=== PATIENT | male | born 1950 | race Caucasian/White ===

== ENCOUNTER 2016-12-19 15:10 | Inpatient (IN) ==
[~2016-12-19 15:10] MED LIST: *HR* Bivalirudin 250 MG VIAL IVC ONE; *HR* Heparin 10,000 UNIT/10 ML VIAL IV ONE; *HR* Heparin 10,000 UNIT/10 ML VIAL ONE; *HR* Magnesium Sulfate 2 GM/50 ML PIGGYBACK IVPB ONE; *HR* Phenylephrine 10 MG/ML VIAL IVC ONE; 0.9 % Sodium Chloride 1,000 ML ONE; Albumin Human 25% 25 GM/100 ML IV.SOLN IV ONE; Heparin 1,000 UNITS/500 mL NS 500 ML ONE; Lidocaine 2% Syringe 100 MG/5 ML IV ONE; Mannitol 25% vial 12.5 GM/50 ML VIAL IVP ONE; Nitroglycerin 1,000 MCG/10 ML VIAL IV ONE; Sodium Bicarbonate 50 MEQ/50 ML VIAL IVC ONE
[2016-12-19] MEDS ORDERED: Verapamil 5 MG/2 ML VIAL ONE (15:21)
--- NOTE | 2016-12-19 15:21 | Emergency Department Note ---
START Narrative - START START: [facility] and informed us that they had a STEMI that they were transferring. They faxed the EKG over. I read it and confirmed the presence of ST elevations in leads 1 and aVL with reciprocal changes in the inferior leads 3 and aVF. Before the patient arrived to the emergency department we had contacted catheter lab to notify them. They prepped the catheter lab in order to have the patient taken straight they are without having to stop in the emergency department. Patient arrived to the emergency department and while they were registering him I put the orders in for catheter lab. He was taken straight from the doorway to the catheter lab. I did not even have an opportunity to lay eyes on him.
[2016-12-19] MEDS ORDERED: *HR* FentaNYL (PF) 250 MCG/5 ML VIAL ONE (15:27)
[2016-12-19] MEDS ORDERED: *HR* Midazolam HCl 5 MG/5 ML VIAL IVP ONE ×2 (15:27→17:19)
[2016-12-19] MEDS ORDERED: Nitroglycerin 25 MG/250 ML INFUS..BTL IVC ONE ×3 (15:46→18:41)
[2016-12-19 16:15] LABS: Hematocrit 36.3 % (37.5-50.1); Hemoglobin 11.9 g/dL (12.9-16.9); Mean Corpuscular HGB Conc 32.8 g/dL (31.6-35.5); Mean Corpuscular Hemoglobin 30.8 pg (28.0-33.3); Mean Platelet Volume 9.7 fL (9.4-12.4); Platelet Count 245 K/mcL (140-400); Red Blood Count 3.86 M/mcL (4.19-5.50); Red Cell Distribution Width 13.8 % (11.5-14.5)
[2016-12-19 16:22] LABS: INR 1.1; Prothrombin Time 11.9 Seconds (9.4-12.1)
[2016-12-19 16:30] LABS: Albumin 3.1 g/dL (3.5-5.0); Albumin/Globulin Ratio 0.8 (1.1-2.2); Bilirubin,Total 0.5 mg/dL (0.2-1.2); Calcium 8.6 mg/dL (8.6-10.8); Globulin 3.7 g/dL (2.4-3.5); Potassium 4.1 mEq/L (3.5-4.5); Total Protein 6.8 g/dL (6.0-8.3)
--- NOTE | 2016-12-19 16:36 | Cardiothoracic Consult Note ---
Date of Encounter: 12/19/16 Time of Encounter: 16:32 Assessment and Plan (1) CAD (coronary artery disease) Current Visit: Yes Status: Acute The assessment and plan as outlined above was discussed with the patient and/or family members who expressed understanding and agreement. All questions were answered. Qualifiers: Coronary Disease-Associated Artery/Lesion type: [place] artery [place] vs. transplanted heart: [place] heart Associated angina: with unstable angina Qualified Code(s): I25.110 - Atherosclerotic heart disease of [place] coronary artery with unstable angina pectoris (2) STEMI (ST elevation myocardial infarction) Current Visit: Yes Status: Acute The patient is a 66-year-old hypertensive man with hypercholesterolemia and peripheral arterial disease who was transferred to [facility] from the [facility] with the diagnosis of an acute STEMI. The patient underwent emergent cardiac catheterization was found to have severe 3 vessel CAD. In particular the patient had a high-grade ostial left main lesion , a 70% proximal LCx lesion 70-80% proximal OM2 lesion, and a completely occluded distal RCA which filled via [id number] collaterals. The patient was recommended for emergent CABG due to the severity of his disease and ongoing symptoms. I concur with this recommendation. The patient will be taken for CABG this evening. The assessment and plan as outlined above was discussed with the patient and/or family members who expressed understanding and agreement. All questions were answered. Qualifiers: Involved coronary artery: left main coronary artery Qualified Code(s): I21.01 - ST elevation (STEMI) myocardial infarction involving left main coronary artery - History of Present Illness Consult date: 12/19/16 Requesting physician: Marcelino Vaca Consult reason: CABG evaluation. Chief complaint: Substernal chest pain. History of present illness: Mr. Hargrove is a 66 year old hypertensive man with known peripheral arterial disease was transferred to [facility] from the [facility] the diagnosis of an acute STEMI. The patient states that he is had intermittent substernal chest pain radiating from his left shoulder to his right shoulder and down his left arm for approximately 1 week. The pain occurs with both activity and at rest and resolves spontaneously after 20-30 minutes. The symptoms are not associated with shortness of breath, dyspnea on exertion, diaphoresis, nausea, vomiting, heart palpitations, or syncope. The patient was at the [facility] today smoking a cigarette when he had onset of severe substernal chest pain. During the evaluation he was found to have elevated troponin I levels consistent with an acute STEMI. he was transferred to [facility] for further cardiac care. The patient underwent cardiac catheterization was found to have severe 3 vessel CAD and LVEF 45%. In particular the patient has a 70-80% ostial left main lesion , a 70-80% proximal LCx lesion, a 70-80% mid LCx/OM 2 lesion, and a completely occluded distal RCA which fills distally via [id number] collaterals. The patient has been recommended for emergent CABG. Past Med Surg Social Fam HX - Past Medical History Medical history: COPD, coronary artery disease, hyperlipidemia, hypertension, peripheral artery disease, renal disease (Stage IV) - Past Surgical History Surgical History: appendectomy, cataract (Bilateral implants implantation.), vascular surgery (Aortobifemoral bypass.), other (Right upper extremity AV fistula formation. ) - Social History Smoking Status: Current every day smoker Packs per day: 1ppd X 56 years Smokeless Tobacco Status: No Alcohol use: rarely Drug use: none Occupational status: retired Current living situation: Home - Independent Activity Level: Independent ambulation Recent Out of Country Travel Within the Last 8 Weeks: No Exposure or Possible Exposure to Illness During Travel: No Medications and Allergies Allergies No Known Allergies Allergy (Unverified 12/19/16 15:55) All Systems Review: A 10-system review of systems was performed and is negative for pertinent findings except as documented above in the HPI. Physical Examination General: Conversant, No Apparent Distress HEENT: Atraumatic, Normocephaly, Trachea midline Neck: No JVD, Normal carotid pulses Cardiac: Reg Rate and Rhythm, Normal S1 and S2, No Murmur Lungs: Normal Breath Sounds, No Wheeze, Rales, Rhonchi Neuro: Alert and responsive, No focal deficits noted, Motor nerves intact, Sensory nerves intact Vascular: Normal capillary refill Musculoskeletal: No Chest Wall Tenderness Extremities: No Clubbing, No Cyanosis, No Edema, Other (Pulses present in the upper extremities and absent below the femoral arteries in both lower extremities. ) Results 12/19/16 21:20 12/19/16 21:20 Lab Results, Last 24 hours 02/13/17 02/13/17 02/13/17 16:02 16:02 16:02 WBC 12.4 H Hgb 11.9 L Hct 36.3 L Plt Count 245 INR 1.1 Sodium 135 L Potassium 4.1 Chloride 110 H Carbon Dioxide 14 L BUN 48 H Creatinine 3.45 H Glucose 109 H Calcium 8.6 Total Bilirubin 0.5 AST 17 ALT 15 Alkaline Phosphatase 77 Consult Discharge Plan - Plan [facility] Care Provider[facility] -
--- NOTE | 2016-12-19 16:39 | Cardiology Consult Note ---
Date of Encounter: 12/19/16 Time of Encounter: 15:30 Assessment and Plan Discussion w patient/family: The assessment and plan as outlined above was discussed with the patient and/or family members who expressed understanding and agreement. All questions were answered. Thank you for involving us in the care of your patient. Please call with any questions. patient has left main disease and needs urgent surgery. Spoke With Dr. Lopez. and seen in the ammunition assembly ii laborer with him. History of Present Illness Consult date: 12/19/16 Consult reason: STEMI Chief complaint: chest pain History of present illness: Mr. Hargrove is a 66 year old male was at home and smoking and started chest pain with radiation to the left arm. Seen at the [facility] and diagnosed with anterior wall STEMI. Transferred directly to this ammunition assembly ii laborer. I met patient on the table and discussed procedure. He had previous caths times two. Has renal failure and does have a shunt in the right arm but probably not dialyzed yet. Has prior bilateral aorto-femoral bypass. We did approach from the left radial Past Med Surg Social Fam HX - Past Surgical History Surgical History: other (s/p aorto-bifemoral bypass) Medications and Allergies Allergies No Known Allergies Allergy (Unverified 12/19/16 15:55) All Systems Review: A 10-system review of systems was performed and is negative for pertinent findings except as documented above in the HPI. - Constitutional Constitutional: anorexia, fever(s), night sweats - EENT Nose, mouth and throat: dysphagia - Cardiovascular Cardiovascular: as per HPI, chest pain with exertion, claudication, dyspnea on exertion, radiating jaw, neck or arm pain Physical Examination General: Conversant, No Apparent Distress HEENT: Normocephaly, Mucus Membranes Moist Cardiac: Reg Rate and Rhythm, Normal S1 and S2 Lungs: Normal Breath Sounds, No Wheeze, Rales, Rhonchi Neuro: Alert and responsive, No focal deficits noted Musculoskeletal: No Chest Wall Tenderness Extremities: No Clubbing, No Cyanosis Results 12/19/16 16:02 12/19/16 16:02 Lab Results 12/19/16 12/19/16 12/19/16 16:02 16:02 16:02 WBC 12.4 H Hgb 11.9 L Hct 36.3 L Plt Count 245 INR 1.1 Sodium 135 L Potassium 4.1 Chloride 110 H Carbon Dioxide 14 L BUN 48 H Creatinine 3.45 H Glucose 109 H Calcium 8.6 Total Bilirubin 0.5 AST 17 ALT 15 Alkaline Phosphatase 77 Consult Discharge Plan - Plan [facility]: [facility] [Primary Care Provider[facility] -
[2016-12-19] MEDS ORDERED: ceFAZolin 2,000 MG in D5% in Water 100 ML IVPB ONE (16:42)
[2016-12-19 16:47] LABS: Activated Partial Thrombo Time 176.1 Seconds (26.0-36.0)
--- NOTE | 2016-12-19 16:47 | Invasive Diagnostic Lab Proc ---
Name: Bill Hargrove Date of Study: 12/19/2016 Date: 1950 Ht: 67.0in Medical Record#: [id number] Age: 66 Wt: 160.28lb Gender: Male BSA: 1.84 Order #: [id number] BMI: 25.1 Physicians Procedure Physician: Stewart Vaca MD Referring MD: Referring MD: Staff Name Position Time In Chantelle Frank RT Scrub 03:20 PM Sheyla Jacques RN Dredge Master 03:20 PM [facility], Mónica RT (R) Monitor 03:20 PM Indications Indication STEMI Procedures Performed Procedure L HRT ARTERY/VENTRICLE ANGIO Pre-Procedure Checklist Informed consent is complete signed and on chart. H\\T\\P is on chart. ID band is on and ID verified with patient. Patient NPO for procedure The procedure was described for the patient and questions were answered. Blood Pressure: 114/64 ECG is on chart. Rhythm: NSR Plan of Care Patient will tolerate the procedure without complications. Adequate level of comfort will be maintained. Hemodynamics will remain stable Patient will recover from procedure without complications. Respiratory function will be maintained. Cardiac rhythm will remain stable. Patient temperature will be maintained. Patient and/or family have verbalized understanding of the procedure. Patient Education Intravenous Access Time IV Size Location DC'd Fluid/Drip Rate Units RN 03:33 PM 20g 1 11/09" Patent On Arrival Lt Hand 0.9NaCl 25 ml/hr Sheyla Jacques RN Allergies Nkda No Known Allergies Vital Signs Time BP (mmHg) HR (bpm) O2 Sat. RR (bpm) LOC 03:21 PM 109 / 60 64 95 % 16 5 = Fully awake and oriented or at pre-proc level 03:21 PM / % 5 = Fully awake and oriented or at pre-proc level 03:17 PM 114 / 64 68 96 % 11 03:22 PM 85 / 59 181 96 % 18 03:22 PM 97 / 62 65 96 % 14 03:27 PM 110 / 54 62 96 % 16 03:32 PM 109 / 60 62 95 % 15 03:37 PM 108 / 91 66 92 % 23 03:42 PM 110 / 93 61 93 % 15 03:47 PM 100 / 50 65 94 % 23 03:52 PM 108 / 54 68 93 % 20 03:57 PM 100 / 83 70 93 % 15 04:02 PM 96 / 56 83 92 % 22 04:07 PM 103 / 53 69 92 % 17 Procedural Medications Time Medication Dose Units Method Given By 03:21 PM Oxygen 2 L/min nasal cannula Sheyla Jacques RN 03:34 PM Versed 1 mg Intravenous Sheyla Jacques RN 03:34 PM Fentanyl 50 mcg Intravenous Sheyla Jacques RN 03:35 PM Lidocaine 2% 2 ml Subcutaneous Stewart Vaca MD 03:36 PM Heparin 4000 units Nitroglycerin 200 mcg Verapamil 2.5 mg Intraarterial Stewart Vaca MD 03:38 PM Oxygen 4 L/min nasal cannula Sheyla Jacques RN 03:40 PM Oxygen 6 L/min nasal cannula Sheyla Jacques RN 03:45 PM Nitroglycerin 200 mcg Intracoronary stewart Vaca md 04:02 PM Nitroglycerin 5 mcg/min Intracoronary Sheyla Jacques RN Paty Score Preprocedure Postprocedure Activity 2- Moves 4 extremities sustained head lift Activity 2- Moves 4 extremities sustained head lift Circulation 2- SBP +/= 20 points of pre-anesthetic level Circulation 2- SBP +/= 20 points of pre-anesthetic level Consciousness 2- Awake and alert oriented x 3 Consciousness 2- Awake and alert oriented x 3 O2 Saturation 2- Able to maintain O2 satruation of 92% on room air O2 Saturation 2- Able to maintain O2 satruation of 92% on room air Respiratory 2- Able to deep breathe and cough well Respiratory 2- Able to deep breathe and cough well Total Score 10 Total Score 10 Contrast Agent: Isovue Diagnostic Contrast: 113 ml Total Contrast: 113 ml Fluoro Dose: 353 mGy Procedure Log Time Note Enter By 03:13 PM Pt arrived to flower shop laborer/designer 2 at 15:13 tsites 03:16 PM Vitals capture started with the following parameters, Patient=Adult, Interval=5 min, Initial Zbronfpr=541 mmHg, Deflation Rate=5 mmHg, Cuff placed on Left Leg 03:16 PM CathStat 03:17 PM HR=68 bpm, QDMW=203/64 mmhg, SpO2=96.0 %, Resp=11 B/min 03:20 PM Meet and greet completed tsites 03:20 PM Patient charges- Angio tray pack, Navilyst 3mm J, Pulse Oximetry and ACIST tubing and transducer tsites 03:20 PM Chantelle Frank RT Position: Scrub Time in: 15:20 tsites 03:20 PM Sheyla Jacques RN Position: Dredge Master Time in: 15:20 tsites 03:21 PM Elder Mónica RT (R) Position: Monitor Time in: 15:20 tsites 03: PM Case Delayed No tsites 03: PM Hair removed from procedure site in holding area using clippers. Bilateral groin and lt wrist prepped with Chloraprep by Valentina Johnston RN then patient draped. Skin intact. tsites 03: PM Time: 15:21 Oxygen on at 2 L/min per nasal cannula by Sheyla Jacques RN tsites 03: PM Time: 15:21 Patient comfortable and pain free: Yes tsites : PM Time: 15:21LOC: 5 = Fully awake and oriented or at pre-proc level tsites 03:21 PM Clinical Presentation: STEMI or equivalent tsites 03:22 PM QS=798 bpm, NIBP=85/59 mmhg, SpO2=96.0 %, Resp=18 B/min 03:22 PM NIBP STAT measurement started. 03:22 PM HR=65 bpm, NIBP=97/62 mmhg, SpO2=96 %, Resp=14 B/min 03:25 PM Pressure channel 1 zeroed. 03:27 PM no labs drawn prior to procedure tsites 03:27 PM HR=62 bpm, UWAD=651/54 mmhg, SpO2=96.0 %, Resp=16 B/min 03:28 PM Recorded ECG: HR=66 Condition=Condition 1 03:30 PM Physician arrived 15:30 tsites 03:30 PM Procedure start 15:30 tsites 03:32 PM HR=62 bpm, XAQN=538/60 mmhg, SpO2=95.0 %, Resp=15 B/min 03:32 PM Time out performed according to hospital policy tsites 03:34 PM Time: 15:34 Versed 1 mg Intravenous Given by Sheyla Jacques RN 03:34 PM Time: 15:34 Fentanyl 50 mcg Intravenous Given by Sheyla Jacques RN tsites 03:35 PM Time: 15:35 2 ml Lidocaine 2% to left radial Subcutaneous Given by Stewart Vaca MD tsites 03:35 PM Access obtained by percutaneous puncture. 5Fr 10cm Terumo Glidesheath sheath placed in left Radial artery. [id number] tsites 03:36 PM Time: 15:36 Patient given 4,000 units Heparin, 200 mcg Nitroglycerin, and 2.5 mg Verapamil Intraarterial by Stewart Vaca MD tsites 03:36 PM Time: 15:21 Patient comfortable and pain free: Yes tsites 03:36 PM Time: 15:21LOC: 5 = Fully awake and oriented or at pre-proc level tsites 03:37 PM 5Fr FR 4 catheter inserted over the wire DN tsites 03:37 PM HR=66 bpm, KRTP=705/91 mmhg, SpO2=92 %, Resp=23 B/min 03:38 PM 0.035 260cm Navilyst 3mmJ wire [id number] tsites 03:38 PM Wire removed tsites 03:38 PM Time: 15:38 Oxygen on at 4 L/min per nasal cannula by Sheyla Jacques RN tsites 03:39 PM RCA angiography performed in multiple views. tsites 03:39 PM wire reinserted catheter removed tsites 03:40 PM 6Fr XB LAD 3.5 [place] Bright-Tip guide catheter was used to cannulate the PCI vessel successfully. reused? No tsites 03:40 PM Time: 15:40 Oxygen on at 6 L/min per nasal cannula by Sheyla Jacques RN tsites 03:41 PM Guide wire removed intact. tsites 03:41 PM LCA angiography performed in multiple views. tsites 03:41 PM Recorded Pressure: Ao, HR=64, Condition=Condition 1 (Aorta) Ao 119/53/76 03:42 PM HR=61 bpm, JTEC=808/93 mmhg, SpO2=93 %, Resp=15 B/min 03:45 PM Time: 15:45 Nitroglycerin 200 mcg Intracoronary Given by stewart Vaca md tsites 03:46 PM 5Fr Pigtail catheter inserted over the wire DN tsites 03:46 PM Catheter selectively placed in left ventricle tsites 03:47 PM HR=65 bpm, PCYB=940/50 mmhg, SpO2=94.0 %, Resp=23 B/min 03:47 PM Recorded Pressure: LV, HR=68, Condition=Condition 1 (Left Ventricle) LV 131/20/29 03:48 PM Bolus angiogram of left Ventricle complete: 10 ml/sec for a total of 30 mls tsites 03:48 PM Recorded Pressure: LV, Ao, HR=68, Condition=Condition 1 (Left Ventricle) LV 134/24/36, (Aorta) Ao 137/65/92 03:48 PM wire reinserted catheter removed tsites 03:50 PM Procedure completed at 15:50 tsites 03:50 PM Cardiothoracic surgeon consulted by physician tsites 03:52 PM HR=68 bpm, NICX=567/54 mmhg, SpO2=93.0 %, Resp=20 B/min 03:52 PM Sign out completed: Radiation Dose 353 mGy Fluoro Time: 3.2 Isovue 370 - 500ml contrast 113 ml given by Stewart Vaca MD. Complications: NoneCardiac Rehab Consult needed: YesConfirmed administered medications: Yes tsites 03:57 PM HR=70 bpm, OOQX=542/83 mmhg, SpO2=93 %, Resp=15 B/min 04:02 PM HR=83 bpm, NIBP=96/56 mmhg, SpO2=92 %, Resp=22 B/min 04:02 PM Time: 16:02 Nitroglycerin 5 mcg/min Intracoronary Given by Sheyla Jacques RN tsites 04:03 PM labs drawn and sent to lab pt getting ready for open heart tsites 04:07 PM HR=69 bpm, BCIX=013/53 mmhg, SpO2=92 %, Resp=17 B/min 04:[address] lopez arrived to review films tsites 04:21 PM Sheath left in place for Henna tsites 04:21 PM Post ECG NSR tsites 04:21 PM Post Blood Pressure 103/53 tsites 04:22 PM 16:21 Post Pulses Bilateral DP \\T\\ PT 2+ tsites 04:22 PM 16:22 Post Pulses Rt Radial 2+ tsites 04:22 PM Information taught Cardiac Cath tsites 04:22 PM Education needs Procedure, Plan of Care, and Responsibilities of Patient in Care tsites 04:22 PM Learning barriers :None tsites 04:22 PM Education Methods Verbal tsites 04:22 PM Education evaluation Able to repeat information tsites 04:22 PM Site status No bleeding/hematoma - Rt Wrist as reported by Chantelle Frank RT at 16:22 tsites 04:24 PM Report given to lorena RAMÍREZ Pt taken to ICU Room #11. 16:24 tsites 04:24 PM Plavix, Effient or Brilinta given No tsites 04:26 PM Delay to floor No tsites 04:26 PM Patient out of room: 16:26 tsites 04:26 PM Family placed in icu waiting area for DR Lopez. tsites 04:31 PM Coronary Dominance: right tsites 04:32 PM Lesion found in LMCA. Pre Stenosis: 90 Pre DIONE Flow: tsites 04:32 PM Lesion found in Right PDA. Pre Stenosis: 100 Pre DIONE Flow: tsites 04:32 PM Lesion found in Mid Circumflex. Pre Stenosis: 75 Pre DIONE Flow: tsites 04:32 PM Left Main Coronary Artery with 90% stenosis tsites 04:33 PM Circumflex, Obtuse Marginal, Left Posterior Descending, and Left Posterolateral Coronary Arteries with 75 % stenosis. If graft is supplying this area, % stenosis tsites 04:33 PM Right Coronary, Right Posterior Descending Arteries with Right Posterolateral and Acute Marginal branches with 100 % stenosis. If graft is supplying this area, % stenosis tsites Complications Complication None Hemodynamics Pressures Site Systolic/A Wave Diastolic/V Wave Mean AO 119 53 76 LV 131 20 29 LV 134 24 36 AO 137 65 92 Post Procedure Information Blood Pressure: 103/53 mmHg Rhythm: NSR Post procedural instructions were given Surgery consult for CABG Closure Device Time Device Success/Fail 12/19/2016 4:26:00 PM Site Checks Time Location Status Staff Sheath In? Note 04:22 PM Rt Wrist No bleeding/hematoma Chantelle Frank RT Pulses Time Site Pre-Procedure Post-Procedure Note Bilateral DP \\T\\ PT 2+ Bilateral radial 2+ Rt Radial Normal plethysmography's Test 4:21:00 PM Bilateral DP \\T\\ PT 2+ 4:22:00 PM Rt Radial 2+ Updated by Mónica Friedman RT (R) on 12/19/2016 4:40:21 PM Mónica Friedman RT electronically signed on 12/19/2016 4:42:15 PM with status of Final
[2016-12-19 16:54] LABS: Heparin anti-factor XA UFH 0.72 IU/mL (0.30-0.70)
[2016-12-19] MEDS ORDERED: *HR* Phenylephrine 10 MG/ML VIAL ONE (16:55)
[2016-12-19] MEDS ORDERED: *HR* Norepinephrine 4 MG/4 ML VIAL IVC ONE (16:55)
[2016-12-19] MEDS ORDERED: *HR* Rocuronium Bromide 50 MG/5 ML VIAL ONE ×2 (16:55→17:12)
[2016-12-19] MEDS ORDERED: *HR* EPINEPHrine 1 MG/ML AMPUL ONE ×2 (16:56→21:27)
[2016-12-19] MEDS ORDERED: Protamine Sulfate 250 MG/25 ML VIAL IVP ONE (16:56)
[2016-12-19] MEDS ORDERED: Famotidine 20 MG/2 ML VIAL ONE (16:56)
[2016-12-19] MEDS ORDERED: Tranexamic Acid 1,000 MG/10 ML VIAL ONE ×2 (16:56→18:46)
[2016-12-19] MEDS ORDERED: *HR* Etomidate 20 MG/10 ML AMPUL IVP ONE (16:56)
[2016-12-19 17:04] LABS: Hemoglobin A1C 5.2 %
[2016-12-19] MEDS ORDERED: NiCARdipine 2.5 MG/10 ML Syringe IVPB ONE (17:11)
[2016-12-19] MEDS ORDERED: *HR* FentaNYL (PF) 1,000 MCG/20 ML VIAL ONE (17:20)
--- NOTE | 2016-12-19 17:33 | Invasive Diagnostic Lab ---
Name: Bill Hargrove Date of Study: 12/19/2016 Date: 1950 Ht: 170.2 cm /67.0 in Medical Record#: [id number] Age: 66 Wt: 72.7 kg / 160.28 lb Account/Order#: [id number] Gender: Male BSA: 1.84 Order #: [id number] Fluoro Dose: 353 mGy BMI: 25.1 Procedure Physician: Marcelino Vaca MD Referring MD: Referring MD: Procedures Performed: LEFT HEART CATH Indications: STEMI Impressions: There is severe two vessel coronary artery disease. And left main ostial stenosis 90% The left ventricle is abnormal and has EF 45% anterior hypo to akinesia Recommendations: . Aggressive risk factor modification. Suggest patient have Emergent coronary artery bypass surgery evaluation. Viewed images in the wetlands conservation laborer with Dr. Lopez Procedure Access obtained in the left Radial artery by percutaneous puncture Complications: None Contrast: Isovue 113ml Hemodynamics: Pressures Site Systolic/ A Wave Diastolic/ V Wave End Diastolic/ Mean HR AO 119 53 76 64 LV 131 20 29 68 LV 134 24 36 69 AO 137 65 92 67 LV Ventriculography Ejection Method: LV Gram Ejection Fraction: 45% Wall Motion: WELLER Anterobasal Normal Anterolateral Normal Apical: Normal Inferoapical Akinesis Inferobasal Normal Coronary Dominance: right Lesion Findings/Interventions * Left Main Coronary Artery There is a 90% stenosis in the LMCA. * Left Anterior Descending The LAD is angiographically free of disease. The 1st Diagonal is angiographically free of disease. * Circumflex There is a 75% stenosis in the Mid Circumflex. * Right Coronary Artery There is a 100% stenosis in the Right PDA. Additional Findings: Aorta * Normal appearing aortic root. Updated by Mónica Friedman RT (R) on 12/19/2016 4:42:21 PM Marcelino Vaca MD electronically signed on 12/19/2016 5:28:00 PM with status of Final
[2016-12-19] MEDS ORDERED: *HR* Amiodarone 150 MG/3 ML VIAL IVPB ONE (18:29)
[2016-12-19] MEDS ORDERED: Amiodarone Premix 360 MG/200 ML BAG IVC ONE ×3 (18:29→21:52)
[2016-12-19] MEDS ORDERED: niCARdipine 40 MG/200 ML MLS IVC ONE (18:42)
[2016-12-19] MEDS ORDERED: Albumin Human 5% 50.0 GM/1,000 ML VIAL ONE (18:42)
[2016-12-19] MEDS ORDERED: 0.9 % Sodium Chloride w KCl 20 MEQ/1,000 ML MLS IVC ONE (18:44)
--- NOTE | 2016-12-19 19:22 | Anesthesia Evaluation PreOp ---
Date of Encounter: 12/19/16 Time of Encounter: 17:30 - Past History Planned Operation: emergent CABG Cardiac History: Angina, HTN, Hyperlipidemia, Other (PAD) Pulmonary History: Smoker, Pack/yr (1ppd x 56 yrs) COLLEGE DEAN History: Denies Any Significant HX Other Medical History: Renal (Stage 4 CKD, not on dialysis but has fistula in right arm) Anesthesia History: No Prior Anesthetic Complications, Past Anesthesia ( Appendectomy, Aorta-Bifem BPG, fistula placement) Alcohol Use: rarely Drug use: none Medications and Allergies Allergies No Known Allergies Allergy (Unverified 12/19/16 15:55) - Meds/Allergy Pre-op Review Medications Reviewed: Yes Allergies Reviewed: Yes Beta Blockers on Current Med List: No Anesthesia Results - Labs 12/20/16 03:00 12/20/16 04:14 - Imaging Additional studies: cath shows 3 vessel disease, EF 45% Anesthesia Exam Selected Entries 12/19/16 17:18 Pulse Rate 62 Respiratory Rate 22 Blood Pressure 108/66 O2 Sat by Pulse Oximetry 93 L Oxygen Flow Rate (LPM) 4 Height: 170cm Weight: 72kg NPO (# of Hours): 8 Pain Scale: 0 Pain Scale Used: Numeric (1 - 10) - HEENT Pupil (Motor): EOMI Mallampati: II Teeth: Edentulous Oral Opening: Greater than 3 - COLLEGE DEAN LOC: Oriented [place] Motor: Normal RUE, Normal LUE, Normal RLE, Normal LLE, Normal Face COL[place]AN Sensory: Normal: RUE, LUE, RLE, LLE, Face - Cardiac Rhythm: Regular Murmur: None - Pulmonary Breath Sounds: bilateral Clear Respiratory Effort: Symmetrical Anesthesia Assess/Plan ASA Score: 4, E Modified [place] Scale for Level of Consciousness: Cooperative, oriented, and tranquil Anesthetic Plan: General Monitoring Plan: Standard Monitors, A-Line (patient has sheath margarette place from paving and surfacing labourer and will use it for toby), PAC Recovery Plan: PACU (discussed risks of GA, lines, blood and possible LADAN. Questions answered and agrees to proceed.)
[2016-12-19] MEDS ORDERED: 0.9 % Sodium Chloride 250 ML ONE (21:27)
--- NOTE | 2016-12-19 21:31 | Operative Note ---
Date of procedure: 12/19/16 Pre-op diagnosis: CAD with STEMI Post-op diagnosis: same Procedure: 1. CABG 5 (HAN to LAD, triple sequential saphenous vein graft to D1 then OM1 then OM 2, SVG to PDA). 2. Endoscopic vein harvesting, greater saphenous vein from right lower extremity. Implants: None. Complications: None. Anesthesia: BLADIMIR Surgeon: Corina Lopez Clerk Analyst: Srinivas Gonzalez Specimen: None. Condition: stable Disposition: ICU Procedure in Detail: INDICATIONS FOR OPERATION: The patient is a a 66 year old hypertensive man with known peripheral arterial disease was transferred to [facility] from the [facility] the diagnosis of an acute STEMI. The patient states that he is had intermittent substernal chest pain radiating from his left shoulder to his right shoulder and down his left arm for approximately 1 week. The pain occurs with both activity and at rest and resolves spontaneously after 20-30 minutes. The symptoms are not associated with shortness of breath, dyspnea on exertion, diaphoresis, nausea, vomiting, heart palpitations, or syncope. The patient was at the [facility] today smoking a cigarette when he had onset of severe substernal chest pain. During the evaluation he was found to have elevated troponin I levels consistent with an acute STEMI. he was transferred to [facility] for further cardiac care. The patient underwent cardiac catheterization was found to have severe 3 vessel CAD and LVEF 45%. In particular the patient has a 70-80% ostial left main lesion , a 70-80% proximal LCx lesion, a 70-80% mid LCx/OM 2 lesion, and a completely occluded distal RCA which fills distally via [id number] collaterals. The patient has been recommended for emergent CABG. FINDINGS AT OPERATION: The aorta was of normal caliber without calcification. The patient had moderate pulmonary hypertension with systolic pulmonary artery pressures 45-50mm Hg. The coronary arteries measure approximately 2-3 mm in diameter and had mild distal disease. The greater saphenous vein was harvested endoscopically from the right lower extremity from the knee to the groin and was of good quality. The total bypass time was 86 minutes, cross-clamp time 50 minutes, intentional hypothermia of 34.2C. DESCRIPTION OF OPERATION: After obtaining informed consent from the patient, he was taken to the operative room where satisfactory general endotracheal anesthetic was induced. Appropriate monitor lines placed, and the patient's chest, abdomen, and lower extremities were prepped and draped in a sterile fashion. The greater saphenous vein was harvested endoscopically from the right lower extremity from the knee to the groin and was of good quality. The subcutaneous tissue and skin edges were reapproximated running Vicryl sutures. Simultaneously, a standard medium sternotomy incision was made and the sternum divided. At this point the patient was noted to be in ventricular tachycardia and the pericardium was rapidly opened and the patient cardioverted with a 10 J direct current shock. The patient's heart regained normal sinus rhythm. The HAN was taken down from its bed and side branches divided between hemoclips. The sternum was and the pericardium was reflected laterally. The patient was prepared for cannulation by placing pursestring sutures in the distal ascending aorta, mid-ascending aorta, and right atrial appendage. The patient was heparinized and when the ACT was greater than 200 seconds, the distal ascending aorta was cannulated followed by placement of a dual stage venous cannula through the right atrial appendage and into the IVC. A stab-in antegrade metabolic cannula was placed in the mid-ascending aorta. The patient was placed on bypass and the temperature allowed to drift to 34.2 C. The distal targets were identified and the aorta was then crossclamped. The patient received 500 cc of cold antegrade crystalloid cardioplegia through the aortic root and the patient's heart obtain rapid diastolic arrest. The PDA was opened with the blade and the vein was anastomosed in an end-to-side fashion using a running 7-0 Prolene suture. The anastomosis was found to be hemostatic. This process was repeated for the OM2 branch. After completion of this anastomosis the OM1 branch was opened with a [place] blade and the vein was opened in a longitudinal fashion so that a wouy-in-zwhl anastomosis could be completed using a running 7-0 Prolene suture. The anastomosis was found to be hemostatic and the patient received a note the dose of cold antegrade crystalloid cardioplegia through the aortic root. The D1 branch was opened with a [place] blade and the vein was opened in a longitudinal fashion so that a side- to-side anastomosis could be completed using a running 7-0 Prolene suture. The anastomosis found to be hemostatic. It should be noted that a single vein segment was used for all 3 sequential grafts. The patient received a final dose of cold antegrade crystalloid cardioplegia through the aortic root. The LAD was then opened with a [place] blade and the HAN was anastomosed in end-to-side fashion using a running 7-0 Prolene suture. The anastomosis hemostatic and the mammary pedicle was tacked to the epicardium using interrupted 5-0 silk suture. Rewarming was begun during this anastomosis. The aortic cross-clamp was released and the heart distended. The veins were then measured to appropriate length. A partial occluding clamp was then placed across the mid-ascending aorta and the antegrade cardioplegia cannula was removed. An additional aortotomy site was then made with 11 blade and both sides were enlarged with a 4 mm punch. The veins were then anastomosed in an end -to-side fashion to the aorta using a running 5-0 Prolene suture. The vein grafts were occluded with bulldog clamps and D of the 25-gauge needle prior to removing the partial occluding clamp. The proximal and distal anastomoses were found to be hemostatic and the proximal anastomoses were marked with radiopaque loops. Two right ventricular temporary epicardial patient was placed, and 3 Chest were placed, 2 in the mediastinum and one in the left pleural space. During rewarming the patient's heart regained sinus rhythm spontaneously. The patient's systemic temperature reached 36C he was ventilated and received volume. He was then weaned from bypass and initially required no inotropic support. Protamine was administered and the aortic and venous caries removed. The pursestring sutures were secured and the cannulation sites were reinforced with 4-0 Prolene suture. At this point the patient became bradycardic and hypotensive and the pulmonary artery pressures increased slightly. The patient was given calcium and epinephrine and prepared for cardiopulmonary bypass. After the heparin had been administered the patient's systolic pressure began to gradually improve and it was decided not to reinitiate cardiopulmonary bypass. No further protamine was administered, thinking that this episode may have been related to a protamine reaction. The pericardium was loosely placed over the aorta and the pulmonary artery, but not reapproximated using 0 silk suture. The sternum was reapproximated using double wires, and the pectoralis major fascia, rectus abdominis fascia, subcutaneous tissue, and skin edges were approximately lesion running Vicryl sutures. A negative pressure sterile dressing was placed on the sternotomy incision. The patient was transferred to the ICU in satisfactory postoperative condition. There were no intraoperative complications, and the instrument, needle, and sponge count were correct at the end of operation. - Open Heart Detail WINSTON (Internal Mammary Artery) Usage: Yes Cardiopulmonary Bypass Time (mins): 86 Aortic Cross Clamp Time (mins): 50 Intentional Hypothermia Temperature (C.): 34.2
[2016-12-19 21:33] LABS: Basophils % 0.2 %; Eosinophils # 0.5 K/mcL (0.0-0.6); Eosinophils % 2.5 %; Hematocrit 28.8 % (37.5-50.1); Hemoglobin 9.7 g/dL (12.9-16.9); Immature Granulocytes % 1.4 % (0-4); Lymphocytes # 3.5 K/mcL (0.6-4.6); Mean Corpuscular HGB Conc 33.7 g/dL (31.6-35.5); Mean Corpuscular Hemoglobin 31.9 pg (28.0-33.3); Mean Corpuscular Volume 94.7 fL (83.0-100.0); Mean Platelet Volume 9.5 fL (9.4-12.4); Monocytes # 0.7 K/mcL (0.0-1.3); Monocytes % 3.6 %; Neutrophils # 13.3 K/mcL (1.6-8.9); Platelet Count 92 K/mcL (140-400); Red Blood Count 3.04 M/mcL (4.19-5.50); Red Cell Distribution Width 13.6 % (11.5-14.5); Segmented Neutrophils % 73.3 %
[2016-12-19 21:40] LABS: ABG Base Excess -4.7 mEq/L (-2.0 to 3.0); ABG HCO3 22.4 mEQ/L (21-27); ABG Oxygen Saturation 98 % (95-98); ABG PCO2 50 mmHg (35-45); ABG PH 7.26 pH Units (7.32-7.45); ABG PO2 123 mmHg (85-104); ABG TCO2 23.9 mEq/L (20-26)
[2016-12-19 21:43] LABS: Potassium 3.1 mEq/L (3.5-4.5)
[2016-12-19 21:46] LABS: Calcium 6.9 mg/dL (8.6-10.8)
[2016-12-19] MEDS ORDERED: Insulin Regular, Human 100 UNIT/ML IV PRN (21:52)
[2016-12-19] MEDS ORDERED: *HR* Dextrose 50 % in Water (Syg) 50 ML SYRINGE IVP PRN (21:52)
[2016-12-19] MEDS ORDERED: Ondansetron 4 MG/2 ML VIAL IVP PRN (21:52)
[2016-12-19] MEDS ORDERED: Acetaminophen 325 MG TABLET PO PRN (21:52)
[2016-12-19] MEDS ORDERED: Magnesium Sulfate 2 GM in D5% in Water 100 ML IVPB PRN (21:52)
[2016-12-19] MEDS ORDERED: Potassium Chloride 40 MEQ/200 ML BAG IVPB PRN (21:52)
[2016-12-19] MEDS ORDERED: Calcium Chloride 1,000 MG in 0.9 % Sodium Chloride 100 ML IVPB PRN (21:52)
[2016-12-19] MEDS ORDERED: Acetaminophen 650 MG RECTAL SUPP RC PRN (21:52)
[2016-12-19] MEDS: Nitroglycerin 25 MG/250 ML INFUS..BTL IVC SCH (22:15)
[2016-12-19 22:32] LABS: Basophils # 0.1 K/mcL (0.0-0.2); Basophils % 0.3 %; Eosinophils # 0.5 K/mcL (0.0-0.6); Eosinophils % 2.2 %; Immature Granulocytes % 1.6 % (0-4); Lymphocytes # 2.7 K/mcL (0.6-4.6); Lymphocytes % 12.3 %; Mean Corpuscular HGB Conc 33.1 g/dL (31.6-35.5); Mean Corpuscular Hemoglobin 31.1 pg (28.0-33.3); Mean Platelet Volume 9.5 fL (9.4-12.4); Monocytes # 1.7 K/mcL (0.0-1.3); Monocytes % 7.7 %; Neutrophils # 16.6 K/mcL (1.6-8.9); Platelet Count 134 K/mcL (140-400); Red Blood Count 4.15 M/mcL (4.19-5.50); Red Cell Distribution Width 13.6 % (11.5-14.5); Segmented Neutrophils % 75.9 %
[2016-12-19 22:34] LABS: ABG Base Excess -5.2 mEq/L (-2.0 to 3.0); ABG Oxygen Saturation 85 % (95-98); ABG PCO2 49 mmHg (35-45); ABG PH 7.26 pH Units (7.32-7.45); ABG PO2 58 mmHg (85-104); ABG TCO2 23.5 mEq/L (20-26); Blood Gas FiO2 50 %
[2016-12-19 22:37] LABS: Hemoglobin 12.9 g/dL (12.9-16.9)
[2016-12-19 22:38] LABS: INR 1.3
[2016-12-19 22:45] LABS: Magnesium 2.4 mg/dL (1.6-2.6)
[2016-12-19 22:46] LABS: Calcium 8.4 mg/dL (8.6-10.8); Potassium 5.5 mEq/L (3.5-4.5)
[2016-12-19 22:47] LABS: Activated Partial Thrombo Time 35.5 Seconds (26.0-36.0)
[2016-12-19] MEDS: niCARdipine 40 MG/200 ML MLS IVC SCH (23:21)
[2016-12-19] MEDS: Insulin Human Regular 100 UNIT in 0.9 % Sodium Chloride 100 ML IV SCH (23:23)
[2016-12-19] MEDS: 0.9 % Sodium Chloride 1,000 ML IVC SCH (23:28)
[2016-12-20] MEDS: Pantoprazole 40 MG VIAL IVP SCH ×2 (00:08→05:11)
[2016-12-20] MEDS: Metoclopramide 10 MG/2 ML VIAL IVP SCH ×5 (00:08→23:07)
[2016-12-20] MEDS: Chlorhexidine Rinse 15 ML MOUTHWASH MM SCH ×2 (00:08→09:48)
[2016-12-20] MEDS: Amiodarone Premix 360 MG/200 ML BAG IVC SCH ×3 (00:13→20:05)
[2016-12-20] MEDS: EPINEPHrine 1 MG in D5% in Water 250 ML IVC SCH ×2 (00:38→19:52)
[2016-12-20] MEDS: *HR* Morphine 2 MG/ML SYRINGE IVP PRN ×6 (01:11→23:59)
[2016-12-20] MEDS: ceFAZolin 2,000 MG in D5% in Water 100 ML IVPB SCH ×2 (01:18→09:33)
[2016-12-20 02:51] LABS: ABG HCO3 19.8 mEQ/L (21-27); ABG Oxygen Saturation 91 % (95-98); ABG PCO2 53 mmHg (35-45); ABG PH 7.18 pH Units (7.32-7.45); ABG PO2 77 mmHg (85-104); ABG TCO2 21.4 mEq/L (20-26); Blood Gas FiO2 50 %
[2016-12-20 03:11] LABS: Hematocrit 41.1 % (37.5-50.1); Hemoglobin 13.7 g/dL (12.9-16.9); Mean Corpuscular HGB Conc 33.3 g/dL (31.6-35.5); Mean Corpuscular Hemoglobin 31.7 pg (28.0-33.3); Mean Corpuscular Volume 95.1 fL (83.0-100.0); Mean Platelet Volume 9.9 fL (9.4-12.4); Platelet Count 179 K/mcL (140-400); Red Blood Count 4.32 M/mcL (4.19-5.50)
[2016-12-20 03:15] LABS: INR 1.2
[2016-12-20 03:18] LABS: Activated Partial Thrombo Time 54.5 Seconds (26.0-36.0)
[2016-12-20 03:21] LABS: Prothrombin Time 12.9 Seconds (9.4-12.1)
[2016-12-20 03:35] LABS: Basophils # 0.6 K/mcL (0.0-0.2); Lymphocytes # 2.2 K/mcL (0.6-4.6); Monocytes # 3.3 K/mcL (0.0-1.3); Platelet Estimate Normal (Normal); Reactive Lymphocytes Present (Not Present); Toxic Granulation Present (Not Present); Toxic Vacuolation Present (Not Present)
[2016-12-20 04:41] LABS: Calcium 7.9 mg/dL (8.6-10.8); Magnesium 2.4 mg/dL (1.6-2.6)
[2016-12-20 04:44] LABS: Potassium 3.5 mEq/L (3.5-4.5)
[2016-12-20 06:23] LABS: ABG Base Excess -6.6 mEq/L (-2.0 to 3.0); ABG HCO3 19.1 mEQ/L (21-27); ABG Oxygen Saturation 98 % (95-98); ABG PCO2 38 mmHg (35-45); ABG PH 7.31 pH Units (7.32-7.45); ABG PO2 112 mmHg (85-104); ABG TCO2 20.3 mEq/L (20-26)
[2016-12-20 06:25] LABS: Blood Gas FiO2 50 %; Blood Gas PEEP 5 cm H2O; Blood Gas Respiration Rate 14; Blood Gas VT 600 cc
--- NOTE | 2016-12-20 07:55 | Invasive Diagnostic Lab Proc ---
Name: Bill Hargrove Date of Study: 12/19/2016 Date: 1950 Ht: 67.0in Medical Record#: [id number] Age: 66 Wt: 160.28lb Gender: Male BSA: 1.84 Order #: [id number] BMI: 25.1 Physicians Procedure Physician: Stewart Vaca MD Referring MD: Referring MD: Staff Name Position Time In Chantelle Frank RT Scrub 03:20 PM Sheyla Jacques RN Talent Acquisition Relationship Manager 03:20 PM [facility], Mónica RT (R) Monitor 03:20 PM Indications Indication STEMI Procedures Performed Procedure L HRT ARTERY/VENTRICLE ANGIO Pre-Procedure Checklist Informed consent is complete signed and on chart. H\\T\\P is on chart. ID band is on and ID verified with patient. Patient NPO for procedure The procedure was described for the patient and questions were answered. Blood Pressure: 114/64 ECG is on chart. Rhythm: NSR Plan of Care Patient will tolerate the procedure without complications. Adequate level of comfort will be maintained. Hemodynamics will remain stable Patient will recover from procedure without complications. Respiratory function will be maintained. Cardiac rhythm will remain stable. Patient temperature will be maintained. Patient and/or family have verbalized understanding of the procedure. Patient Education Intravenous Access Time IV Size Location DC'd Fluid/Drip Rate Units RN 03:33 PM 20g 1 11/09" Patent On Arrival Lt Hand 0.9NaCl 25 ml/hr Sheyla Jacques RN Allergies Nkda No Known Allergies Vital Signs Time BP (mmHg) HR (bpm) O2 Sat. RR (bpm) LOC 03:21 PM 109 / 60 64 95 % 16 5 = Fully awake and oriented or at pre-proc level 03:21 PM / % 5 = Fully awake and oriented or at pre-proc level 03:17 PM 114 / 64 68 96 % 11 03:22 PM 85 / 59 181 96 % 18 03:22 PM 97 / 62 65 96 % 14 03:27 PM 110 / 54 62 96 % 16 03:32 PM 109 / 60 62 95 % 15 03:37 PM 108 / 91 66 92 % 23 03:42 PM 110 / 93 61 93 % 15 03:47 PM 100 / 50 65 94 % 23 03:52 PM 108 / 54 68 93 % 20 03:57 PM 100 / 83 70 93 % 15 04:02 PM 96 / 56 83 92 % 22 04:07 PM 103 / 53 69 92 % 17 Procedural Medications Time Medication Dose Units Method Given By 03:21 PM Oxygen 2 L/min nasal cannula Sheyla Jacques RN 03:34 PM Versed 1 mg Intravenous Sheyla Jacques RN 03:34 PM Fentanyl 50 mcg Intravenous Sheyla Jacques RN 03:35 PM Lidocaine 2% 2 ml Subcutaneous Stewart Vaca MD 03:36 PM Heparin 4000 units Nitroglycerin 200 mcg Verapamil 2.5 mg Intraarterial Stewart Vaca MD 03:38 PM Oxygen 4 L/min nasal cannula Sheyla Jacques RN 03:40 PM Oxygen 6 L/min nasal cannula Sheyla Jacques RN 03:45 PM Nitroglycerin 200 mcg Intracoronary stewart Vaca md 04:02 PM Nitroglycerin 5 mcg/min Intracoronary Sheyla Jacques RN ASA Classification: Emergent Procedure: ASA score is assumed Paty Score Preprocedure Postprocedure Activity 2- Moves 4 extremities sustained head lift Activity 2- Moves 4 extremities sustained head lift Circulation 2- SBP +/= 20 points of pre-anesthetic level Circulation 2- SBP +/= 20 points of pre-anesthetic level Consciousness 2- Awake and alert oriented x 3 Consciousness 2- Awake and alert oriented x 3 O2 Saturation 2- Able to maintain O2 satruation of 92% on room air O2 Saturation 2- Able to maintain O2 satruation of 92% on room air Respiratory 2- Able to deep breathe and cough well Respiratory 2- Able to deep breathe and cough well Total Score 10 Total Score 10 Contrast Agent: Isovue Diagnostic Contrast: 113 ml Total Contrast: 113 ml Fluoro Dose: 353 mGy Procedure Log Time Note Enter By 03:13 PM Pt arrived to woven label designer 2 at 15:13 tsites 03:16 PM Vitals capture started with the following parameters, Patient=Adult, Interval=5 min, Initial Gqsdadlt=429 mmHg, Deflation Rate=5 mmHg, Cuff placed on Left Leg 03:16 PM CathStat 03:17 PM HR=68 bpm, VUWI=367/64 mmhg, SpO2=96.0 %, Resp=11 B/min 03:20 PM Meet and greet completed tsites 03:20 PM Patient charges- Angio tray pack, Navilyst 3mm J, Pulse Oximetry and ACIST tubing and transducer tsites 03:20 PM Chantelle Frank RT Position: Scrub Time in: 15:20 tsites 03:20 PM Sheyla Jacques RN Position: Talent Acquisition Relationship Manager Time in: 15:20 tsites 03: PM Mónica Friedman RT (R) Position: Monitor Time in: 15:20 tsites 03:21 PM Case Delayed No tsites 03: PM Hair removed from procedure site in holding area using clippers. Bilateral groin and lt wrist prepped with Chloraprep by Valentina Johnston RN then patient draped. Skin intact. tsites 03: PM Time: 15:21 Oxygen on at 2 L/min per nasal cannula by Sheyla Jacques RN tsites 03: PM Time: 15:21 Patient comfortable and pain free: No ts: PM Time: 15:21LOC: 5 = Fully awake and oriented or at pre-proc level tsites 03:21 PM Clinical Presentation: STEMI or equivalent tsites 03:22 PM SQ=306 bpm, NIBP=85/59 mmhg, SpO2=96.0 %, Resp=18 B/min 03:22 PM NIBP STAT measurement started. 03:22 PM HR=65 bpm, NIBP=97/62 mmhg, SpO2=96 %, Resp=14 B/min 03:25 PM Pressure channel 1 zeroed. 03:27 PM no labs drawn prior to procedure tsites 03:27 PM HR=62 bpm, XRMJ=519/54 mmhg, SpO2=96.0 %, Resp=16 B/min 03:28 PM Recorded ECG: HR=66 Condition=Condition 1 03:30 PM Physician arrived 15:30 tsites 03:30 PM Procedure start 15:30 tsites 03:32 PM HR=62 bpm, TDYE=505/60 mmhg, SpO2=95.0 %, Resp=15 B/min 03:32 PM Time out performed according to hospital policy tsites 03:34 PM Time: 15:34 Versed 1 mg Intravenous Given by Sheyla Jacques RN 03:34 PM Time: 15:34 Fentanyl 50 mcg Intravenous Given by Sheyla Jacques RN tsites 03:35 PM Time: 15:35 2 ml Lidocaine 2% to left radial Subcutaneous Given by Stewart Vaca MD tsites 03:35 PM Access obtained by percutaneous puncture. 5Fr 10cm Terumo Glidesheath sheath placed in left Radial artery. [id number] tsites 03:36 PM Time: 15:36 Patient given 4,000 units Heparin, 200 mcg Nitroglycerin, and 2.5 mg Verapamil Intraarterial by Stewart Vaca MD tsites 03:36 PM Time: 15:21 Patient comfortable and pain free: Yes tsites 03:36 PM Time: 15:21LOC: 5 = Fully awake and oriented or at pre-proc level tsites 03:37 PM 5Fr FR 4 catheter inserted over the wire DN tsites 03:37 PM HR=66 bpm, TILQ=613/91 mmhg, SpO2=92 %, Resp=23 B/min 03:38 PM 0.035 260cm Navilyst 3mmJ wire [id number] tsites 03:38 PM Wire removed tsites 03:38 PM Time: 15:38 Oxygen on at 4 L/min per nasal cannula by Sheyla Jacques RN tsites 03:39 PM RCA angiography performed in multiple views. tsites 03:39 PM wire reinserted catheter removed tsites 03:40 PM 6Fr XB LAD 3.5 [place] Bright-Tip guide catheter was used to cannulate the PCI vessel successfully. reused? No tsites 03:40 PM Time: 15:40 Oxygen on at 6 L/min per nasal cannula by Sheyla Jacques RN tsites 03:41 PM wire removed intact. tsites 03:41 PM LCA angiography performed in multiple views. tsites 03:41 PM Recorded Pressure: Ao, HR=64, Condition=Condition 1 (Aorta) Ao 119/53/76 03:42 PM HR=61 bpm, LLYT=023/93 mmhg, SpO2=93 %, Resp=15 B/min 03:45 PM Time: 15:45 Nitroglycerin 200 mcg Intracoronary Given by stewart Vaca md tsites 03:46 PM 5Fr Pigtail catheter inserted over the wire DN tsites 03:46 PM Catheter selectively placed in left ventricle tsites 03:47 PM HR=65 bpm, XFIW=997/50 mmhg, SpO2=94.0 %, Resp=23 B/min 03:47 PM Recorded Pressure: LV, HR=68, Condition=Condition 1 (Left Ventricle) LV 131/20/29 03:48 PM Bolus angiogram of left Ventricle complete: 10 ml/sec for a total of 30 mls tsites 03:48 PM Recorded Pressure: LV, Ao, HR=68, Condition=Condition 1 (Left Ventricle) LV 134/24/36, (Aorta) Ao 137/65/92 03:48 PM wire reinserted catheter removed tsites 03:50 PM Procedure completed at 15:50 tsites 03:50 PM Cardiothoracic surgeon consulted by physician tsites 03:52 PM HR=68 bpm, XUSM=751/54 mmhg, SpO2=93.0 %, Resp=20 B/min 03:52 PM Sign out completed: Radiation Dose 353 mGy Fluoro Time: 3.2 Isovue 370 - 500ml contrast 113 ml given by Stewart Vaca MD. Complications: NoneCardiac Rehab Consult needed: YesConfirmed administered medications: Yes tsites 03:57 PM HR=70 bpm, VGDU=712/83 mmhg, SpO2=93 %, Resp=15 B/min 04:02 PM HR=83 bpm, NIBP=96/56 mmhg, SpO2=92 %, Resp=22 B/min 04:02 PM Time: 16:02 Nitroglycerin 5 mcg/min Intracoronary Given by Sheyla Jacques RN tsites 04:03 PM labs drawn and sent to lab pt getting ready for open heart tsites 04:07 PM HR=69 bpm, QXKB=313/53 mmhg, SpO2=92 %, Resp=17 B/min 04:[address] lopez arrived to review films tsites 04:21 PM Sheath left in place for [place] tsites 04:21 PM Post ECG NSR tsites 04:21 PM Post Blood Pressure 103/53 tsites 04:22 PM 16:21 Post Pulses Bilateral DP \\T\\ PT 2+ tsites 04:22 PM 16:22 Post Pulses Rt Radial 2+ tsites 04:22 PM Information taught Cardiac Cath tsites 04:22 PM Education needs Procedure, Plan of Care, and Responsibilities of Patient in Care tsites 04:22 PM Learning barriers :None tsites 04:22 PM Education Methods Verbal tsites 04:22 PM Education evaluation Able to repeat information tsites 04:22 PM Site status No bleeding/hematoma - lt Wrist as reported by Chantelle Frank RT at 16:22 tsites 04:24 PM Report given to lorena RAMÍREZ Pt taken to ICU Room #11. 16:24 tsites 04:24 PM Plavix, Effient or Brilinta given No tsites 04:26 PM Delay to floor No tsites 04:26 PM Patient out of room: 16:26 tsites 04:26 PM Family placed in icu waiting area for DR Lopez. tsites 04:31 PM Coronary Dominance: right tsites 04:32 PM Lesion found in LMCA. Pre Stenosis: 90 Pre DIONE Flow: tsites 04:32 PM Lesion found in Right PDA. Pre Stenosis: 100 Pre DIONE Flow: tsites 04:32 PM Lesion found in Mid Circumflex. Pre Stenosis: 75 Pre DIONE Flow: tsites 04:32 PM Left Main Coronary Artery with 90% stenosis tsites 04:33 PM Circumflex, Obtuse Marginal, Left Posterior Descending, and Left Posterolateral Coronary Arteries with 75 % stenosis. If graft is supplying this area, % stenosis tsites 04:33 PM Right Coronary, Right Posterior Descending Arteries with Right Posterolateral and Acute Marginal branches with 100 % stenosis. If graft is supplying this area, % stenosis tsites Complications Complication None Hemodynamics Pressures Site Systolic/A Wave Diastolic/V Wave Mean AO 119 53 76 LV 131 20 29 LV 134 24 36 AO 137 65 92 Post Procedure Information Blood Pressure: 103/53 mmHg Rhythm: NSR Post procedural instructions were given Surgery consult for CABG Closure Device Time Device Success/Fail 12/19/2016 4:26:00 PM Site Checks Time Location Status Staff Sheath In? Note 04:22 PM Rt Wrist No bleeding/hematoma Chantelle Frank RT Pulses Time Site Pre-Procedure Post-Procedure Note Bilateral DP \\T\\ PT 2+ Bilateral radial 2+ Rt Radial Normal plethysmography's Test 4:21:00 PM Bilateral DP \\T\\ PT 2+ 4:22:00 PM Rt Radial 2+ Updated by Mónica Friedman RT (R) on 12/20/2016 7:48:50 AM Mónica Friedman RT electronically signed on 12/20/2016 7:49:44 AM with status of Final
--- NOTE | 2016-12-20 08:16 | Cardiothoracic Progress Note ---
Date of Encounter: 12/20/16 Time of Encounter: 08:10 - Assessment and plan (1) CAD (coronary artery disease) Current Visit: Yes Status: Acute The patient is recovering well from his emergent CABG5, though he remains critically ill. He remains intubated and is slowly awakening from the anesthetic. He is not requiring inotropic support and has a systolic blood pressure between 130-140 mmHg. Nephrology has been consulted for possible dialysis. The assessment and plan as outlined above was discussed with the patient and/or family members who expressed understanding and agreement. All questions were answered. Qualifiers: Coronary Disease-Associated Artery/Lesion type: [place]na artery [place] vs. transplanted heart: iliamna heart Associated angina: with unstable angina Qualified Code(s): I25.110 - Atherosclerotic heart disease of [place] coronary artery with unstable angina pectoris (2) STEMI (ST elevation myocardial infarction) Current Visit: Yes Status: Acute The patient is a 66-year-old hypertensive man with hypercholesterolemia and peripheral arterial disease who was transferred to [facility] from the [facility] with the diagnosis of an acute STEMI. The patient underwent emergent cardiac catheterization was found to have severe 3 vessel CAD. In particular the patient had a high-grade ostial left main lesion , a 70% proximal LCx lesion 70-80% proximal OM2 lesion, and a completely occluded distal RCA which filled via [id number] collaterals. The patient was recommended for emergent CABG due to the severity of his disease and ongoing symptoms. I concur with this recommendation. The patient will be taken for CABG this evening. The assessment and plan as outlined above was discussed with the patient and/or family members who expressed understanding and agreement. All questions were answered. Qualifiers: Involved coronary artery: left main coronary artery Qualified Code(s): I21.01 - ST elevation (STEMI) myocardial infarction involving left main coronary artery - Subjective Procedure(s) Performed: POD#1 S/P CABG5 Interval history: The patient has remained hemodynamically stable overnight. He remains intubated and is slow to arouse from the anesthetic. He is not requiring any inotropic support currently. Vital Signs, Last 4 Hours Temp Pulse Resp BP Pulse Ox 12/20/16 06:16 14 120/49 97 12/20/16 06:08 72 14 121/48 97 12/20/16 05:10 97.7 F 74 14 122/52 95 Oxgyen Flow Rate Oxygen Flow Rate (LPM) 4 Clinical Data, last 8 Hours Output, Chest Tube Drainage 10 Amount [Mediastinal #2] Output, Chest Tube Drainage 20 Amount [Mediastinal #2] Output, Chest Tube Drainage 20 Amount [Mediastinal #2] Output, Chest Tube Drainage 5 Amount [Mediastinal #2] Output, Chest Tube Drainage 20 Amount [Mediastinal #2] Output, Chest Tube Drainage 10 Amount [Mediastinal #2] Output, Chest Tube Drainage 90 Amount [Mediastinal #2] Output, Chest Tube Drainage 30 Amount [Mediastinal #1] Output, Chest Tube Drainage 30 Amount [Mediastinal #1] Output, Chest Tube Drainage 20 Amount [Mediastinal #1] Output, Chest Tube Drainage 22 Amount [Mediastinal #1] Output, Chest Tube Drainage 10 Amount [Mediastinal #1] Output, Chest Tube Drainage 120 Amount [Mediastinal #1] - Physical Examination General: No Apparent Distress Neck: No JVD, Normal carotid pulses Cardiac: Reg Rate and Rhythm, Normal S1 and S2, No Murmur Incision: No signs of infection, Dry/intact dressing Sternum: Stable Chest tubes: Minimal drainage, Other (No air leak.) Pacing Wires: In place Lungs: Normal Breath Sounds, No Wheeze, Rales, Rhonchi Vascular: Normal capillary refill Extremities: No Clubbing, No Cyanosis, No Edema - Labs 12/20/16 03:00 12/20/16 04:14 Lab Results, Last 24 hours 12/19/16 12/19/16 12/19/16 21:20 21:20 22:18 WBC 18.2 H 21.8 H Hgb 9.7 L D 12.9 D Hct 28.8 L 39.0 Plt Count 92 L D 134 L INR APTT Sodium 145 D Potassium 3.1 L D Chloride 110 H Carbon Dioxide 21 BUN 38 H D Creatinine 2.54 H Glucose 142 H Calcium 6.9 L D Magnesium 12/19/16 12/19/16 12/20/16 22:18 22:18 03:00 WBC 27.6 H Hgb 13.7 Hct 41.1 Plt Count 179 INR 1.3 APTT 35.5 D Sodium 140 Potassium 5.5 H D Chloride 108 Carbon Dioxide 19 BUN 38 H Creatinine 2.81 H Glucose 123 H Calcium 8.4 L D Magnesium 2.4 12/20/16 12/20/16 03:00 04:14 WBC Hgb Hct Plt Count INR 1.2 APTT 54.5 H D Sodium 141 Potassium 3.5 D Chloride 110 H Carbon Dioxide 18 L BUN 46 H Creatinine 3.52 H Glucose 123 H Calcium 7.9 L Magnesium 2.4 - Imaging Chest Xray: image reviewed (Increased pulmonary vascularity consistent with pulmonary edema, unchanged. Small left pleural effusion.) - VTE Documentation of Mechanical Device: Graduated compression elastic hosiery Consult Discharge Plan - Plan [facility]errals: [facility]Primary Care Provider[facility] -
[2016-12-20 08:59] LABS: Bilirubin,Direct 0.1 mg/dL (0.0-0.5); Bilirubin,Indirect 0.1 mg/dL (0.0-1.2); Globulin 2.1 g/dL (2.4-3.5)
[2016-12-20 09:01] LABS: Total Protein 4.1 g/dL (6.0-8.3)
[2016-12-20 09:02] LABS: Bilirubin,Total 0.2 mg/dL (0.2-1.2)
--- NOTE | 2016-12-20 09:45 | ECHO - Doppler Report ---
Limited Echocardiogram Name: Bill Hargrove Date of Study: 12/20/2016 Date: 1950 Ht: 67.0 in Medical Record#: [id number] Age: 66 Wt: 160.0 lb Gender: Male BSA: 1.84 Order #: [id number] Location: [facility] Room #: ICU02 Reading Physician: Kin Mcdonald MD, [facility] Shipping Support: Laurent Herrera RN Ordering Physician: Jessica Lopez MD Primary Physician: [facility] Indications: Assess LV Function After Emergent CABG Impressions: Normal left ventricular size and systolic function, LVEF 60-65%. Right ventricle was not well visualized. Appears grossly normal in size and function. Valvular function was not assessed on this limited study. Left Ventricular Wall Motion: Rest Echo Findings All wall segments showed normal motion. Findings: Study Quality * Suboptimal echo windows. * Limited study to assess LV systolic function. ECG Findings * Normal sinus rhythm. Left Ventricle * Normal left ventricular size and systolic function, LVEF 60-65%. * Normal LV wall thickness. Right Ventricle * Right ventricle was not well visualized. Appears grossly normal in size and function. Pericardium * There is no pericardial effusion present. History 11/07/2016 a Previous Echo was performed. Measurements: BP: 142/ 67 2D Normal Values IVSd: 1.00 cm 0.6 - 1.0 cm LVIDd: 4.80 cm 3.7 - 5.6 cm LVPWd: 1.00 cm 0.6 - 1.1 cm LVIDs: 3.40 cm 1.5 - 3.6 cm Updated by Kin Mcdonald MD, [facility] on 12/20/2016 9:39:54 AM electronically signed on 12/20/2016 9:40:35 AM with status of Final Wall Motion Ludwig: 1=Normal, 2=Hypokinesis, 3=Akinesis, 4=Dyskinesis, 5=Aneurysmal, 6=Hyperkinetic, X=Not Visualized (Blank)=Missing
[2016-12-20 10:30] LABS: ABG PCO2 27 mmHg (35-45); ABG PH 7.35 pH Units (7.32-7.45)
[2016-12-20 10:32] LABS: ABG Base Excess -9.2 mEq/L (-2.0 to 3.0); ABG Glucose 106 mg/dL (60-95); ABG HCO3 14.9 mEQ/L (21-27); ABG Hematocrit 42 % (35-51); ABG Ionized Calcium 1.11 mmol/L (1.15-1.35); ABG Oxygen Saturation 82 % (95-98); ABG PO2 49 mmHg (85-104); ABG TCO2 15.7 mEq/L (20-26)
[2016-12-20 10:35] LABS: ABG Base Excess -5.7 mEq/L (-2.0 to 3.0); ABG Glucose 188 mg/dL (60-95); ABG HCO3 19.2 mEQ/L (21-27); ABG Hematocrit 24 % (35-51); ABG Ionized Calcium 0.88 mmol/L (1.15-1.35); ABG Oxygen Saturation 100 % (95-98); ABG PCO2 34 mmHg (35-45); ABG PH 7.36 pH Units (7.32-7.45); ABG PO2 444 mmHg (85-104); ABG TCO2 20.2 mEq/L (20-26)
[2016-12-20 10:37] LABS: VBG HCO3 22.1 mEq/L (21-27); VBG Ionized Calcium 0.92 mmol/L (1.15-1.35); VBG PH 7.3 pH Units (7.32-7.42)
[2016-12-20 10:39] LABS: ABG Base Excess -3.3 mEq/L (-2.0 to 3.0); ABG HCO3 21.1 mEQ/L (21-27); ABG Hematocrit 22 % (35-51); ABG Oxygen Saturation 100 % (95-98); ABG PCO2 34 mmHg (35-45); ABG PO2 373 mmHg (85-104); ABG TCO2 22.1 mEq/L (20-26)
[2016-12-20 10:40] LABS: ABG Glucose 187 mg/dL (60-95); ABG Ionized Calcium 0.89 mmol/L (1.15-1.35)
[2016-12-20 10:42] LABS: ABG HCO3 19.3 mEQ/L (21-27); ABG PCO2 41 mmHg (35-45); ABG PO2 63 mmHg (85-104); ABG TCO2 20.6 mEq/L (20-26)
[2016-12-20 10:43] LABS: ABG Base Excess -6.8 mEq/L (-2.0 to 3.0); ABG Glucose 124 mg/dL (60-95); ABG Hematocrit 18 % (35-51); ABG Oxygen Saturation 88 % (95-98)
[2016-12-20 10:44] LABS: ABG PH 7.28 pH Units (7.32-7.45)
[2016-12-20 10:47] LABS: ABG Base Excess -1.2 mEq/L (-2.0 to 3.0); ABG HCO3 25.2 mEQ/L (21-27); ABG Oxygen Saturation 99 % (95-98); ABG PCO2 50 mmHg (35-45); ABG PH 7.31 pH Units (7.32-7.45); ABG PO2 154 mmHg (85-104); ABG TCO2 26.7 mEq/L (20-26)
[2016-12-20 10:48] LABS: ABG Glucose 150 mg/dL (60-95); ABG Hematocrit 25 % (35-51); ABG Ionized Calcium 1.06 mmol/L (1.15-1.35)
[2016-12-20 10:50] LABS: ABG Base Excess -2.3 mEq/L (-2.0 to 3.0); ABG Glucose 151 mg/dL (60-95); ABG HCO3 24.8 mEQ/L (21-27); ABG Hematocrit 27 % (35-51); ABG Ionized Calcium 1.05 mmol/L (1.15-1.35); ABG Oxygen Saturation 99 % (95-98); ABG PCO2 54 mmHg (35-45); ABG PH 7.27 pH Units (7.32-7.45); ABG PO2 152 mmHg (85-104); ABG TCO2 26.5 mEq/L (20-26)
[2016-12-20 11:42] LABS: ABG Base Excess -5.7 mEq/L (-2.0 to 3.0); ABG HCO3 19.4 mEQ/L (21-27); ABG Oxygen Saturation 96 % (95-98); ABG PCO2 36 mmHg (35-45); ABG PH 7.34 pH Units (7.32-7.45); ABG PO2 88 mmHg (85-104); ABG TCO2 20.5 mEq/L (20-26)
[2016-12-20 11:44] LABS: Blood Gas FiO2 50 %
[2016-12-20] MEDS: Nitroglycerin 25 MG/250 ML INFUS..BTL IVC SCH ×3 (12:58→23:48)
[2016-12-20] MEDS: *HR* OxyCODONE/APAP 5/325 TABLET PO PRN ×2 (13:08→18:00)
--- NOTE | 2016-12-20 13:43 | Nephrology Consult Note ---
Date of Encounter: 12/20/16 Time of Encounter: 13:41 Assessment and Plan (1) Chronic kidney disease, stage IV (severe) Current Visit: Yes Status: Acute Patient has stage IV chronic kidney disease. He is relatively stable. He is making some urine. Chest x-ray suggests pulmonary edema. There is no acute indication for dialysis. Patient will be placed on IV Lasix to increase his urine output. We will monitor his renal function closely. If his renal function should worsen we may need to initiate dialysis at that time. (2) Benign hypertension with chronic kidney disease, stage IV Current Visit: Yes Status: Acute (3) CAD (coronary artery disease) Current Visit: Yes Status: Acute Qualifiers: Coronary Disease-Associated Artery/Lesion type: [place] artery [place] vs. transplanted heart: [place] heart Associated angina: with unstable angina Qualified Code(s): I25.110 - Atherosclerotic heart disease of [place] coronary artery with unstable angina pectoris (4) STEMI (ST elevation myocardial infarction) Current Visit: Yes Status: Acute Qualifiers: Involved coronary artery: left main coronary artery Qualified Code(s): I21.01 - ST elevation (STEMI) myocardial infarction involving left main coronary artery History of Present Illness - History of Present Illness This is a 66-year-old male who is followed as an outpatient for stage IV chronic kidney disease with a baseline GFR of 19-20. He has an AV fistula in place was never required dialysis as of yet. [facility] and not feeling well. He was noted to have an acute SC. He was subsequently transferred duodenum. Underwent cardiac catheter that showed severe three-vessel coronary artery disease including a lesion of the left main coronary artery. Patient had emergency coronary bypass surgery last evening. Postoperatively he remains intubated. He is on Cardene to help control his blood pressure. He is making some urine. Chest x-ray does suggest some pulmonary edema. Overall the patient has been hemodynamically stable. Creatinine on admission yesterday was 2.81 today 3.5 to which is essentially the same as it was back on December 15. Past Med Surg Social Fam HX - Past Medical History Medical history: COPD, coronary artery disease, hyperlipidemia, hypertension, peripheral artery disease, renal disease (Stage IV) - Past Surgical History Surgical History: appendectomy, cataract (Bilateral implants implantation.), vascular surgery (Aortobifemoral bypass.), other (Right upper extremity AV fistula formation. ) - Social History Smoking Status: Current every day smoker Packs per day: 1ppd X 56 years Smokeless Tobacco Status: No Alcohol use: rarely Drug use: none Medications and Allergies Amlodipine Besylate 10 mg PO DAILY 12/20/16 [History] Aspirin 81 mg PO DAILY 12/20/16 [History] Atorvastatin Calcium [Lipitor] 40 mg PO DAILY 12/20/16 [History] Hydralazine HCl 100 mg PO TID 12/20/16 [History] Metoprolol [Lopressor] 50 mg PO BID 12/20/16 [History] Allergies No Known Allergies Allergy (Unverified 12/19/16 15:55) Review of Systems ROS unobtainable: due to endotracheal tube Exam - Vital Signs Vital signs: Initial Vital Signs Temp Pulse Resp BP Pulse Ox 97.4 F L 68 21 105/59 94 L 12/19/16 16:36 12/19/16 16:36 12/19/16 16:36 12/19/16 16:36 12/19/16 16:36 Vital Signs - Last 8 Hours Temp Pulse Resp BP Pulse Ox 12/20/16 13:00 98.8 F 74 14 121/50 95 12/20/16 12:00 98.9 F 72 14 142/57 96 12/20/16 11:25 14 133/56 97 12/20/16 11:00 98.7 F 72 14 134/58 96 12/20/16 10:00 98.6 F 74 14 128/56 96 12/20/16 09:40 14 142/56 97 12/20/16 09:00 98.8 F 70 14 123/55 96 12/20/16 08:07 128 97 12/20/16 08:00 98.7 F 70 14 142/67 97 12/20/16 07:00 68 12/20/16 06:16 14 120/49 97 12/20/16 06:08 72 14 121/48 97 Intake and Output 12/19/16 12/20/16 12/20/16 23:59 07:59 15:59 Intake Total 471 / 471 566 / 566 Output Total 650 / 650 1357 / 1357 345 / 345 Balance -650 / -650 -886 / -886 221 / 221 Intake: IV Fluids 271 / 271 566 / 566 HumuLIN R 100 UNIT In 0. 42 / 42 16 / 16 9 % Sodium Chloride 100 ML @ 1 UNIT/HR 1.01 mls/ hr IV CONT DAGO Rx#: [id number] Amiodarone 360mg/200mL 200 / 200 Drip Premix 360 mg In 200 ml @ 0.5 MG/MIN 16.667 mls/hr IVC CONT DAGO Rx#: [id number] Cardene Premix 40mg/200ml 129 / 129 0 / 0 40 mg In 200 ml @ 1 MG/ HR 5 mls/hr IVC .Q24H DAGO Rx#:[id number] Nitroglycerin 25 mg In 250 / 250 250 ml @ 0.5 MCG/KG/MIN 21.773 mls/hr IVC . [id number] DAGO Rx#: [id number] Ancef 2,000 MG In 100 / 100 100 / 100 Dextrose 5% 100 ML @ 200 mls/hr IVPB Q8H DAGO Rx#: [id number] Intake, Autotransfusion 200 / 200 Amount Output: Estimated Blood Loss 500 / 500 Urine Amount (Catheter) 150 / 150 Catheter 950 / 950 225 / 225 Chest Tube Drainage 407 / 407 120 / 120 Mediastinal #1 232 / 232 110 / 110 Mediastinal #2 175 / 175 10 / 10 Other: Blood Glucose* 135 122 - General Appearance Exam: Patient is intubated. He will on his head in response to questions. He is on a Cardene drip for blood pressure management. [place]-Sid catheter is in place. [place] catheter is in place. Lungs managed breath sounds. Heart regular rate and rhythm with a systolic murmur and also pericardial friction rub. Abdomen is soft and nontender. There is no lower extremity swelling. There is a functioning AV fistula in the right upper extremity. Results - Lab Results 12/20/16 03:00 12/20/16 04:14 Most recent lab results ABG pH 7.34 pH Units (7.32-7.45) 12/20/16 11:35 ABG pCO2 36 mmHg (35-45) 12/20/16 11:35 ABG pO2 88 mmHg (85-104) 12/20/16 11:35 ABG HCO3 19.4 mEQ/L (21-27) L 12/20/16 11:35 ABG O2 Saturation 96 % (95-98) 12/20/16 11:35 Calcium 7.9 mg/dL (8.6-10.8) L 12/20/16 04:14 Magnesium 2.4 mg/dL (1.6-2.6) 12/20/16 04:14 Consult Discharge Plan - Plan [facility]errals: [facility] [Primary Care Provider] -
[2016-12-20] MEDS ORDERED: Furosemide 80 MG in 0.9 % Sodium Chloride 50 ML IVPB ONE (13:46)
--- NOTE | 2016-12-20 15:04 | Cardiology Progress Note ---
Date of Encounter: 12/20/16 Time of Encounter: 09:00 Assessment and Plan (1) CAD (coronary artery disease) Current Visit: Yes Status: Acute Post op-day 1 s/p CABG x 5V. He remains intubated and is slowly awakening from the anesthetic. Continue asa and statin therapy. Add bb once able. Pt transferred to surgery service. 2 week f/u with cardiology will be made once discharged. Cardiac rehab in the out-pt setting. Cardiology will sign off. Pt transferred to CT surgery service. Qualifiers: Coronary Disease-Associated Artery/Lesion type: [place] artery [place] vs. transplanted heart: [place] heart Associated angina: with unstable angina Qualified Code(s): I25.110 - Atherosclerotic heart disease of [place] coronary artery with unstable angina pectoris (2) STEMI (ST elevation myocardial infarction) Current Visit: Yes Status: Acute Pt presented from the [facility] with chest pain and found to have acute [place]. Cardiac catheterization revealed severe 3 vessel CAD. He was recommended to undergo emergent CABG d/t severe disease including ostial left main 90% stenosis. S/p [address] Lopez. TTE shows EF 60-65%. Asa, statin, and beta-gonzález recommended. Pt on amiodarone gtt d/t VT seen during surgery. One 8 beat run of VT seen in 24 hour telemetry review. F/u will be made with [facility]. Qualifiers: Involved coronary artery: left main coronary artery Qualified Code(s): I21.01 - ST elevation (STEMI) myocardial infarction involving left main coronary artery (3) Benign hypertension with chronic kidney disease, stage IV Current Visit: Yes Status: Acute B/p currently stable. Initially required NTG IV GTT. Discussion w patient/family: The assessment and plan as outlined above was discussed with the patient and/or family members who expressed understanding and agreement. All questions were answered. Thank you for involving us in the care of your patient. Please call with any questions. Subjective Principal diagnosis: STEMI Interval history: Mr. Hargrove remains intubated in the ICU. Planning for dialysis today and possible extubation afterwards. Opening eyes but not making any other purposeful movement at this time. Objective Vital Signs, Last 4 Hours Temp Pulse Resp BP Pulse Ox 12/20/16 14:00 99.2 F 71 14 121/51 95 12/20/16 13:10 15 134/54 95 12/20/16 13:00 98.8 F 74 14 121/50 95 12/20/16 12:00 98.9 F 72 14 142/57 96 12/20/16 11:25 14 133/56 97 12/20/16 11:00 98.7 F 72 14 134/58 96 General: Other (intubated and drowsy after anesthesia) HEENT: Atraumatic, Normocephaly, Mucus Membranes Moist Neck: No JVD, Normal carotid pulses Cardiac: Reg Rate and Rhythm, Normal S1 and S2, No Murmur, Other (Chest tubes intact, midstarnal dressing intact. ) Lungs: Other (On ventilator support. Lung sounds diminished) Neuro: Alert and responsive, No focal deficits noted Abdomen: Soft Skin: No rashes noted on visualized skin Musculoskeletal: No Chest Wall Tenderness Extremities: No Clubbing, No Cyanosis, No Edema, Normal Pulses Results 12/20/16 03:00 12/20/16 04:14 Lab Results 12/19/16 12/19/16 12/19/16 21:20 21:20 22:18 WBC 18.2 H 21.8 H Hgb 9.7 L D 12.9 D Hct 28.8 L 39.0 Plt Count 92 L D 134 L INR APTT Sodium 145 D Potassium 3.1 L D Chloride 110 H Carbon Dioxide 21 BUN 38 H D Creatinine 2.54 H Glucose 142 H Calcium 6.9 L D Magnesium Total Bilirubin AST ALT Alkaline Phosphatase 12/19/16 12/19/16 12/20/16 22:18 22:18 03:00 WBC 27.6 H Hgb 13.7 Hct 41.1 Plt Count 179 INR 1.3 APTT 35.5 D Sodium 140 Potassium 5.5 H D Chloride 108 Carbon Dioxide 19 BUN 38 H Creatinine 2.81 H Glucose 123 H Calcium 8.4 L D Magnesium 2.4 Total Bilirubin AST ALT Alkaline Phosphatase 12/20/16 12/20/16 12/20/16 03:00 04:14 08:35 WBC Hgb Hct Plt Count INR 1.2 APTT 54.5 H D Sodium 141 Potassium 3.5 D Chloride 110 H Carbon Dioxide 18 L BUN 46 H Creatinine 3.52 H Glucose 123 H Calcium 7.9 L Magnesium 2.4 Total Bilirubin 0.2 AST 164 H ALT 18 Alkaline Phosphatase 49 - Imaging and Cardiology Echo: report reviewed (EF 60-65%, linited study) - EKG Interpretation EKG results cardiology: personally reviewed (EKG after surgery shows sinus tachycardia with short RI interval . ST elevation is resolved.) - VTE Documentation of Mechanical Device: Graduated compression elastic hosiery Consult Discharge Plan - Plan [facility]errals: [facility] [Primary Care Provider] -
[2016-12-20] MEDS: niCARdipine 40 MG/200 ML MLS IVC SCH ×2 (17:25→19:51)
--- NOTE | 2016-12-20 18:26 | Electrocardiograph Report ---
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
--- NOTE | 2016-12-20 18:27 | Electrocardiograph Report ---
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
--- NOTE | 2016-12-20 18:33 | Electrocardiograph Report ---
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
[2016-12-20 18:34] LABS: ABG Base Excess -5.6 mEq/L (-2.0 to 3.0); ABG HCO3 20.1 mEQ/L (21-27); ABG Oxygen Saturation 94 % (95-98); ABG PCO2 39 mmHg (35-45); ABG PH 7.32 pH Units (7.32-7.45); ABG PO2 78 mmHg (85-104); ABG TCO2 21.3 mEq/L (20-26)
[2016-12-20 18:35] LABS: Blood Gas FiO2 50 %
[2016-12-20] MEDS ORDERED: 0.9 % Sodium Chloride 500 ML ONE (19:02)
[2016-12-20] MEDS: Aspirin Enteric Coated 81 MG Tablet PO SCH (19:43)
[2016-12-20] MEDS: 0.9 % Sodium Chloride 1,000 ML IVC SCH ×2 (19:43→20:05)
[2016-12-20] MEDS: Insulin Human Regular 100 UNIT in 0.9 % Sodium Chloride 100 ML IV SCH (19:52)
[2016-12-20 20:17] LABS: ABG Base Excess -3.9 mEq/L (-2.0 to 3.0); ABG HCO3 21.6 mEQ/L (21-27); ABG Oxygen Saturation 91 % (95-98); ABG PCO2 40 mmHg (35-45); ABG PO2 65 mmHg (85-104); ABG TCO2 22.8 mEq/L (20-26); Blood Gas FiO2 28 %
[2016-12-20 20:18] LABS: ABG PH 7.34 pH Units (7.32-7.45)
[2016-12-21] MEDS: *HR* Morphine 2 MG/ML SYRINGE IVP PRN ×7 (01:52→23:42)
[2016-12-21 03:15] LABS: Basophils % 0.2 %; Eosinophils % 0.1 %; Hematocrit 33.2 % (37.5-50.1); Immature Granulocytes % 0.6 % (0-4); Lymphocytes # 1.2 K/mcL (0.6-4.6); Lymphocytes % 6.9 %; Mean Corpuscular HGB Conc 33.4 g/dL (31.6-35.5); Mean Corpuscular Hemoglobin 31.6 pg (28.0-33.3); Mean Corpuscular Volume 94.6 fL (83.0-100.0); Mean Platelet Volume 10.3 fL (9.4-12.4); Monocytes # 1.7 K/mcL (0.0-1.3); Monocytes % 9.9 %; Neutrophils # 14.1 K/mcL (1.6-8.9); Platelet Count 138 K/mcL (140-400); Red Blood Count 3.51 M/mcL (4.19-5.50); Red Cell Distribution Width 14.6 % (11.5-14.5); Segmented Neutrophils % 82.3 %
[2016-12-21 03:18] LABS: Calcium 8.1 mg/dL (8.6-10.8); Potassium 4.5 mEq/L (3.5-4.5)
[2016-12-21 03:21] LABS: Hemoglobin 11.1 g/dL (12.9-16.9)
[2016-12-21] MEDS: Pantoprazole 40 MG VIAL IVP SCH (05:00)
[2016-12-21] MEDS: Metoclopramide 10 MG/2 ML VIAL IVP SCH ×4 (05:00→23:42)
--- NOTE | 2016-12-21 06:45 | Cardiothoracic Progress Note ---
Date of Encounter: 12/21/16 Time of Encounter: 06:43 - Assessment and plan (1) CAD (coronary artery disease) Current Visit: Yes Status: Acute The patient is recovering well from his emergent CABG5. He appears to have a perioperative left hemispheric CVA affecting motor function of his right upper extremity. A head CT will be performed this morning. The patient's renal function continues to deteriorate and he may require dialysis. The patient will be monitored in the ICU today. The assessment and plan as outlined above was discussed with the patient and/or family members who expressed understanding and agreement. All questions were answered. Qualifiers: Coronary Disease-Associated Artery/Lesion type: [place] artery [place] vs. transplanted heart: [place] heart Associated angina: with unstable angina Qualified Code(s): I25.110 - Atherosclerotic heart disease of [place] coronary artery with unstable angina pectoris (2) STEMI (ST elevation myocardial infarction) Current Visit: Yes Status: Acute The patient is a 66-year-old hypertensive man with hypercholesterolemia and peripheral arterial disease who was transferred to [facility] from the [facility] with the diagnosis of an acute STEMI. The patient underwent emergent cardiac catheterization was found to have severe 3 vessel CAD. In particular the patient had a high-grade ostial left main lesion , a 70% proximal LCx lesion 70-80% proximal OM2 lesion, and a completely occluded distal RCA which filled via esfe-jy-nachs collaterals. The patient was recommended for emergent CABG due to the severity of his disease and ongoing symptoms. I concur with this recommendation. The patient will be taken for CABG this evening. The assessment and plan as outlined above was discussed with the patient and/or family members who expressed understanding and agreement. All questions were answered. Qualifiers: Involved coronary artery: left main coronary artery Qualified Code(s): I21.01 - ST elevation (STEMI) myocardial infarction involving left main coronary artery - Subjective Procedure(s) Performed: POD#2 S/P CABG5 Interval history: The patient remained stable overnight. He was extubated late yesterday afternoon and is breathing comfortably. He has persistent right upper extremity paralysis, probably from a perioperative CVA. Otherwise he has no complaints. Vital Signs, Last 4 Hours Temp Pulse Resp BP Pulse Ox 12/21/16 06:00 80 12 127/47 90 L 12/21/16 05:00 80 19 138/47 92 L 12/21/16 04:35 14 92 L 12/21/16 04:00 80 14 138/52 93 L 12/21/16 03:00 98.3 F 84 16 130/56 93 L Oxgyen Flow Rate Oxygen Flow Rate (LPM) 3.5 Clinical Data, last 8 Hours Output, Chest Tube Drainage 0 Amount [Mediastinal #2] Output, Chest Tube Drainage 10 Amount [Mediastinal #2] Output, Chest Tube Drainage 10 Amount [Mediastinal #1] Output, Chest Tube Drainage 150 Amount [Mediastinal #1] - Physical Examination General: Conversant, No Apparent Distress Neck: No JVD, Normal carotid pulses Cardiac: Reg Rate and Rhythm, Normal S1 and S2, No Murmur Incision: No signs of infection, Dry/intact dressing Sternum: Stable Chest tubes: Minimal drainage, Other (No air leak.) Pacing Wires: In place Lungs: Normal Breath Sounds, No Wheeze, Rales, Rhonchi Neuro: Alert and responsive, Other (Right upper extremity is flaccid.) Vascular: Normal capillary refill Extremities: No Clubbing, No Cyanosis, No Edema - Labs 12/21/16 03:00 12/21/16 03:00 Lab Results, Last 24 hours 12/20/16 12/21/16 12/21/16 08:35 03:00 03:00 WBC 17.1 H Hgb 11.1 L D Hct 33.2 L Plt Count 138 L Sodium 139 Potassium 4.5 D Chloride 108 Carbon Dioxide 18 L BUN 49 H Creatinine 4.52 H Glucose 130 H Calcium 8.1 L Total Bilirubin 0.2 AST 164 H ALT 18 Alkaline Phosphatase 49 - Imaging Chest Xray: image reviewed (No pneumothorax. Bibasilar atelectasis/effusions.) - VTE Documentation of Mechanical Device: Graduated compression elastic hosiery Consult Discharge Plan - Plan [facility]errals: [facility] [Primary Care Provider] -
[2016-12-21] MEDS ORDERED: D5% in Water 1,000 ML IV PRN (07:12)
[2016-12-21] MEDS ORDERED: Dextrose Gel 15 GM PO PRN ×2 (07:12)
[2016-12-21] MEDS ORDERED: *HR* Dextrose 50 % in Water (Syg) 50 ML SYRINGE IVP PRN (07:12)
[2016-12-21] MEDS: Insulin LISPRO 300 UNITS/3 ML VIAL SQ SCH ×4 (07:46→21:48)
[2016-12-21] MEDS: Amiodarone Premix 360 MG/200 ML BAG IVC SCH ×3 (08:34→21:00)
[2016-12-21] MEDS: Aspirin Enteric Coated 81 MG Tablet PO SCH (08:44)
--- NOTE | 2016-12-21 09:21 | Nephrology Progress Note ---
Date of Encounter: 12/21/16 Time of Encounter: 08:20 - Assessment and Plan (1) Chronic kidney disease, stage IV (severe) Current Visit: Yes Status: Acute CATHRYN/CKD 4 s/p CABG x 5. Renal fct worsening, urine output 1870cc, no edema. HD not indicated at present, will continue to monitor. Established AVF on right. Subjective Principal diagnosis: STEMI Interval history: Remains in ICU, Alert, cooperative, extubated breathing comfortably. Nursing staff states having CT of head for presumed perioperative left CVA with persistent right upper extremity paralysis. Objective - Vital Signs Vital signs: Vital Signs Temp Pulse Resp BP Pulse Ox 12/21/16 08:25 14 92 L 12/21/16 08:00 80 14 147/52 92 L 12/21/16 07:10 98.5 F 12/21/16 07:00 98.5 F 80 14 144/52 92 L 12/21/16 06:00 80 12 127/47 90 L 12/21/16 05:00 80 19 138/47 92 L 12/21/16 04:35 14 92 L 12/21/16 04:00 80 14 138/52 93 L 12/21/16 03:00 98.3 F 84 16 130/56 93 L 12/21/16 02:00 84 16 122/49 89 L 12/21/16 01:00 90 16 133/49 92 L 12/21/16 00:08 12 92 L 12/21/16 00:00 86 12 133/48 90 L 12/20/16 23:00 98.7 F 83 16 136/48 91 L 12/20/16 21:55 83 14 135/52 91 L 12/20/16 20:57 98.7 F 87 19 129/50 91 L 12/20/16 20:56 12 91 L 12/20/16 20:04 79 16 129/53 91 L 12/20/16 19:00 98.3 F 79 14 137/51 92 L 12/20/16 18:27 13 142/62 93 L 12/20/16 18:00 98.9 F 79 12 139/58 95 12/20/16 17:21 20 138/53 93 L 12/20/16 17:09 12 94 L 12/20/16 17:00 99.2 F 76 21 146/54 93 L 12/20/16 16:00 99.2 F 71 14 131/54 96 12/20/16 15:00 99.2 F 70 14 126/53 96 12/20/16 14:00 99.2 F 71 14 121/51 95 12/20/16 13:10 15 134/54 95 12/20/16 13:00 98.8 F 74 14 121/50 95 12/20/16 12:00 98.9 F 72 14 142/57 96 12/20/16 11:25 14 133/56 97 12/20/16 11:00 98.7 F 72 14 134/58 96 12/20/16 10:00 98.6 F 74 14 128/56 96 12/20/16 09:40 14 142/56 97 Intake and Output 12/20/16 12/21/16 12/21/16 23:59 07:59 15:59 Intake Total 1567 / 1567 40 / 40 200 / 200 Output Total 876 / 876 630 / 630 Balance 691 / 691 -590 / -590 200 / 200 Intake: IV Fluids 1567 / 1567 40 / 40 200 / 200 HumuLIN R 100 UNIT In 0. 6 / 6 3 / 3 9 % Sodium Chloride 100 ML @ 1 UNIT/HR 1.01 mls/ hr IV CONT DAGO Rx#: [id number] 0.9 % Sodium Chloride 1, 1000 / 1000 000 ML @ 50 mls/hr IVC . Q20H DAGO Rx#:[id number] Amiodarone 360mg/200mL 200 / 200 200 / 200 Drip Premix 360 mg In 200 ml @ 0.5 MG/MIN 16.667 mls/hr IVC CONT DAGO Rx#: [id number] Cardene Premix 40mg/200ml 111 / 111 40 mg In 200 ml @ 1 MG/ HR 5 mls/hr IVC .Q24H DAGO Rx#:[id number] Nitroglycerin 25 mg In 250 / 250 37 / 37 250 ml @ 0.5 MCG/KG/MIN 21.773 mls/hr IVC . [id number] DAGO Rx#: [id number] Output: Catheter 650 / 650 525 / 525 Chest Tube Drainage 226 / 226 105 / 105 Mediastinal #1 200 / 200 80 / 80 Mediastinal #2 26 / 26 25 / 25 Other: Blood Glucose* 121 103 - General Appearance General appearance: Present: well-developed, well-nourished, appears started age EENT: Present: mucous membranes moist Neck: Present: no JVD Respiratory: Present: clear Cardiology: Present: no edema, regular rate, regular rhythm Dialysis Vascular Access: Arteriovenous Fistula Additional Comments: right brachiocephalic AVF , + bruit/thrill Gastrointestinal: Present: hypoactive bowel sounds, no tenderness Integumentary: Present: warm and dry Neurologic: Present: alert and oriented x3 Psychiatric: Present: mood/affect appropriate, cooperative - Lab 12/21/16 03:00 12/21/16 03:00 Most recent lab results ABG pH 7.34 pH Units (7.32-7.45) 12/20/16 20:00 ABG pCO2 40 mmHg (35-45) 12/20/16 20:00 ABG pO2 65 mmHg (85-104) L 12/20/16 20:00 ABG HCO3 21.6 mEQ/L (21-27) 12/20/16 20:00 ABG O2 Saturation 91 % (95-98) L 12/20/16 20:00 Calcium 8.1 mg/dL (8.6-10.8) L 12/21/16 03:00 Magnesium 2.4 mg/dL (1.6-2.6) 12/20/16 04:14 - VTE Documentation of Mechanical Device: Graduated compression elastic hosiery Consult Discharge Plan - Plan Referrals: [facility] [Primary Care Provider] -
--- NOTE | 2016-12-21 16:23 | Neurology - Consult Note ---
Date of Encounter: 12/21/16 Time of Encounter: 16:14 Assessment and Plan (1) Right arm weakness Current Visit: Yes Status: Acute On neurologic examination I do find right upper extremity weakness and also find a right Babinski. This leads me to believe that we have some left hemispheric dysfunction. On the circumstances I would be concerned about an acute cerebral infarct. He has been on aspirin however since surgery. His mental status is been waxing and waning this could maybe be due to medications or perhaps infarct. The CT scan of brain does not reveal evidence of an acute infarct but does reveal the old right frontal infarct is no evidence of mass effect or edema. We should implement stroke protocol orders, I would like to get a CTA of the neck and head however he has renal failure. I would also like MRI scan of the brain when stable. I will obtain an EEG tomorrow to also look for evidence of left hemispheric dysfunction. Neuro checks per protocol. Other measures to minimize the impact of an acute infarct would be to minimize hypotension, avoid glucose in IVs. Continue aspirin daily History of Present Illness HPI: Mr. Hargrove is a 66 year old male who is status post a 5 vessel coronary artery bypass graft on 12/19/2016. He is being seen for neurologic consultation secondary to somnolence and weakness of the right upper extremity. Patient presented to the [facility] on 12/19/2016 after being transferred from the [facility] for a diagnosis of anterior wall STEMI. He has been up in a chair earlier today, hoever has paucity of movement of the RUE. He Has been intermittently somnolent, but is getting morphine and percocet prn. He will arouse and answers some questions, but not all. CT scan of the head is negative for acute infarct, or hemorrhage. It does show and old right frontal infarct.Weakness was initially noticed last night after extubation. Past Med Surg Social Fam HX - Past Medical History Medical history: COPD, coronary artery disease, hyperlipidemia, hypertension, peripheral artery disease, renal disease (Stage IV) - Past Surgical History Surgical History: appendectomy, cataract (Bilateral implants implantation.), vascular surgery (Aortobifemoral bypass.), other (Right upper extremity AV fistula formation. ) - Social History Smoking Status: Current every day smoker Packs per day: 1ppd X 56 years Smokeless Tobacco Status: No Alcohol use: rarely Drug use: none Medications and Allergies Amlodipine Besylate 10 mg PO DAILY 12/20/16 [History] Aspirin 81 mg PO DAILY 12/20/16 [History] Atorvastatin Calcium [Lipitor] 40 mg PO DAILY 12/20/16 [History] Hydralazine HCl 100 mg PO TID 12/20/16 [History] Metoprolol [Lopressor] 50 mg PO BID 12/20/16 [History] Allergies No Known Allergies Allergy (Unverified 12/19/16 15:55) ROS unobtainable: due to mental status All Systems: A 10-system review of systems was performed and is negative for pertinent findings except as documented above in the HPI. Physical Examination - Vital Signs Vital Signs: Initial Vital Signs Temp Pulse Resp BP Pulse Ox 97.4 F L 68 21 105/59 94 L 12/19/16 16:36 12/19/16 16:36 12/19/16 16:36 12/19/16 16:36 12/19/16 16:36 - Exam Exam: Neurologic examination was performed and finds the following: For cerebral functions he is somnolent. He will open his eyes momentarily and will answer a few questions. He follows some simple commands such as wiggling the toes. He seems to have a right kenisha-neglect however. He notices the examiner better when approaching from his left. He does make eye contact. He is somnolent and will drift back off to unconsciousness if not persistently stimulated. Pupils are equal and reactive to light, he does have a right hemianopsia. I did not identify facial droop however speech is dysarthric. Motor exam-good tone of the left upper extremity he has normal tone of both lower extremities. He does wiggle the toes on command. He has positive movement of the right upper extremity. Deep tendon reflexes 2+ symmetrically at the biceps triceps and brachioradialis. Patellar reflexes are 2+ symmetrically. He does have a right Babinski, he seems to withdraw on the left. Results - Laboratory Findings CBC and BMP: 12/21/16 03:00 12/21/16 03:00 Abnormal lab findings: Abnormal lab results WBC 17.1 K/mcL (4.3-11.1) H 12/21/16 03:00 RBC 3.51 M/mcL (4.19-5.50) L 12/21/16 03:00 Hgb 11.1 g/dL (12.9-16.9) L D 12/21/16 03:00 Hct 33.2 % (37.5-50.1) L 12/21/16 03:00 RDW 14.6 % (11.5-14.5) H 12/21/16 03:00 Plt Count 138 K/mcL (140-400) L 12/21/16 03:00 Band Neutrophils % 50.0 % (0-4) H 12/20/16 03:00 Metamyelocytes % 2.0 % (0) H 12/20/16 03:00 Neutrophils # 14.1 K/mcL (1.6-8.9) H 12/21/16 03:00 Monocytes # 1.7 K/mcL (0.0-1.3) H 12/21/16 03:00 Reactive Lymphocytes Present (Not Present) A 12/20/16 03:00 Toxic Granulation Present (Not Present) A 12/20/16 03:00 Toxic Vacuolation Present (Not Present) A 12/20/16 03:00 PT 12.9 Seconds (9.4-12.1) H 12/20/16 03:00 APTT 54.5 Seconds (26.0-36.0) H D 12/20/16 03:00 Heparin Anti-Xa, Unfract 0.72 IU/mL (0.30-0.70) H 12/19/16 16:02 ABG pO2 65 mmHg (85-104) L 12/20/16 20:00 ABG O2 Saturation 91 % (95-98) L 12/20/16 20:00 ABG Base Excess -3.9 mEq/L (-2.0 to 3.0) L 12/20/16 20:00 ABG Hematocrit 27 % (35-51) L 12/19/16 20:50 VBG pH 7.30 pH Units (7.32-7.42) L 12/19/16 19:12 VBG pO2 43 mmHg (25-40) H 12/19/16 19:12 VBG Hematocrit 24 % (38-54) L 12/19/16 19:12 VBG Ionized Calcium 0.92 mmol/L (1.15-1.35) L 12/19/16 19:12 Potassium 3.2 mEq/L (3.5-5.3) L 12/19/16 20:50 Glucose 151 mg/dL (60-95) H 12/19/16 20:50 Ionized Calcium 1.05 mmol/L (1.15-1.35) L 12/19/16 20:50 Carbon Dioxide 18 mEq/L (19-29) L 12/21/16 03:00 BUN 49 mg/dL (8-26) H 12/21/16 03:00 Creatinine 4.52 mg/dL (0.72-1.25) H 12/21/16 03:00 Est GFR ( Amer) 16 (> 60) L 12/21/16 03:00 Est GFR (Non-Af Amer) 13 (> 60) L 12/21/16 03:00 Glucose 130 mg/dL (70-99) H 12/21/16 03:00 POC Glucose 156 (58-89) H 12/21/16 11:43 Calculated Osmolality 303 (280-300) H 12/21/16 03:00 Calcium 8.1 mg/dL (8.6-10.8) L 12/21/16 03:00 AST 164 Units/L (5-34) H 12/20/16 08:35 Serum Total Protein 4.1 g/dL (6.0-8.3) L D 12/20/16 08:35 Albumin 2.0 g/dL (3.5-5.0) L D 12/20/16 08:35 Globulin 2.1 g/dL (2.4-3.5) L 12/20/16 08:35 Albumin/Globulin Ratio 1.0 (1.1-2.2) L 12/20/16 08:35 Consult Discharge Plan - Plan [facility]errals: [facility] [Primary Care Provider] -
[2016-12-21] MEDS: 0.9 % Sodium Chloride 1,000 ML IVC SCH (18:26)
[2016-12-21] MEDS: Nitroglycerin 25 MG/250 ML INFUS..BTL IVC SCH ×2 (20:59→21:05)
[2016-12-21] MEDS: EPINEPHrine 1 MG in D5% in Water 250 ML IVC SCH (21:00)
[2016-12-21] MEDS: niCARdipine 40 MG/200 ML MLS IVC SCH (21:48)
[2016-12-22] MEDS: *HR* Morphine 2 MG/ML SYRINGE IVP PRN ×3 (02:00→05:42)
[2016-12-22 05:20] LABS: Hematocrit 33.5 % (37.5-50.1); Hemoglobin 10.6 g/dL (12.9-16.9); Mean Corpuscular HGB Conc 31.6 g/dL (31.6-35.5); Mean Corpuscular Hemoglobin 31.6 pg (28.0-33.3); Mean Platelet Volume 10.7 fL (9.4-12.4); Platelet Count 126 K/mcL (140-400); Red Blood Count 3.35 M/mcL (4.19-5.50); Red Cell Distribution Width 14.8 % (11.5-14.5)
[2016-12-22] MEDS: Pantoprazole 40 MG VIAL IVP SCH (05:42)
[2016-12-22] MEDS: Metoclopramide 10 MG/2 ML VIAL IVP SCH ×4 (05:42→23:53)
[2016-12-22 05:44] LABS: Calcium 8.6 mg/dL (8.6-10.8); Potassium 4.9 mEq/L (3.5-4.5)
[2016-12-22] MEDS: Amiodarone Premix 360 MG/200 ML BAG IVC SCH ×3 (05:57→18:53)
--- NOTE | 2016-12-22 06:35 | Cardiothoracic Progress Note ---
Date of Encounter: 12/22/16 Time of Encounter: 06:33 - Assessment and plan (1) CAD (coronary artery disease) Current Visit: Yes Status: Acute The patient is recovering well from his emergent CABG5. He appears to have a perioperative left hemispheric CVA affecting motor function of his right upper extremity. A head CT performed yesterday showed no evidence of left hemispheric CVA; however, the patient's physical symptoms indicate that he may have had a left hemispheric CVA. Speech therapy will be consulted today for a swallow evaluation. The patient's renal function continues to deteriorate and he may require dialysis. The patient will be monitored in the ICU today. The assessment and plan as outlined above was discussed with the patient and/or family members who expressed understanding and agreement. All questions were answered. Qualifiers: Coronary Disease-Associated Artery/Lesion type: [place] artery [place] vs. transplanted heart: [place] heart Associated angina: with unstable angina Qualified Code(s): I25.110 - Atherosclerotic heart disease of [place] coronary artery with unstable angina pectoris (2) STEMI (ST elevation myocardial infarction) Current Visit: Yes Status: Acute The patient is a 66-year-old hypertensive man with hypercholesterolemia and peripheral arterial disease who was transferred to [facility] from the [facility] with the diagnosis of an acute STEMI. The patient underwent emergent cardiac catheterization was found to have severe 3 vessel CAD. In particular the patient had a high-grade ostial left main lesion , a 70% proximal LCx lesion 70-80% proximal OM2 lesion, and a completely occluded distal RCA which filled via [id number]-ha-omgro collaterals. The patient was recommended for emergent CABG due to the severity of his disease and ongoing symptoms. I concur with this recommendation. The patient will be taken for CABG this evening. The assessment and plan as outlined above was discussed with the patient and/or family members who expressed understanding and agreement. All questions were answered. Qualifiers: Involved coronary artery: left main coronary artery Qualified Code(s): I21.01 - ST elevation (STEMI) myocardial infarction involving left main coronary artery - Subjective Procedure(s) Performed: POD#3 S/P CABG5 Interval history: The patient remained stable overnight. He is breathing comfortably. He has persistent right upper extremity paralysis, probably from a perioperative CVA. Otherwise he has no complaints. Vital Signs, Last 4 Hours Temp Pulse Resp BP Pulse Ox 12/22/16 06:00 71 9 135/57 92 L 12/22/16 05:00 73 12 149/62 91 L 12/22/16 04:15 98.5 F 12/22/16 04:00 98.5 F 69 9 132/59 93 L 12/22/16 03:34 17 91 L 12/22/16 03:00 72 9 140/61 94 L Oxgyen Flow Rate Oxygen Flow Rate (LPM) 5 Clinical Data, last 8 Hours Output, Chest Tube Drainage 30 Amount [Mediastinal #1] Output, Chest Tube Drainage 50 Amount [Mediastinal #1] Weight 12/20/16 12/21/16 12/22/16 23:59 23:59 23:59 Weight 77.9 kg - Physical Examination General: Conversant (Speech is spontaneous and appropriate; however, needs to be coaxed.), No Apparent Distress Neck: No JVD, Normal carotid pulses Cardiac: Reg Rate and Rhythm, Normal S1 and S2, No Murmur Incision: No signs of infection, Dry/intact dressing Sternum: Stable Chest tubes: Minimal drainage, Other (No air leak.) Lungs: Normal Breath Sounds, No Wheeze, Rales, Rhonchi Neuro: Alert and responsive, Other (Right upper extremity paralysis.) Vascular: Normal capillary refill Musculoskeletal: No Chest Wall Tenderness Extremities: No Clubbing, No Cyanosis, No Edema - Labs 12/22/16 05:06 12/22/16 05:06 Lab Results, Last 24 hours 12/22/16 12/22/16 05:06 05:06 WBC 13.4 H Hgb 10.6 L Hct 33.5 L Plt Count 126 L Sodium 141 Potassium 4.9 H Chloride 110 H Carbon Dioxide 18 L BUN 60 H Creatinine 5.23 H Glucose 114 H Calcium 8.6 - Imaging Chest Xray: image reviewed (No pneumothorax. Mild edema. Bibasilar atelectasis.) - VTE Documentation of Mechanical Device: Graduated compression elastic hosiery Consult Discharge Plan - Plan [facility]errals: [facility] [Primary Care Provider] -
[2016-12-22] MEDS: Nitroglycerin 25 MG/250 ML INFUS..BTL IVC SCH ×2 (09:19→20:22)
[2016-12-22] MEDS: Insulin LISPRO 300 UNITS/3 ML VIAL SQ SCH ×4 (09:19→20:24)
[2016-12-22] MEDS: Aspirin Enteric Coated 81 MG Tablet PO SCH (09:20)
[2016-12-22] MEDS ORDERED: 0.9 % Sodium Chloride 250 ML IV PRN (09:28)
[2016-12-22] MEDS ORDERED: 0.9 % Sodium Chloride 1,000 ML PRIME SCH (09:30)
--- NOTE | 2016-12-22 09:31 | Nephrology Progress Note ---
Date of Encounter: 12/22/16 Time of Encounter: 09:10 - Assessment and Plan (1) Chronic kidney disease, stage IV (severe) Current Visit: Yes Status: Acute CATHRYN/CKD 4 s/p CABG x 5. Renal fct worsening, urine output 925cc, no edema. Will initiate HD today utilizing established right brachiocephlic AVF. HD orders given. Subjective Principal diagnosis: STEMI Interval history: Remains in ICU, Alert, cooperative,answers questions with short answers, appropriate. Persistent right upper extremity paralysis. Objective - Vital Signs Vital signs: Vital Signs Temp Pulse Resp BP Pulse Ox 12/22/16 09:00 71 14 140/62 92 L 12/22/16 08:34 9 92 L 12/22/16 08:00 71 12/22/16 07:41 98.3 F 12/22/16 06:00 71 9 135/57 92 L 12/22/16 05:00 73 12 149/62 91 L 12/22/16 04:15 98.5 F 12/22/16 04:00 98.5 F 69 9 132/59 93 L 12/22/16 03:34 17 91 L 12/22/16 03:00 72 9 140/61 94 L 12/22/16 02:00 68 12 151/69 93 L 12/22/16 01:00 70 10 139/67 93 L 12/22/16 00:13 98.5 F 12/22/16 00:00 98.5 F 70 10 136/60 91 L 12/21/16 23:22 18 93 L 12/21/16 23:00 71 22 137/71 91 L 12/21/16 22:00 70 9 116/49 89 L 12/21/16 21:31 99.9 F H 12/21/16 21:00 72 12 125/63 92 L 12/21/16 20:00 99.9 F H 75 12 114/76 91 L 12/21/16 19:34 15 91 L 12/21/16 19:00 74 10 103/72 92 L 12/21/16 18:00 75 16 134/56 92 L 12/21/16 17:00 75 14 148/46 94 L 12/21/16 16:44 14 94 L 12/21/16 16:00 98.9 F 75 12 143/48 92 L 12/21/16 15:00 76 14 145/45 92 L 12/21/16 14:00 76 14 125/47 92 L 12/21/16 13:00 74 16 147/48 92 L 12/21/16 12:00 76 16 142/49 92 L 12/21/16 11:35 98.9 F 12/21/16 11:23 16 92 L 12/21/16 11:00 76 12/21/16 10:00 75 16 130/48 92 L Intake and Output 12/21/16 12/22/16 12/22/16 23:59 07:59 15:59 Intake Total 1403 / 1403 200 / 200 Output Total 170 / 170 405 / 405 Balance 1233 / 1233 -205 / -205 Intake: IV Fluids 1403 / 1403 200 / 200 0.9 % Sodium Chloride 1, 1000 / 1000 000 ML @ 50 mls/hr IVC . Q20H DAGO Rx#:[id number] Amiodarone 360mg/200mL 200 / 200 200 / 200 Drip Premix 360 mg In 200 ml @ 0.5 MG/MIN 16.667 mls/hr IVC CONT DAGO Rx#: [id number] Nitroglycerin 25 mg In 203 / 203 0 / 0 250 ml @ 0.5 MCG/KG/MIN 21.773 mls/hr IVC . [id number] DAGO Rx#: [id number] Output: Catheter 150 / 150 325 / 325 Chest Tube Drainage 80 / 80 Mediastinal #1 20 / 80 / 80 Other: Weight 77.9 kg Blood Glucose* 122 Patient Weight 12/22/16 23:59 Weight 77.9 kg - General Appearance General appearance: Present: well-developed, well-nourished, appears started age EENT: Present: mucous membranes moist Neck: Present: no JVD Respiratory: Present: clear Cardiology: Present: no edema, regular rate, regular rhythm Additional Comments: pericardial friction rub Gastrointestinal: Present: normoactive bowel sounds, no tenderness Integumentary: Present: warm and dry Psychiatric: Present: mood/affect appropriate, cooperative - Lab 12/22/16 05:06 12/22/16 05:06 Most recent lab results ABG pH 7.34 pH Units (7.32-7.45) 12/20/16 20:00 ABG pCO2 40 mmHg (35-45) 12/20/16 20:00 ABG pO2 65 mmHg (85-104) L 12/20/16 20:00 ABG HCO3 21.6 mEQ/L (21-27) 12/20/16 20:00 ABG O2 Saturation 91 % (95-98) L 12/20/16 20:00 Calcium 8.6 mg/dL (8.6-10.8) 12/22/16 05:06 Magnesium 2.4 mg/dL (1.6-2.6) 12/20/16 04:14 - VTE Documentation of Mechanical Device: Graduated compression elastic hosiery Consult Discharge Plan - Plan [facility]errals: [facility] [Primary Care Provider] -
[2016-12-22] MEDS: Aspirin 81 MG TAB.CHEW PO SCH (09:54)
[2016-12-22] MEDS: *HR* OxyCODONE/APAP 5/325 TABLET PO PRN ×3 (09:54→23:58)
[2016-12-22] MEDS: Docusate Oral Soln 100 MG/10 ML UDC PO SCH ×2 (09:54→20:31)
[2016-12-22] MEDS: 0.9 % Sodium Chloride 1,000 ML IVC SCH ×2 (10:50→17:40)
[2016-12-22] MEDS: *HR* Heparin 5,000 UNIT/ML VIAL SQ SCH ×2 (11:17→20:31)
--- NOTE | 2016-12-22 17:38 | Neurology Progress Note ---
Date of Encounter: 12/22/16 Time of Encounter: 17:34 Assessment and Plan (1) Right arm weakness Current Visit: Yes Status: Acute Under the circumstances I am highly suspicious of a left hemispheric cerebral infarct. He has right homonymous hemianopsia along with right upper extremity flaccid weakness as well as weakness of the right lower extremity although not as profound. He is receiving aspirin 81 mg daily. I will obtain a CT scan of the brain tomorrow, as he is not a candidate for MRI as of yet. I would also like to obtain a carotid Doppler study. Stroke protocol orders to be implemented. I recommend removing the dextrose from the IV solutions as it may be detrimental to acutely infarcted brain matter. Critical care time spent with this patient today was 40 minutes and consisted of chart review reviewing labs, discussing case with nursing, coordinating care and examining the patient. The documentation in the history of HPI and plan were at least partially created by [employer] recognition technology by Dr. Wolfe. Errors in grammar, wording or other phrases may exist. If errors are found after the documentation signed, they will be addressed individually in the addendum section of this document when appropriate. Subjective Principal diagnosis: Left cerebral hemispheric dysfunction Interval history: The chart was reviewed, case was discussed with nursing, patient was seen and examined. He is much more alert today however still somewhat confused. He is verbal, to some extent however not completely conversant. He has a clearly identifiable right homonymous hemianopsia. His right upper extremity is weak and flaccid. He has decreased tone of the right lower extremity however it is not flaccid and he can move it. He has normal movement of the left upper and left lower extremities. Objective - Constitutional Vitals: Temp Pulse Resp BP Pulse Ox 99.0 F 65 16 140/59 65 L 12/22/16 15:47 12/22/16 15:00 12/22/16 16:37 12/22/16 15:00 12/22/16 16:37 - Neurological Exam Additional comments: Neurologic examination today finds right homonymous hemianopsia flaccid paralysis of the right upper extremity, weakness of the right lower extremity however he maintains some ability to move the right leg. He has full movement of the left upper and left lower extremities. He is able to talk, however he is somewhat confused and not fully conversant. He follows some commands but not all, he answers some questions but not all. Overall however his neuro status is improved today as he is more conscious sitting up in bed and alert. - VTE Documentation of Mechanical Device: Graduated compression elastic hosiery Results - Laboratory Findings CBC and BMP: 12/22/16 05:06 12/22/16 05:06 Abnormal lab findings: Abnormal lab results WBC 13.4 K/mcL (4.3-11.1) H 12/22/16 05:06 RBC 3.35 M/mcL (4.19-5.50) L 12/22/16 05:06 Hgb 10.6 g/dL (12.9-16.9) L 12/22/16 05:06 Hct 33.5 % (37.5-50.1) L 12/22/16 05:06 RDW 14.8 % (11.5-14.5) H 12/22/16 05:06 Plt Count 126 K/mcL (140-400) L 12/22/16 05:06 Band Neutrophils % 50.0 % (0-4) H 12/20/16 03:00 Metamyelocytes % 2.0 % (0) H 12/20/16 03:00 Neutrophils # 14.1 K/mcL (1.6-8.9) H 12/21/16 03:00 Monocytes # 1.7 K/mcL (0.0-1.3) H 12/21/16 03:00 Reactive Lymphocytes Present (Not Present) A 12/20/16 03:00 Toxic Granulation Present (Not Present) A 12/20/16 03:00 Toxic Vacuolation Present (Not Present) A 12/20/16 03:00 PT 12.9 Seconds (9.4-12.1) H 12/20/16 03:00 APTT 54.5 Seconds (26.0-36.0) H D 12/20/16 03:00 Heparin Anti-Xa, Unfract 0.72 IU/mL (0.30-0.70) H 12/19/16 16:02 ABG pO2 65 mmHg (85-104) L 12/20/16 20:00 ABG O2 Saturation 91 % (95-98) L 12/20/16 20:00 ABG Base Excess -3.9 mEq/L (-2.0 to 3.0) L 12/20/16 20:00 ABG Hematocrit 27 % (35-51) L 12/19/16 20:50 VBG pH 7.30 pH Units (7.32-7.42) L 12/19/16 19:12 VBG pO2 43 mmHg (25-40) H 12/19/16 19:12 VBG Hematocrit 24 % (38-54) L 12/19/16 19:12 VBG Ionized Calcium 0.92 mmol/L (1.15-1.35) L 12/19/16 19:12 Potassium 3.2 mEq/L (3.5-5.3) L 12/19/16 20:50 Glucose 151 mg/dL (60-95) H 12/19/16 20:50 Ionized Calcium 1.05 mmol/L (1.15-1.35) L 12/19/16 20:50 Potassium 4.9 mEq/L (3.5-4.5) H 12/22/16 05:06 Chloride 110 mEq/L (98-109) H 12/22/16 05:06 Carbon Dioxide 18 mEq/L (19-29) L 12/22/16 05:06 BUN 60 mg/dL (8-26) H 12/22/16 05:06 Creatinine 5.23 mg/dL (0.72-1.25) H 12/22/16 05:06 Est GFR ( Amer) 13 (> 60) L 12/22/16 05:06 Est GFR (Non-Af Amer) 11 (> 60) L 12/22/16 05:06 Glucose 114 mg/dL (70-99) H 12/22/16 05:06 POC Glucose 125 (58-89) H 12/22/16 15:12 Calculated Osmolality 310 (280-300) H 12/22/16 05:06 AST 164 Units/L (5-34) H 12/20/16 08:35 Serum Total Protein 4.1 g/dL (6.0-8.3) L D 12/20/16 08:35 Albumin 2.0 g/dL (3.5-5.0) L D 12/20/16 08:35 Globulin 2.1 g/dL (2.4-3.5) L 12/20/16 08:35 Albumin/Globulin Ratio 1.0 (1.1-2.2) L 12/20/16 08:35 Consult Discharge Plan - Plan [facility]errals: [facility] [Primary Care Provider] -
[2016-12-22 17:41] LABS: Hepatitis B Surface Antigen Nonreactive (Nonreactive)
[2016-12-22] MEDS: niCARdipine 40 MG/200 ML MLS IVC SCH (20:23)
[2016-12-23 03:43] LABS: Hematocrit 26.5 % (37.5-50.1); Mean Corpuscular HGB Conc 31.7 g/dL (31.6-35.5); Mean Corpuscular Hemoglobin 31.1 pg (28.0-33.3); Mean Corpuscular Volume 98.1 fL (83.0-100.0); Mean Platelet Volume 10.7 fL (9.4-12.4); Platelet Count 125 K/mcL (140-400); Red Cell Distribution Width 14.7 % (11.5-14.5)
[2016-12-23 03:55] LABS: Calcium 8.1 mg/dL (8.6-10.8); Potassium 4.3 mEq/L (3.5-4.5)
[2016-12-23] MEDS: Nitroglycerin 25 MG/250 ML INFUS..BTL IVC SCH (03:57)
[2016-12-23] MEDS: Amiodarone Premix 360 MG/200 ML BAG IVC SCH ×3 (03:58→16:47)
[2016-12-23 04:48] LABS: Hemoglobin 8.4 g/dL (12.9-16.9)
[2016-12-23] MEDS: 0.9 % Sodium Chloride 1,000 ML IVC SCH ×2 (05:29→16:48)
[2016-12-23] MEDS: Pantoprazole 40 MG VIAL IVP SCH (05:32)
--- NOTE | 2016-12-23 06:57 | Cardiothoracic Progress Note ---
Date of Encounter: 12/23/16 Time of Encounter: 06:53 - Assessment and plan (1) CAD (coronary artery disease) Current Visit: Yes Status: Acute The patient is recovering well from his emergent CABG5. The patient was removed so that the patient may have an MRI today. Dialysis was attempted yesterday, however the fistula did not function well. Another attempt at dialysis will be performed today. He will be monitored in the ICU. The assessment and plan as outlined above was discussed with the patient and/or family members who expressed understanding and agreement. All questions were answered. Qualifiers: Coronary Disease-Associated Artery/Lesion type: [place] artery [place] vs. transplanted heart: [place] heart Associated angina: with unstable angina Qualified Code(s): I25.110 - Atherosclerotic heart disease of [place] coronary artery with unstable angina pectoris (2) STEMI (ST elevation myocardial infarction) Current Visit: Yes Status: Acute The patient is a 66-year-old hypertensive man with hypercholesterolemia and peripheral arterial disease who was transferred to [facility] from the [facility] with the diagnosis of an acute STEMI. The patient underwent emergent cardiac catheterization was found to have severe 3 vessel CAD. In particular the patient had a high-grade ostial left main lesion , a 70% proximal LCx lesion 70-80% proximal OM2 lesion, and a completely occluded distal RCA which filled via [id number] collaterals. The patient was recommended for emergent CABG due to the severity of his disease and ongoing symptoms. I concur with this recommendation. The patient will be taken for CABG this evening. The assessment and plan as outlined above was discussed with the patient and/or family members who expressed understanding and agreement. All questions were answered. Qualifiers: Involved coronary artery: left main coronary artery Qualified Code(s): I21.01 - ST elevation (STEMI) myocardial infarction involving left main coronary artery - Subjective Procedure(s) Performed: POD#4 S/P CABG5 Interval history: The patient remained stable overnight. He is breathing comfortably. He has persistent right upper extremity paralysis, probably from a perioperative CVA. Otherwise he has no complaints. Vital Signs, Last 4 Hours Temp Pulse Resp BP Pulse Ox 12/23/16 06:00 62 12 134/60 96 12/23/16 05:00 65 16 136/57 95 12/23/16 04:07 17 94 L 12/23/16 04:00 99.1 F 65 16 129/60 94 L 12/23/16 03:00 68 18 126/54 92 L Oxgyen Flow Rate Oxygen Flow Rate (LPM) 5 Clinical Data, last 8 Hours Output, Chest Tube Drainage 0 Amount [Mediastinal #2] Output, Chest Tube Drainage 0 Amount [Mediastinal #2] Output, Chest Tube Drainage 0 Amount [Mediastinal #2] Output, Chest Tube Drainage 20 Amount [Mediastinal #1] Output, Chest Tube Drainage 0 Amount [Mediastinal #1] Output, Chest Tube Drainage 0 Amount [Mediastinal #1] Weight 12/21/16 12/22/16 12/23/16 23:59 23:59 23:59 Weight 77.9 kg 78.426 kg - Physical Examination General: Conversant, No Apparent Distress Neck: No JVD, Normal carotid pulses Cardiac: Reg Rate and Rhythm, Normal S1 and S2, No Murmur Incision: No signs of infection, Dry/intact dressing Sternum: Stable Chest tubes: Minimal drainage, Other (No air leak.) Pacing Wires: In place Lungs: Normal Breath Sounds, No Wheeze, Rales, Rhonchi Neuro: Alert and responsive, Other (Right upper extremity flaccid.) Vascular: Normal capillary refill Musculoskeletal: No Chest Wall Tenderness Extremities: No Clubbing, No Cyanosis, No Edema - Labs 12/23/16 03:35 12/23/16 03:35 Lab Results, Last 24 hours 12/23/16 12/23/16 03:35 03:35 WBC 10.3 Hgb 8.4 L D Hct 26.5 L Plt Count 125 L Sodium 143 Potassium 4.3 Chloride 112 H Carbon Dioxide 16 L BUN 69 H Creatinine 5.38 H Glucose 121 H Calcium 8.1 L - Imaging Chest Xray: image reviewed (No pneumothorax. Increased right basilar atelectasis.) - VTE Documentation of Mechanical Device: Graduated compression elastic hosiery Consult Discharge Plan - Plan Referrals: [facility] [Primary Care Provider] -
[2016-12-23] MEDS ORDERED: 0.9 % Sodium Chloride 4,000 ML ONE (08:11)
[2016-12-23] MEDS: Aspirin 81 MG TAB.CHEW PO SCH (08:35)
[2016-12-23] MEDS: *HR* Heparin 5,000 UNIT/ML VIAL SQ SCH ×2 (08:41→19:54)
[2016-12-23] MEDS: Insulin LISPRO 300 UNITS/3 ML VIAL SQ SCH ×4 (08:41→19:55)
[2016-12-23] MEDS: Docusate Oral Soln 100 MG/10 ML UDC PO SCH ×2 (09:34→19:54)
--- NOTE | 2016-12-23 10:30 | Nephrology Progress Note ---
Date of Encounter: 12/23/16 Time of Encounter: 10:28 - Assessment and Plan (1) Chronic kidney disease, stage IV (severe) Current Visit: Yes Status: Acute Patient has acute kidney injury superimposed on chronic kidney disease following emergent CABG. Patient will undergo dialysis today. We will try to use his fistula today. Volume removal as tolerated. (2) Benign hypertension with chronic kidney disease, stage IV Current Visit: Yes Status: Acute (3) CAD (coronary artery disease) Current Visit: Yes Status: Acute Qualifiers: Coronary Disease-Associated Artery/Lesion type: [place] artery [place] vs. transplanted heart: [place] heart Associated angina: with unstable angina Qualified Code(s): I25.110 - Atherosclerotic heart disease of [place] coronary artery with unstable angina pectoris (4) STEMI (ST elevation myocardial infarction) Current Visit: Yes Status: Acute Qualifiers: Involved coronary artery: left main coronary artery Qualified Code(s): I21.01 - ST elevation (STEMI) myocardial infarction involving left main coronary artery Subjective Principal diagnosis: Left cerebral hemispheric dysfunction Interval history: Patient is complaining of some pain otherwise he says he is doing well. He is having a little bit of shortness of breath. He did not have successful dialysis yesterday because they had issues with his AV fistula. Renal function is worse. He will undergo dialysis today. Objective - Vital Signs Vital signs: Vital Signs Temp Pulse Resp BP Pulse Ox 12/23/16 09:00 68 12 144/69 96 12/23/16 08:32 12 96 12/23/16 08:04 62 12 138/58 96 12/23/16 07:41 98.5 F 12/23/16 06:00 62 12 134/60 96 12/23/16 05:00 65 16 136/57 95 12/23/16 04:07 17 94 L 12/23/16 04:00 99.1 F 65 16 129/60 94 L 12/23/16 03:00 68 18 126/54 92 L 12/23/16 02:00 63 12 120/51 95 12/23/16 01:00 66 14 119/54 96 12/23/16 00:17 98.8 F 12/23/16 00:00 65 12 126/56 93 L 12/22/16 23:31 15 94 L 12/22/16 23:00 67 16 131/53 94 L 12/22/16 22:00 66 12 124/59 94 L 12/22/16 21:00 66 12 131/57 97 12/22/16 20:39 98.7 F 12/22/16 20:00 68 14 139/61 95 12/22/16 19:18 17 95 12/22/16 19:00 68 16 135/59 94 L 12/22/16 18:00 67 18 123/53 94 L 12/22/16 17:00 68 17 138/58 93 L 12/22/16 16:37 16 65 L 12/22/16 16:00 98.1 F 63 16 165/81 95 12/22/16 15:47 99.0 F 12/22/16 15:45 98.1 F 22 163/72 12/22/16 15:00 65 16 140/59 65 L 12/22/16 14:00 68 17 142/61 68 L 12/22/16 13:00 66 18 119/72 68 L 12/22/16 12:16 99.6 F 12/22/16 11:00 67 17 137/88 93 L Intake and Output 12/22/16 12/23/16 12/23/16 23:59 07:59 15:59 Intake Total 200 / 200 200 / 200 80 / 80 Output Total 1158 / 1158 420 / 420 100 / 100 Balance -958 / -958 -220 / -220 -20 / -20 Intake: IV Fluids 200 / 200 200 / 200 Amiodarone 360mg/200mL 200 / 200 200 / 200 Drip Premix 360 mg In 200 ml @ 0.5 MG/MIN 16.667 mls/hr IVC CONT DAGO Rx#: [id number] Oral 80 / 80 Output: Urine 100 / 100 Total Dialysis Output 768 / 768 Catheter 250 / 250 400 / 400 Chest Tube Drainage 140 / 140 20 / 20 Mediastinal #1 110 / 110 20 / 20 Mediastinal #2 30 / 30 0 / 0 Other: Meal Breakfast Percent of Meal Consumed 10% Weight 78.426 kg Blood Glucose* 122 128 Hemodialysis Net Fluid 168 Removed (mL) Patient Weight 12/23/16 23:59 Weight 78.426 kg - General Appearance Exam: Patient is alert and oriented. He is in no acute distress. Lungs sounds otherwise clear. Heart regular rate and rhythm. Friction rub is not is loud. Abdomen is benign. There is minimal lower extremity swelling. There is an AV fistula in the upper portion of the right arm. - Lab 12/23/16 03:35 12/23/16 03:35 Most recent lab results ABG pH 7.34 pH Units (7.32-7.45) 12/20/16 20:00 ABG pCO2 40 mmHg (35-45) 12/20/16 20:00 ABG pO2 65 mmHg (85-104) L 12/20/16 20:00 ABG HCO3 21.6 mEQ/L (21-27) 12/20/16 20:00 ABG O2 Saturation 91 % (95-98) L 12/20/16 20:00 Calcium 8.1 mg/dL (8.6-10.8) L 12/23/16 03:35 Magnesium 2.4 mg/dL (1.6-2.6) 12/20/16 04:14 - VTE Documentation of Mechanical Device: Graduated compression elastic hosiery Consult Discharge Plan - Plan [facility]errals: [facility] [Primary Care Provider] -
[2016-12-23 10:58] LABS: Hepatitis B Surface Antibody 3.19 mIU/mL
[2016-12-23] MEDS: *HR* OxyCODONE/APAP 5/325 TABLET PO PRN ×2 (12:06→19:56)
[2016-12-23] MEDS ORDERED: 0.9 % Sodium Chloride 250 ML IV PRN (12:25)
[2016-12-23] MEDS: *HR* Morphine 2 MG/ML SYRINGE IVP PRN (23:34)
[2016-12-24] MEDS: *HR* Heparin 5,000 UNIT/ML VIAL SQ SCH ×2 (05:13→17:58)
[2016-12-24] MEDS: Pantoprazole 40 MG VIAL IVP SCH (05:13)
[2016-12-24] MEDS: *HR* OxyCODONE/APAP 5/325 TABLET PO PRN ×2 (05:16→20:53)
[2016-12-24 05:20] LABS: Potassium 3.4 mEq/L (3.5-4.5)
--- NOTE | 2016-12-24 06:31 | Cardiothoracic Progress Note ---
Date of Encounter: 12/24/16 Time of Encounter: 06:29 - Assessment and plan (1) CAD (coronary artery disease) Current Visit: Yes Status: Acute The patient is recovering well from his emergent CABG5. He had an MRI yesterday which revealed there were small ischemic infarcts scattered throughout the cerebral and cerebellar hemispheres. This also included the left precentral gyrus which probably represents the etiology of his right upper extremity weakness. The patient has a physical therapy and occupational therapy consult to help with strengthening and mobility after his stroke. He will be monitored in the ICU. The assessment and plan as outlined above was discussed with the patient and/or family members who expressed understanding and agreement. All questions were answered. Qualifiers: Coronary Disease-Associated Artery/Lesion type: [place] artery [place] vs. transplanted heart: [place] heart Associated angina: with unstable angina Qualified Code(s): I25.110 - Atherosclerotic heart disease of [place] coronary artery with unstable angina pectoris (2) STEMI (ST elevation myocardial infarction) Current Visit: Yes Status: Acute The patient is a 66-year-old hypertensive man with hypercholesterolemia and peripheral arterial disease who was transferred to [facility] from the [facility] with the diagnosis of an acute STEMI. The patient underwent emergent cardiac catheterization was found to have severe 3 vessel CAD. In particular the patient had a high-grade ostial left main lesion , a 70% proximal LCx lesion 70-80% proximal OM2 lesion, and a completely occluded distal RCA which filled via [id number] collaterals. The patient was recommended for emergent CABG due to the severity of his disease and ongoing symptoms. I concur with this recommendation. The patient will be taken for CABG this evening. The assessment and plan as outlined above was discussed with the patient and/or family members who expressed understanding and agreement. All questions were answered. Qualifiers: Involved coronary artery: left main coronary artery Qualified Code(s): I21.01 - ST elevation (STEMI) myocardial infarction involving left main coronary artery - Subjective Procedure(s) Performed: POD#5 S/P CABG5 Interval history: The patient remained stable overnight. He is breathing comfortably. He has persistent right upper extremity paralysis. Otherwise he has no complaints. Vital Signs, Last 4 Hours Temp Pulse Resp BP Pulse Ox 12/24/16 06:00 66 12 137/57 95 12/24/16 05:01 17 153/66 92 L 12/24/16 05:00 68 16 146/59 90 L 12/24/16 04:36 98.3 F 12/24/16 04:00 67 12 153/66 93 L 12/24/16 03:00 65 12 138/58 95 Oxgyen Flow Rate Oxygen Flow Rate (LPM) 4 Clinical Data, last 8 Hours Output, Urine Amount 50 Weight 12/22/16 12/23/16 12/24/16 23:59 23:59 23:59 Weight 77.9 kg 78.426 kg 77.1 kg - Physical Examination General: Conversant, No Apparent Distress Neck: No JVD, Normal carotid pulses Cardiac: Reg Rate and Rhythm, Normal S1 and S2, No Murmur Incision: No signs of infection, Dry/intact dressing Sternum: Stable Lungs: Normal Breath Sounds, No Wheeze, Rales, Rhonchi Neuro: Alert and responsive, Other (Right upper extremity paralysis, unchanged.) Vascular: Normal capillary refill Musculoskeletal: No Chest Wall Tenderness Extremities: No Clubbing, No Cyanosis, No Edema - Labs 12/23/16 03:35 12/24/16 04:50 Lab Results, Last 24 hours 12/24/16 12/24/16 04:50 04:50 APTT 28.6 Sodium 142 Potassium 3.4 L Chloride 107 Carbon Dioxide 20 BUN 48 H D Creatinine 3.77 H Glucose 104 H Calcium 8.0 L - VTE Documentation of Mechanical Device: Graduated compression elastic hosiery Consult Discharge Plan - Plan [facility]errals: [facility] [Primary Care Provider] -
[2016-12-24 06:41] LABS: Basophils % 0.1 %; Eosinophils # 0.1 K/mcL (0.0-0.6); Eosinophils % 1.7 %; Hematocrit 23.1 % (37.5-50.1); Hemoglobin 7.5 g/dL (12.9-16.9); Immature Granulocytes % 0.4 % (0-4); Lymphocytes # 0.8 K/mcL (0.6-4.6); Lymphocytes % 9.5 %; Mean Corpuscular HGB Conc 32.5 g/dL (31.6-35.5); Mean Corpuscular Volume 95.5 fL (83.0-100.0); Mean Platelet Volume 10.4 fL (9.4-12.4); Monocytes # 0.9 K/mcL (0.0-1.3); Monocytes % 11.5 %; Neutrophils # 6.3 K/mcL (1.6-8.9); Nucleated Red Blood Cells 0.2 /100 WBC (0); Platelet Count 129 K/mcL (140-400); Red Blood Count 2.42 M/mcL (4.19-5.50); Red Cell Distribution Width 14.2 % (11.5-14.5); Segmented Neutrophils % 76.8 %
[2016-12-24] MEDS: niCARdipine 40 MG/200 ML MLS IVC SCH (07:44)
[2016-12-24] MEDS: Insulin LISPRO 300 UNITS/3 ML VIAL SQ SCH ×4 (10:19→20:53)
--- NOTE | 2016-12-24 10:19 | Nephrology Progress Note ---
Date of Encounter: 12/24/16 Time of Encounter: 10:00 - Assessment and Plan (1) Chronic kidney disease, stage IV (severe) Current Visit: Yes Status: Acute CATHRYN/CKD 4 s/p CABG x 5. Creat 3.77. Urine output 400cc, no edema. No HD today. Subjective Principal diagnosis: Left cerebral hemispheric dysfunction Interval history: Remains in ICU, Alert, cooperative,answers questions with short answers, appropriate. Gross motor movement right upper extremity. Objective - Vital Signs Vital signs: Vital Signs Temp Pulse Resp BP Pulse Ox 12/24/16 09:00 72 16 126/56 95 12/24/16 08:00 72 16 135/62 95 12/24/16 07:57 98.4 F 12/24/16 07:33 66 16 137/72 95 12/24/16 06:00 66 12 137/57 95 12/24/16 05:01 17 153/66 92 L 12/24/16 05:00 68 16 146/59 90 L 12/24/16 04:36 98.3 F 12/24/16 04:00 67 12 153/66 93 L 12/24/16 03:00 65 12 138/58 95 12/24/16 02:00 63 18 138/60 97 12/24/16 01:00 65 12 142/62 91 L 12/24/16 00:09 67 12 138/55 93 L 12/24/16 00:07 97.7 F 12/23/16 23:41 67 12/23/16 23:00 67 14 142/62 95 12/23/16 22:00 69 14 142/62 93 L 12/23/16 21:25 12 142/94 98 12/23/16 21:00 68 12 142/64 98 12/23/16 20:11 69 12 145/78 96 12/23/16 20:09 98.4 F 12/23/16 20:00 69 12/23/16 19:00 67 12 143/60 96 12/23/16 17:40 68 12 143/60 96 12/23/16 17:05 98.3 F 12/23/16 16:53 12 96 12/23/16 16:07 67 12/23/16 16:00 67 12 134/56 96 12/23/16 15:25 98.2 F 22 132/61 12/23/16 15:10 121/60 12/23/16 15:00 67 12 130/58 96 12/23/16 14:55 138/56 12/23/16 14:40 137/59 12/23/16 14:25 138/56 12/23/16 14:10 123/57 12/23/16 14:00 65 12 138/56 96 12/23/16 13:55 130/58 12/23/16 13:40 123/57 12/23/16 13:25 127/57 12/23/16 13:10 127/57 12/23/16 13:00 63 12 127/56 96 12/23/16 12:55 12 127/56 12/23/16 12:50 98.4 F 12 12/23/16 12:05 12 133/53 96 12/23/16 12:00 63 12 120/58 96 12/23/16 11:29 98.4 F 12/23/16 11:06 68 12/23/16 11:00 68 12 133/53 96 Intake and Output 12/23/16 12/24/16 12/24/16 23:59 07:59 15:59 Intake Total 1200 / 1200 0 / 0 Output Total 25 / 25 150 / 150 Balance 1175 / 1175 -150 / -150 Intake: IV Fluids 1200 / 1200 0.9 % Sodium Chloride 1, 1000 / 1000 000 ML @ 50 mls/hr IVC . Q20H DAGO Rx#:[id number] Amiodarone 360mg/200mL 200 / 200 Drip Premix 360 mg In 200 ml @ 0.5 MG/MIN 16.667 mls/hr IVC CONT DAGO Rx#: [id number] Oral 0 / 0 0 / 0 Output: Urine 25 / 25 150 / 150 Other: # Voids 1 Weight 77.1 kg Blood Glucose* 115 116 Patient Weight 12/24/16 23:59 Weight 77.1 kg - General Appearance General appearance: Present: well-developed, well-nourished, appears started age EENT: Present: mucous membranes moist Neck: Present: no JVD Respiratory: Present: clear Additional Comments: harsh breath sounds Cardiology: Present: no edema, regular rate, regular rhythm Gastrointestinal: Present: hypoactive bowel sounds, no tenderness Integumentary: Present: warm and dry Neurologic: Present: alert and oriented x3 Psychiatric: Present: mood/affect appropriate, cooperative - Lab 12/24/16 06:30 12/24/16 04:50 Most recent lab results ABG pH 7.34 pH Units (7.32-7.45) 12/20/16 20:00 ABG pCO2 40 mmHg (35-45) 12/20/16 20:00 ABG pO2 65 mmHg (85-104) L 12/20/16 20:00 ABG HCO3 21.6 mEQ/L (21-27) 12/20/16 20:00 ABG O2 Saturation 91 % (95-98) L 12/20/16 20:00 Calcium 8.0 mg/dL (8.6-10.8) L 12/24/16 04:50 Magnesium 2.4 mg/dL (1.6-2.6) 12/20/16 04:14 - VTE Documentation of Mechanical Device: Graduated compression elastic hosiery Consult Discharge Plan - Plan Referrals: [facility] [Primary Care Provider] -
[2016-12-24] MEDS: Docusate Oral Soln 100 MG/10 ML UDC PO SCH ×2 (10:22→20:54)
[2016-12-24] MEDS: Aspirin 81 MG TAB.CHEW PO SCH (10:23)
[2016-12-24] MEDS: *HR* Amiodarone 200 MG TABLET PO SCH (10:23)
[2016-12-24] MEDS: Nicotine 21 MG PATCH.TD24 TD SCH (17:58)
[2016-12-25 05:22] LABS: Hematocrit 24.8 % (37.5-50.1); Hemoglobin 8.2 g/dL (12.9-16.9); Mean Corpuscular HGB Conc 33.1 g/dL (31.6-35.5); Mean Corpuscular Hemoglobin 31.4 pg (28.0-33.3); Mean Platelet Volume 10.5 fL (9.4-12.4); Platelet Count 174 K/mcL (140-400); Red Blood Count 2.61 M/mcL (4.19-5.50)
[2016-12-25 05:33] LABS: Potassium 3.3 mEq/L (3.5-4.5)
[2016-12-25] MEDS: *HR* Heparin 5,000 UNIT/ML VIAL SQ SCH ×2 (05:38→18:39)
[2016-12-25] MEDS: Pantoprazole 40 MG VIAL IVP SCH (05:38)
[2016-12-25] MEDS: *HR* OxyCODONE/APAP 5/325 TABLET PO PRN ×3 (05:39→21:04)
--- NOTE | 2016-12-25 07:31 | Cardiothoracic Progress Note ---
Date of Encounter: 12/25/16 Time of Encounter: 07:28 - Assessment and plan (1) CAD (coronary artery disease) Current Visit: Yes Status: Acute The patient is recovering well from his emergent CABG5.He was able to sit up the side of the bed last night and will try to sit in a chair later today. He will be transferred to the stepdown unit today. The assessment and plan as outlined above was discussed with the patient and/or family members who expressed understanding and agreement. All questions were answered. Qualifiers: Coronary Disease-Associated Artery/Lesion type: [place] artery [place] vs. transplanted heart: [place] heart Associated angina: with unstable angina Qualified Code(s): I25.110 - Atherosclerotic heart disease of [place] coronary artery with unstable angina pectoris (2) STEMI (ST elevation myocardial infarction) Current Visit: Yes Status: Acute The patient is a 66-year-old hypertensive man with hypercholesterolemia and peripheral arterial disease who was transferred to [facility] from the [facility] with the diagnosis of an acute STEMI. The patient underwent emergent cardiac catheterization was found to have severe 3 vessel CAD. In particular the patient had a high-grade ostial left main lesion , a 70% proximal LCx lesion 70-80% proximal OM2 lesion, and a completely occluded distal RCA which filled via [id number] collaterals. The patient was recommended for emergent CABG due to the severity of his disease and ongoing symptoms. I concur with this recommendation. The patient will be taken for CABG this evening. The assessment and plan as outlined above was discussed with the patient and/or family members who expressed understanding and agreement. All questions were answered. Qualifiers: Involved coronary artery: left main coronary artery Qualified Code(s): I21.01 - ST elevation (STEMI) myocardial infarction involving left main coronary artery - Subjective Procedure(s) Performed: POD#6 S/P CABG5 Interval history: The patient remained stable overnight. He is breathing comfortably. He has persistent right upper extremity paralysis. Otherwise he has no complaints. Vital Signs, Last 4 Hours Temp Pulse Resp BP Pulse Ox 12/25/16 06:00 89 18 150/59 94 L 12/25/16 05:00 99.7 F H 87 18 152/58 96 12/25/16 04:56 18 150/84 91 L 12/25/16 04:00 87 16 158/84 95 Oxgyen Flow Rate Oxygen Flow Rate (LPM) 4 Clinical Data, last 8 Hours Output, Urine Amount 75 Output, Urine Amount 50 Weight 12/23/16 12/24/16 12/25/16 23:59 23:59 23:59 Weight 78.426 kg 77.1 kg - Physical Examination General: Conversant, No Apparent Distress Neck: No JVD, Normal carotid pulses Cardiac: Reg Rate and Rhythm, Normal S1 and S2, No Murmur Incision: No signs of infection, Dry/intact dressing Sternum: Stable Lungs: Normal Breath Sounds, No Wheeze, Rales, Rhonchi Neuro: Alert and responsive, No focal deficits noted Vascular: Normal capillary refill Musculoskeletal: No Chest Wall Tenderness Extremities: No Clubbing, No Cyanosis, No Edema - Labs 12/25/16 05:05 12/25/16 05:05 Lab Results, Last 24 hours 12/25/16 12/25/16 05:05 05:05 WBC 11.9 H Hgb 8.2 L Hct 24.8 L Plt Count 174 Sodium 143 Potassium 3.3 L Chloride 108 Carbon Dioxide 19 BUN 54 H Creatinine 4.04 H Glucose 87 Calcium 8.0 L - Imaging Chest Xray: image reviewed (No pneumothorax. Decreased pulmonary vascularity) - VTE Documentation of Mechanical Device: Graduated compression elastic hosiery Consult Discharge Plan - Plan [facility]errals: [facility] [Primary Care Provider] -
[2016-12-25] MEDS: niCARdipine 40 MG/200 ML MLS IVC SCH (08:03)
[2016-12-25] MEDS: Insulin LISPRO 300 UNITS/3 ML VIAL SQ SCH ×4 (09:10→20:45)
[2016-12-25] MEDS: *HR* Amiodarone 200 MG TABLET PO SCH (09:11)
[2016-12-25] MEDS: Nicotine 21 MG PATCH.TD24 TD SCH (09:11)
[2016-12-25] MEDS: Aspirin 81 MG TAB.CHEW PO SCH (09:11)
[2016-12-25] MEDS: Docusate Oral Soln 100 MG/10 ML UDC PO SCH ×2 (09:11→21:15)
[2016-12-25] MEDS ORDERED: Ondansetron 4 MG/2 ML VIAL IVP PRN (09:17)
[2016-12-25] MEDS ORDERED: *HR* Morphine 2 MG/ML SYRINGE IVP PRN ×2 (09:17)
[2016-12-25] MEDS ORDERED: Acetaminophen 325 MG TABLET PO PRN (09:17)
[2016-12-25] MEDS ORDERED: Dextrose Gel 15 GM PO PRN ×2 (09:17)
--- NOTE | 2016-12-25 09:20 | Nephrology Progress Note ---
Date of Encounter: 12/25/16 Time of Encounter: 09:00 - Assessment and Plan (1) Chronic kidney disease, stage IV (severe) Current Visit: Yes Status: Acute CATHRYN/CKD 4 s/p CABG x 5. Renal fct worsening, creat 4.04. Urine output 675cc, no edema, lungs clear. No HD today, most likely tomorrow. Subjective Principal diagnosis: Left cerebral hemispheric dysfunction Interval history: Remains in ICU, Alert, more talkative. appropriate. Gross motor movement right upper extremity. Objective - Vital Signs Vital signs: Vital Signs Temp Pulse Resp BP Pulse Ox 12/25/16 09:00 83 18 95/74 94 L 12/25/16 07:59 98.3 F 12/25/16 07:52 89 18 162/90 94 L 12/25/16 06:00 89 18 150/59 94 L 12/25/16 05:00 99.7 F H 87 18 152/58 96 12/25/16 04:56 18 150/84 91 L 12/25/16 04:00 87 16 158/84 95 12/25/16 03:00 89 24 156/73 91 L 12/25/16 02:00 80 22 155/65 92 L 12/25/16 01:00 80 14 161/68 98 12/25/16 00:10 14 144/87 94 L 12/25/16 00:00 80 14 144/87 98 12/24/16 23:00 82 14 152/63 99 12/24/16 22:00 74 12 164/77 93 L 12/24/16 21:00 82 14 164/77 93 L 12/24/16 20:00 82 22 159/65 93 L 12/24/16 19:45 20 163/69 90 L 12/24/16 19:00 80 16 163/69 93 L 12/24/16 18:45 97.2 F L 12/24/16 18:00 81 16 93 L 12/24/16 17:00 85 16 150/80 93 L 12/24/16 16:26 73 16 149/66 93 L 12/24/16 15:48 16 93 L 12/24/16 15:00 98.8 F 73 16 147/67 93 L 12/24/16 13:52 70 12/24/16 13:00 16 138/54 95 12/24/16 12:00 70 16 120/55 95 12/24/16 11:36 97.9 F 12/24/16 11:32 16 95 12/24/16 11:00 70 16 135/61 95 12/24/16 10:00 72 16 139/80 95 Intake and Output 12/24/16 12/25/16 12/25/16 23:59 07:59 15:59 Intake Total 500 / 500 50 / 50 Output Total 250 / 250 125 / 125 Balance 250 / 250 -75 / -75 Intake: IV Fluids 500 / 500 0.9 % Sodium Chloride 1, 500 / 500 000 ML @ 50 mls/hr IVC . Q20H DAGO Rx#:[id number] Oral 50 / 50 Output: Urine 250 / 250 125 / 125 Other: Meal Dinner Percent of Meal Consumed 10% Stool Size Large Smear Stool Consistency soft liquid Stool Characteristics Normal for Patient Stool Color Brown Brown # Bowel Movements 1 1 Blood Glucose* 131 103 - General Appearance General appearance: Present: well-developed, well-nourished, appears started age EENT: Present: mucous membranes moist Neck: Present: no JVD Respiratory: Present: clear Cardiology: Present: no edema, regular rate, regular rhythm Gastrointestinal: Present: normoactive bowel sounds, no tenderness Integumentary: Present: warm and dry Neurologic: Present: alert and oriented x3 Psychiatric: Present: mood/affect appropriate, cooperative - Lab 12/25/16 05:05 12/25/16 05:05 Most recent lab results ABG pH 7.34 pH Units (7.32-7.45) 12/20/16 20:00 ABG pCO2 40 mmHg (35-45) 12/20/16 20:00 ABG pO2 65 mmHg (85-104) L 12/20/16 20:00 ABG HCO3 21.6 mEQ/L (21-27) 12/20/16 20:00 ABG O2 Saturation 91 % (95-98) L 12/20/16 20:00 Calcium 8.0 mg/dL (8.6-10.8) L 12/25/16 05:05 Magnesium 2.4 mg/dL (1.6-2.6) 12/20/16 04:14 - VTE Documentation of Mechanical Device: Graduated compression elastic hosiery Consult Discharge Plan - Plan Referrals: [facility] [Primary Care Provider] -
--- NOTE | 2016-12-25 14:18 | Neurology Progress Note ---
Date of Encounter: 12/25/16 Time of Encounter: 14:12 Assessment and Plan (1) Right arm weakness Current Visit: Yes Status: Acute (2) Embolic stroke Current Visit: Yes Status: Acute At this time I simply recommend maintaining ASA 81mg along with statin and other risk factor mgmt. He will require intense PT/OT in order to maximize his ability to recover use of his RUE. Unfortunately I expect some degree of permanent weakness of the RUE. I will reevaluate at your request. Qualifiers: Laterality of affected vessel: bilateral Qualified Code(s): I63.413 - Cerebral infarction due to embolism of bilateral middle cerebral arteries Subjective Principal diagnosis: Left cerebral hemispheric dysfunction Interval history: Chart was reviewed, the patient was seen and examined, case was discussed with nursing. His mental status has improved significantly. He is awake and alert and verbal. Follows commands and answers questions appropriately. MRI of the brain shows multiple bihemispheric infarcts involving the anterior as well as posterior circulation, certainly embolic in nature. The largest of which involves the left parietal region, leading to the RUE weakness. Given the timing of the event, he would not have been a candidate for thrombolitics. Objective - Constitutional Vitals: Temp Pulse Resp BP Pulse Ox 98.3 F 82 18 147/66 94 L 12/25/16 11:00 12/25/16 11:23 12/25/16 11:20 12/25/16 11:20 12/25/16 11:20 - Neurological Exam Mental Status Examination: Present: awake, alert, oriented to person, oriented to place, makes eye contact, follows simple commands Cranial nerve examination: Present: PERRL, EOMI, sensory to face intact, mastication intact, no facial asymmetry is present, no dysarthria Additional comments: patient maintains flaccid paralysis of the right upper extremity. The right leg is weak, but not flaccid and he is able to move it. He maintains normal strength of the LUE and LLE. Mentation is intact. - VTE Documentation of Mechanical Device: Graduated compression elastic hosiery Results - Laboratory Findings CBC and BMP: 12/25/16 05:05 12/25/16 05:05 Abnormal lab findings: Abnormal lab results WBC 11.9 K/mcL (4.3-11.1) H 12/25/16 05:05 RBC 2.61 M/mcL (4.19-5.50) L 12/25/16 05:05 Hgb 8.2 g/dL (12.9-16.9) L 12/25/16 05:05 Hct 24.8 % (37.5-50.1) L 12/25/16 05:05 Band Neutrophils % 50.0 % (0-4) H 12/20/16 03:00 Metamyelocytes % 2.0 % (0) H 12/20/16 03:00 Nucleated RBCs/100 WBC 0.2 /100 WBC (0) H 12/24/16 06:30 Reactive Lymphocytes Present (Not Present) A 12/20/16 03:00 Toxic Granulation Present (Not Present) A 12/20/16 03:00 Toxic Vacuolation Present (Not Present) A 12/20/16 03:00 PT 12.9 Seconds (9.4-12.1) H 12/20/16 03:00 Heparin Anti-Xa, Unfract 0.72 IU/mL (0.30-0.70) H 12/19/16 16:02 ABG pO2 65 mmHg (85-104) L 12/20/16 20:00 ABG O2 Saturation 91 % (95-98) L 12/20/16 20:00 ABG Base Excess -3.9 mEq/L (-2.0 to 3.0) L 12/20/16 20:00 ABG Hematocrit 27 % (35-51) L 12/19/16 20:50 VBG pH 7.30 pH Units (7.32-7.42) L 12/19/16 19:12 VBG pO2 43 mmHg (25-40) H 12/19/16 19:12 VBG Hematocrit 24 % (38-54) L 12/19/16 19:12 VBG Ionized Calcium 0.92 mmol/L (1.15-1.35) L 12/19/16 19:12 Potassium 3.2 mEq/L (3.5-5.3) L 12/19/16 20:50 Glucose 151 mg/dL (60-95) H 12/19/16 20:50 Ionized Calcium 1.05 mmol/L (1.15-1.35) L 12/19/16 20:50 Potassium 3.3 mEq/L (3.5-4.5) L 12/25/16 05:05 BUN 54 mg/dL (8-26) H 12/25/16 05:05 Creatinine 4.04 mg/dL (0.72-1.25) H 12/25/16 05:05 Est GFR ( Amer) 18 (> 60) L 12/25/16 05:05 Est GFR (Non-Af Amer) 15 (> 60) L 12/25/16 05:05 POC Glucose 100 (58-89) H 12/25/16 11:18 Calculated Osmolality 310 (280-300) H 12/25/16 05:05 Calcium 8.0 mg/dL (8.6-10.8) L 12/25/16 05:05 AST 164 Units/L (5-34) H 12/20/16 08:35 Serum Total Protein 4.1 g/dL (6.0-8.3) L D 12/20/16 08:35 Albumin 2.0 g/dL (3.5-5.0) L D 12/20/16 08:35 Globulin 2.1 g/dL (2.4-3.5) L 12/20/16 08:35 Albumin/Globulin Ratio 1.0 (1.1-2.2) L 12/20/16 08:35 Consult Discharge Plan - Plan Referrals: [facility] [Primary Care Provider] -
[2016-12-26] MEDS: *HR* OxyCODONE/APAP 5/325 TABLET PO PRN ×4 (04:33→21:18)
[2016-12-26] MEDS: Pantoprazole 40 MG VIAL IVP SCH (05:52)
[2016-12-26 06:08] LABS: Hematocrit 23.3 % (37.5-50.1); Hemoglobin 7.7 g/dL (12.9-16.9); Mean Corpuscular Hemoglobin 31.6 pg (28.0-33.3); Mean Corpuscular Volume 95.5 fL (83.0-100.0); Mean Platelet Volume 10.4 fL (9.4-12.4); Platelet Count 199 K/mcL (140-400); Red Blood Count 2.44 M/mcL (4.19-5.50); Red Cell Distribution Width 14.2 % (11.5-14.5)
[2016-12-26 06:15] LABS: Potassium 3.3 mEq/L (3.5-4.5)
[2016-12-26] MEDS: *HR* Heparin 5,000 UNIT/ML VIAL SQ SCH ×2 (06:30→21:20)
[2016-12-26] MEDS: Insulin LISPRO 300 UNITS/3 ML VIAL SQ SCH ×4 (08:04→21:12)
[2016-12-26] MEDS: Nicotine 21 MG PATCH.TD24 TD SCH (08:10)
[2016-12-26] MEDS: Aspirin 81 MG TAB.CHEW PO SCH (08:10)
[2016-12-26] MEDS: *HR* Amiodarone 200 MG TABLET PO SCH (08:11)
[2016-12-26] MEDS: Docusate Oral Soln 100 MG/10 ML UDC PO SCH ×2 (08:11→21:18)
[2016-12-26] MEDS ORDERED: 0.9 % Sodium Chloride 250 ML IV PRN (12:12)
--- NOTE | 2016-12-26 12:21 | Nephrology Progress Note ---
Date of Encounter: 12/26/16 Time of Encounter: 12:10 - Assessment and Plan (1) Chronic kidney disease, stage IV (severe) Current Visit: Yes Status: Acute CATHRYN/CKD 4 s/p CABG x 5. Renal fct worsening, creat 4.40. Urine output 450cc, no edema, lungs clear. HD today, orders given. Subjective Principal diagnosis: Left cerebral hemispheric dysfunction Interval history: Alert,talkative. appropriate. Gross motor movement right upper extremity. Objective - Vital Signs Vital signs: Vital Signs Temp Pulse Resp BP Pulse Ox 12/26/16 11:40 65 12/26/16 11:21 97.9 F 68 16 129/80 97 12/26/16 11:12 15 97 12/26/16 08:00 70 12/26/16 07:42 15 97 12/26/16 07:16 98.2 F 77 14 140/62 96 12/26/16 05:20 16 99 12/26/16 04:33 72 12/26/16 04:19 97.6 F 76 16 140/61 97 12/26/16 01:40 16 96 12/26/16 01:18 16 96 12/26/16 00:40 74 12/26/16 00:38 98.3 F 75 16 143/53 95 12/25/16 21:14 18 97 12/25/16 20:36 98.7 F 77 18 142/63 96 12/25/16 20:25 80 12/25/16 17:55 16 98 12/25/16 14:50 98.4 F 81 18 152/67 94 L Intake and Output 12/25/16 12/26/16 12/26/16 23:59 07:59 15:59 Intake Total 360 / 360 0 / 0 240 / 240 Output Total 125 / 125 325 / 325 50 / 50 Balance 235 / 235 -325 / -325 190 / 190 Intake: Oral 360 / 360 0 / 0 240 / 240 Output: Urine 125 / 125 325 / 325 50 / 50 Other: Meal Dinner Breakfast Percent of Meal Consumed 20% 100% Stool Size Small Small Stool Consistency loose liquid liquid Stool Color Brown Green Green Weight 74 kg Blood Glucose* 128 112 114 Patient Weight 12/26/16 23:59 Weight 74 kg - General Appearance General appearance: Present: well-developed, well-nourished, appears started age EENT: Present: mucous membranes moist Neck: Present: no JVD Respiratory: Present: clear Cardiology: Present: no edema, regular rate, regular rhythm Gastrointestinal: Present: normoactive bowel sounds, no tenderness Integumentary: Present: warm and dry Neurologic: Present: alert and oriented x3 Psychiatric: Present: mood/affect appropriate, cooperative - Lab 12/26/16 05:50 12/26/16 05:50 Most recent lab results ABG pH 7.34 pH Units (7.32-7.45) 12/20/16 20:00 ABG pCO2 40 mmHg (35-45) 12/20/16 20:00 ABG pO2 65 mmHg (85-104) L 12/20/16 20:00 ABG HCO3 21.6 mEQ/L (21-27) 12/20/16 20:00 ABG O2 Saturation 91 % (95-98) L 12/20/16 20:00 Calcium 8.0 mg/dL (8.6-10.8) L 12/26/16 05:50 Magnesium 2.4 mg/dL (1.6-2.6) 12/20/16 04:14 - VTE Documentation of Mechanical Device: Graduated compression elastic hosiery Consult Discharge Plan - Plan [facility]errals: [facility] [Primary Care Provider] -
[2016-12-26] MEDS ORDERED: 0.9 % Sodium Chloride 2,000 ML ONE (12:39)
--- NOTE | 2016-12-26 15:54 | Cardiothoracic Progress Note ---
Date of Encounter: 12/26/16 Time of Encounter: 15:52 - Assessment and plan (1) STEMI (ST elevation myocardial infarction) Current Visit: Yes Status: Acute The assessment and plan as outlined above was discussed with the patient and/or family members who expressed understanding and agreement. All questions were answered. The patient is due for dialysis today. Hopefully, his neurological status will gradually improve. Qualifiers: Involved coronary artery: left main coronary artery Qualified Code(s): I21.01 - ST elevation (STEMI) myocardial infarction involving left main coronary artery - Subjective Interval history: The patient has no complaints and is awaiting dialysis. Vital Signs, Last 4 Hours Pulse Resp Pulse Ox 12/26/16 15:20 16 96 12/26/16 15:00 68 Oxgyen Flow Rate Oxygen Flow Rate (LPM) 3.5 Clinical Data, last 8 Hours Output, Urine Amount 50 Weight 12/24/16 12/25/16 12/26/16 23:59 23:59 23:59 Weight 77.1 kg 74 kg Lungs are clear to percussion and auscultation. Heart is in a normal sinus rhythm. All incisions are healing well without signs of infection and the sternum is stable. The patient is unable to move his right arm. His left arm and both legs are without deficit. - Labs 12/26/16 05:50 12/26/16 05:50 Lab Results, Last 24 hours 12/26/16 12/26/16 05:50 05:50 WBC 12.7 H Hgb 7.7 L Hct 23.3 L Plt Count 199 Sodium 141 Potassium 3.3 L Chloride 108 Carbon Dioxide 20 BUN 55 H Creatinine 4.40 H Glucose 103 H Calcium 8.0 L - VTE Documentation of Mechanical Device: Graduated compression elastic hosiery Consult Discharge Plan - Plan [facility]errals: [facility] [Primary Care Provider] -
[2016-12-27] MEDS: *HR* OxyCODONE/APAP 5/325 TABLET PO PRN ×3 (02:42→15:27)
[2016-12-27 04:10] LABS: Hemoglobin 7.7 g/dL (12.9-16.9); Mean Corpuscular HGB Conc 32.1 g/dL (31.6-35.5); Mean Corpuscular Hemoglobin 30.8 pg (28.0-33.3); Mean Platelet Volume 10.3 fL (9.4-12.4); Nucleated Red Blood Cells 0.3 /100 WBC (0); Platelet Count 223 K/mcL (140-400); Red Cell Distribution Width 14.1 % (11.5-14.5)
[2016-12-27 04:23] LABS: Calcium 8.2 mg/dL (8.6-10.8); Potassium 3.4 mEq/L (3.5-4.5)
[2016-12-27 04:54] LABS: Eosinophils # 0.9 K/mcL (0.0-0.6); Lymphocytes # 1.2 K/mcL (0.6-4.6); Monocytes # 0.9 K/mcL (0.0-1.3); Neutrophils # 8.7 K/mcL (1.6-8.9)
[2016-12-27 04:55] LABS: Platelet Estimate Normal (Normal); Toxic Vacuolation Present (Not Present)
[2016-12-27] MEDS: *HR* Heparin 5,000 UNIT/ML VIAL SQ SCH ×2 (06:21→20:24)
[2016-12-27] MEDS: Pantoprazole 40 MG VIAL IVP SCH (06:21)
[2016-12-27] MEDS: Insulin LISPRO 300 UNITS/3 ML VIAL SQ SCH ×4 (07:38→21:47)
[2016-12-27] MEDS: *HR* Amiodarone 200 MG TABLET PO SCH (07:41)
[2016-12-27] MEDS: Aspirin 81 MG TAB.CHEW PO SCH (07:41)
[2016-12-27] MEDS: Nicotine 21 MG PATCH.TD24 TD SCH (07:41)
[2016-12-27] MEDS: Docusate Oral Soln 100 MG/10 ML UDC PO SCH ×2 (07:41→21:46)
--- NOTE | 2016-12-27 07:59 | Nephrology Progress Note ---
Date of Encounter: 12/27/16 Time of Encounter: 07:57 - Assessment and Plan (1) Chronic kidney disease, stage IV (severe) Current Visit: Yes Status: Acute Patient has acute kidney injury superimposed on chronic kidney disease following emergent CABG. patient remains dialysis dependent. He may be at end- stage renal disease. We will echo arrangements for outpatient dialysis. He is anemic so we will get him started on Aranesp and check his iron studies as well. Potassium is 3.4. He will receive potassium supplementation. (2) Benign hypertension with chronic kidney disease, stage IV Current Visit: Yes Status: Acute (3) CAD (coronary artery disease) Current Visit: Yes Status: Acute Qualifiers: Coronary Disease-Associated Artery/Lesion type: [place] artery [place] vs. transplanted heart: [place] heart Associated angina: with unstable angina Qualified Code(s): I25.110 - Atherosclerotic heart disease of [place] coronary artery with unstable angina pectoris (4) STEMI (ST elevation myocardial infarction) Current Visit: Yes Status: Acute Qualifiers: Involved coronary artery: left main coronary artery Qualified Code(s): I21.01 - ST elevation (STEMI) myocardial infarction involving left main coronary artery Subjective Principal diagnosis: Left cerebral hemispheric dysfunction Interval history: Patient denies any new complaints. Unfortunately he is still not recovered any motor function in the right upper extremity. He had dialysis yesterday. He continues to make some urine but he does remain dialysis dependent. Objective - Vital Signs Vital signs: Vital Signs Temp Pulse Resp BP Pulse Ox 12/27/16 07:37 98.4 F 73 16 127/55 92 L 12/27/16 04:00 97.9 F 72 12 122/57 95 12/27/16 00:19 98.1 F 74 15 125/53 97 12/27/16 00:17 20 96 12/26/16 21:02 20 96 12/26/16 20:07 98 F 20 131/57 12/26/16 20:00 124/58 12/26/16 19:45 136/54 12/26/16 19:15 125/52 12/26/16 18:45 122/56 12/26/16 18:15 137/62 12/26/16 17:45 123/58 12/26/16 17:15 137/62 12/26/16 17:00 98 F 22 137/58 12/26/16 15:57 98.0 F 71 14 133/57 92 L 12/26/16 15:20 16 96 12/26/16 15:00 68 12/26/16 11:40 65 12/26/16 11:21 97.9 F 68 16 129/80 97 12/26/16 11:12 15 97 12/26/16 08:00 70 Intake and Output 12/26/16 12/26/16 12/27/16 15:59 23:59 07:59 Intake Total 360 / 360 840 / 840 320 / 320 Output Total 50 / 50 2650 / 2650 200 / 200 Balance 310 / 310 -1810 / -1810 120 / 120 Intake: Oral 360 / 360 240 / 240 320 / 320 Intake, [place] and 600 / 600 Flushes Output: Urine 50 / 50 50 / 50 200 / 200 Total Dialysis Output 2600 / 2600 Other: Meal Lunch Percent of Meal Consumed 0% Stool Size Large Smear Stool Consistency loose loose Stool Color Brown Brown # Bowel Movements 1 Weight 74 kg 73.1 kg Blood Glucose* 105 117 Hemodialysis Net Fluid 2000 Removed (mL) Patient Weight 12/27/16 23:59 Weight 73.1 kg - General Appearance Exam: Patient is alert and oriented. He is in no acute distress. Lungs breath sounds otherwise clear. Heart regular rate and rhythm with a systolic murmur. Abdomen is benign. There is paralysis of the right upper extremity. There is mild lower extremity swelling. There is a functioning AV fistula in the right upper extremity. - Lab 12/27/16 03:54 12/27/16 03:54 Most recent lab results ABG pH 7.34 pH Units (7.32-7.45) 12/20/16 20:00 ABG pCO2 40 mmHg (35-45) 12/20/16 20:00 ABG pO2 65 mmHg (85-104) L 12/20/16 20:00 ABG HCO3 21.6 mEQ/L (21-27) 12/20/16 20:00 ABG O2 Saturation 91 % (95-98) L 12/20/16 20:00 Calcium 8.2 mg/dL (8.6-10.8) L 12/27/16 03:54 Magnesium 2.4 mg/dL (1.6-2.6) 12/20/16 04:14 - VTE Documentation of Mechanical Device: Graduated compression elastic hosiery Consult Discharge Plan - Plan Referrals: [facility] [Primary Care Provider] -
[2016-12-27] MEDS ORDERED: Darbepoetin 100 MCG/0.5 ML SYRINGE SQ SCH (08:00)
--- NOTE | 2016-12-27 08:11 | Cardiothoracic Progress Note ---
Date of Encounter: 12/27/16 Time of Encounter: 08:09 - Assessment and plan (1) STEMI (ST elevation myocardial infarction) Current Visit: Yes Status: Acute The patient does have the usual, expected acute postoperative blood loss anemia. He continues with an inability to move the right arm. Hopefully, he can be discharged to an extended care facility later this week. Qualifiers: Involved coronary artery: left main coronary artery Qualified Code(s): I21.01 - ST elevation (STEMI) myocardial infarction involving left main coronary artery - Subjective Interval history: The patient has no new complaints. He underwent dialysis yesterday. Vital Signs, Last 4 Hours Temp Pulse Resp BP Pulse Ox 12/27/16 07:57 76 12/27/16 07:37 98.4 F 73 16 127/55 92 L Oxgyen Flow Rate Oxygen Flow Rate (LPM) 1 Clinical Data, last 8 Hours Output, Urine Amount 100 Output, Urine Amount 100 Weight 12/25/16 12/26/16 12/27/16 23:59 23:59 23:59 Weight 74 kg 73.1 kg Lungs are clear to percussion and auscultation. Heart is in a normal sinus rhythm. All incisions are healing well without signs of infection and the sternum is stable. - Labs 12/27/16 03:54 12/27/16 03:54 Lab Results, Last 24 hours 12/27/16 12/27/16 03:54 03:54 WBC 11.8 H Hgb 7.7 L Hct 24.0 L Plt Count 223 Sodium 141 Potassium 3.4 L Chloride 105 Carbon Dioxide 24 BUN 34 H D Creatinine 3.02 H Glucose 88 Calcium 8.2 L - VTE Documentation of Mechanical Device: Graduated compression elastic hosiery Consult Discharge Plan - Plan Referrals: [facility] [Primary Care Provider] -
[2016-12-27 11:16] LABS: % Iron Saturation 12 % (20-55); Iron 20 mcg/dL (65-175); Transferrin 119 mg/dL (174-364)
[2016-12-27 11:37] LABS: Ferritin 284 ng/ml (22-275)
[2016-12-28 04:54] LABS: Eosinophils # 0.6 K/mcL (0.0-0.6); Hematocrit 23.3 % (37.5-50.1); Hemoglobin 7.5 g/dL (12.9-16.9); Mean Corpuscular HGB Conc 32.2 g/dL (31.6-35.5); Mean Corpuscular Hemoglobin 30.9 pg (28.0-33.3); Mean Corpuscular Volume 95.9 fL (83.0-100.0); Mean Platelet Volume 10.4 fL (9.4-12.4); Nucleated Red Blood Cells 0.3 /100 WBC (0); Platelet Count 253 K/mcL (140-400); Red Blood Count 2.43 M/mcL (4.19-5.50); Red Cell Distribution Width 14.2 % (11.5-14.5)
[2016-12-28 05:14] LABS: Albumin/Globulin Ratio 0.5 (1.1-2.2); Alkaline Phosphatase 110 Units/L (38-126); Aspartate Amino Transferase 29 Units/L (5-34); BUN/Creatinine Ratio 12 (6-26); Calcium 7.9 mg/dL (8.6-10.8); Carbon Dioxide 22 mEq/L (19-29); Chloride 105 mEq/L (98-109); Globulin 3.8 g/dL (2.4-3.5); Glucose 108 mg/dL (70-99); Osmolality,Calculated 298 (280-300); Potassium 3.1 mEq/L (3.5-4.5); Sodium 138 mEq/L (136-145); Total Protein 5.6 g/dL (6.0-8.3); eGFR For African Americans 20 (> 60); eGFR For Non-African Americans 16 (> 60)
[2016-12-28 05:15] LABS: Alanine Aminotransferase < 6 Units/L (0-55); Albumin 1.8 g/dL (3.5-5.0); Blood Urea Nitrogen 45 mg/dL (8-26)
[2016-12-28 05:22] LABS: Anisocytosis 1+ (Not Present); Lymphocytes # 1.8 K/mcL (0.6-4.6); Monocytes # 0.9 K/mcL (0.0-1.3); Neutrophils # 11.6 K/mcL (1.6-8.9)
[2016-12-28 05:23] LABS: Large Platelets Present (Not Present); Macrocytosis Present (Not Present); Platelet Estimate Normal (Normal); Polychromasia 1+ (Not Present); Reactive Lymphocytes Present (Not Present)
[2016-12-28] MEDS: Pantoprazole 40 MG VIAL IVP SCH (06:16)
[2016-12-28] MEDS: *HR* Heparin 5,000 UNIT/ML VIAL SQ SCH ×2 (06:16→17:23)
[2016-12-28] MEDS: *HR* OxyCODONE/APAP 5/325 TABLET PO PRN ×3 (06:18→21:09)
[2016-12-28] MEDS: Insulin LISPRO 300 UNITS/3 ML VIAL SQ SCH ×4 (07:54→21:10)
[2016-12-28] MEDS: *HR* Amiodarone 200 MG TABLET PO SCH (08:00)
[2016-12-28] MEDS: Aspirin 81 MG TAB.CHEW PO SCH (08:00)
[2016-12-28] MEDS: Docusate Oral Soln 100 MG/10 ML UDC PO SCH ×2 (08:01→21:10)
[2016-12-28] MEDS: Nicotine 21 MG PATCH.TD24 TD SCH (08:01)
[2016-12-28] MEDS ORDERED: 0.9 % Sodium Chloride 250 ML IV PRN (08:09)
--- NOTE | 2016-12-28 08:09 | Nephrology Progress Note ---
Date of Encounter: 12/28/16 Time of Encounter: 08:07 - Assessment and Plan (1) Chronic kidney disease, stage IV (severe) Current Visit: Yes Status: Acute Patient has acute kidney injury superimposed on chronic kidney disease following emergent CABG. patient remains dialysis dependent. He may be at end- stage renal disease. Patient will undergo dialysis today. He has been started on Aranesp for his anemia. Iron saturation is low so he will receive parenteral iron. Potassium is 3.1 so he will dialyze on a 4K bath. (2) Benign hypertension with chronic kidney disease, stage IV Current Visit: Yes Status: Acute (3) CAD (coronary artery disease) Current Visit: Yes Status: Acute Qualifiers: Coronary Disease-Associated Artery/Lesion type: [place] artery [place] vs. transplanted heart: [place] heart Associated angina: with unstable angina Qualified Code(s): I25.110 - Atherosclerotic heart disease of [place] coronary artery with unstable angina pectoris (4) STEMI (ST elevation myocardial infarction) Current Visit: Yes Status: Acute Qualifiers: Involved coronary artery: left main coronary artery Qualified Code(s): I21.01 - ST elevation (STEMI) myocardial infarction involving left main coronary artery Subjective Principal diagnosis: Left cerebral hemispheric dysfunction Interval history: Patient reports no new complaints. He still has not recovered much motor function in his right upper extremity. He remains dialysis dependent. He will undergo dialysis today. Objective - Vital Signs Vital signs: Vital Signs Temp Pulse Resp BP Pulse Ox 12/28/16 07:43 98.3 F 77 18 140/61 93 L 12/28/16 06:21 95 12/28/16 03:57 16 90 L 12/28/16 03:55 98.5 F 78 17 140/60 89 L 12/28/16 00:20 98 F 74 13 145/61 95 12/27/16 23:35 18 95 12/27/16 20:10 97.7 F 77 17 141/64 94 L 12/27/16 19:57 18 96 12/27/16 16:16 16 91 L 12/27/16 16:15 98.3 F 72 16 136/68 91 L 12/27/16 15:00 73 12/27/16 11:36 75 12/27/16 11:32 16 91 L 12/27/16 11:24 98.2 F 73 16 123/57 91 L 12/27/16 08:53 127/55 Intake and Output 12/27/16 12/28/16 12/28/16 23:59 07:59 15:59 Intake Total 200 / 200 0 / 0 Output Total 150 / 150 325 / 325 Balance 50 / 50 -325 / -325 Intake: Oral 200 / 200 0 / 0 Output: Urine 150 / 150 325 / 325 Other: Stool Size Moderate Stool Consistency loose Stool Color Brown Yellow Weight 73.5 kg Blood Glucose* 132 111 Patient Weight 12/28/16 23:59 Weight 73.5 kg - General Appearance Exam: Patient is alert and oriented. He is in no acute distress. Lungs breath sounds otherwise clear. Heart regular rate and rhythm with a 2/6.ejection murmur. Abdomen is benign. There is mild lower extremity swelling. There is weakness of the right upper extremity. There is an AV fistula in the right upper extremity. - Lab 12/28/16 04:05 12/28/16 04:05 Most recent lab results ABG pH 7.34 pH Units (7.32-7.45) 12/20/16 20:00 ABG pCO2 40 mmHg (35-45) 12/20/16 20:00 ABG pO2 65 mmHg (85-104) L 12/20/16 20:00 ABG HCO3 21.6 mEQ/L (21-27) 12/20/16 20:00 ABG O2 Saturation 91 % (95-98) L 12/20/16 20:00 Calcium 7.9 mg/dL (8.6-10.8) L 12/28/16 04:05 Magnesium 2.4 mg/dL (1.6-2.6) 12/20/16 04:14 - VTE Documentation of Mechanical Device: Graduated compression elastic hosiery Consult Discharge Plan - Plan Referrals: Corina Lopez MD [Partnered Physician] - 02/02/17 1:00 pm [facility] [Primary Care Provider[facility] - 01/05/17 3:30 pm
[2016-12-28] MEDS ORDERED: Ferumoxytol 510 MG in 0.9 % Sodium Chloride 100 ML IVPB ONE (08:11)
--- NOTE | 2016-12-28 12:49 | Cardiothoracic Progress Note ---
Date of Encounter: 12/28/16 Time of Encounter: 12:47 - Assessment and plan (1) STEMI (ST elevation myocardial infarction) Current Visit: Yes Status: Acute He is to undergo dialysis today. Eventually, he will need to be placed in a rehabilitation facility. Qualifiers: Involved coronary artery: left main coronary artery Qualified Code(s): I21.01 - ST elevation (STEMI) myocardial infarction involving left main coronary artery - Subjective Interval history: The patient has no complaints. Vital Signs, Last 4 Hours Temp Pulse Resp BP Pulse Ox 12/28/16 11:40 98.6 F 71 18 129/62 93 L 12/28/16 11:36 18 140/61 93 L 12/28/16 11:00 71 12/28/16 09:00 78 Oxgyen Flow Rate Oxygen Flow Rate (LPM) 2 Clinical Data, last 8 Hours Output, Urine Amount 100 Weight 12/26/16 12/27/16 12/28/16 23:59 23:59 23:59 Weight 74 kg 73.1 kg 73.5 kg Lungs are clear to percussion and auscultation. Heart is in a normal sinus rhythm. All incisions are healing well without signs of infection and the sternum is stable. He is still unable to move his right arm, but moves all 3 other extremities well. - Labs 12/28/16 04:05 12/28/16 04:05 Lab Results, Last 24 hours 12/28/16 12/28/16 04:05 04:05 WBC 14.9 H Hgb 7.5 L Hct 23.3 L Plt Count 253 Sodium 138 Potassium 3.1 L Chloride 105 Carbon Dioxide 22 BUN 45 H D Creatinine 3.72 H Glucose 108 H Calcium 7.9 L Total Bilirubin 1.0 AST 29 ALT < 6 Alkaline Phosphatase 110 - VTE Documentation of Mechanical Device: Graduated compression elastic hosiery Consult Discharge Plan - Plan Referrals: Corina Lopez MD [Partnered Physician] - 02/02/17 1:00 pm [facility] [Primary Care Provider] - 01/05/17 3:30 pm
[2016-12-29] MEDS: *HR* OxyCODONE/APAP 5/325 TABLET PO PRN ×4 (04:10→21:23)
[2016-12-29 05:08] LABS: Basophils % 0.1 %; Eosinophils # 0.5 K/mcL (0.0-0.6); Eosinophils % 3.1 %; Hematocrit 23.7 % (37.5-50.1); Hemoglobin 7.6 g/dL (12.9-16.9); Immature Granulocytes % 1.7 % (0-4); Immature Platelets 4.9 % (1.1-6.1); Lymphocytes # 1.5 K/mcL (0.6-4.6); Lymphocytes % 10.3 %; Mean Corpuscular HGB Conc 32.1 g/dL (31.6-35.5); Mean Corpuscular Hemoglobin 30.9 pg (28.0-33.3); Mean Corpuscular Volume 96.3 fL (83.0-100.0); Mean Platelet Volume 10.1 fL (9.4-12.4); Monocytes # 1.8 K/mcL (0.0-1.3); Monocytes % 12.4 %; Neutrophils # 10.6 K/mcL (1.6-8.9); Nucleated Red Blood Cells 0.2 /100 WBC (0); Platelet Count 322 K/mcL (140-400); Red Blood Count 2.46 M/mcL (4.19-5.50); Red Cell Distribution Width 14.1 % (11.5-14.5); Segmented Neutrophils % 72.4 %
[2016-12-29] MEDS: *HR* Heparin 5,000 UNIT/ML VIAL SQ SCH ×2 (06:09→18:40)
[2016-12-29] MEDS: Pantoprazole 40 MG VIAL IVP SCH (06:09)
[2016-12-29 06:20] LABS: Calcium 8.2 mg/dL (8.6-10.8); Potassium 3.5 mEq/L (3.5-4.5)
--- NOTE | 2016-12-29 06:58 | Cardiothoracic Progress Note ---
Date of Encounter: 12/29/16 Time of Encounter: 06:56 - Assessment and plan (1) STEMI (ST elevation myocardial infarction) Current Visit: Yes Status: Acute The patient had dialysis yesterday. Hopefully, he can be discharged to a rehabilitation facility soon Qualifiers: Involved coronary artery: left main coronary artery Qualified Code(s): I21.01 - ST elevation (STEMI) myocardial infarction involving left main coronary artery - Subjective Interval history: The patient has no complaints. Vital Signs, Last 4 Hours Temp Pulse Resp BP Pulse Ox 12/29/16 04:00 98.1 F 71 17 146/62 93 L Oxgyen Flow Rate Oxygen Flow Rate (LPM) 2 Clinical Data, last 8 Hours Output, Urine Amount 100 Weight 12/27/16 12/28/16 12/29/16 23:59 23:59 23:59 Weight 73.1 kg 73.5 kg Lungs are clear to percussion and auscultation. Heart is in a normal sinus rhythm. All incisions are healing well without signs of infection and the sternum is stable. - Labs 12/29/16 04:05 12/29/16 04:05 Lab Results, Last 24 hours 12/29/16 12/29/16 04:05 04:05 WBC 14.7 H Hgb 7.6 L Hct 23.7 L Plt Count 322 Sodium 139 Potassium 3.5 Chloride 103 Carbon Dioxide 24 BUN 30 H D Creatinine 2.80 H Glucose 106 H Calcium 8.2 L - VTE Documentation of Mechanical Device: Graduated compression elastic hosiery Consult Discharge Plan - Plan Referrals: Corina Lopez MD [Partnered Physician] - 02/02/17 1:00 pm [facility] [Primary Care Provider] - 01/05/17 3:30 pm
[2016-12-29] MEDS: Aspirin 81 MG TAB.CHEW PO SCH (08:06)
[2016-12-29] MEDS: Docusate Oral Soln 100 MG/10 ML UDC PO SCH ×2 (08:07→21:24)
[2016-12-29] MEDS: *HR* Amiodarone 200 MG TABLET PO SCH (08:07)
[2016-12-29] MEDS: Nicotine 21 MG PATCH.TD24 TD SCH (08:07)
[2016-12-29] MEDS: Insulin LISPRO 300 UNITS/3 ML VIAL SQ SCH ×4 (08:08→21:24)
--- NOTE | 2016-12-29 08:22 | Nephrology Progress Note ---
Date of Encounter: 12/29/16 Time of Encounter: 08:20 - Assessment and Plan (1) Chronic kidney disease, stage IV (severe) Current Visit: Yes Status: Acute Patient has acute kidney injury superimposed on chronic kidney disease following emergent CABG. the patient now has end-stage renal disease. He will continue to receive dialysis every Monday. We are in the process of arranging outpatient dialysis prior to his discharge from the hospital. (2) Benign hypertension with chronic kidney disease, stage IV Current Visit: Yes Status: Acute (3) CAD (coronary artery disease) Current Visit: Yes Status: Acute Qualifiers: Coronary Disease-Associated Artery/Lesion type: [place] artery [place] vs. transplanted heart: [place] heart Associated angina: with unstable angina Qualified Code(s): I25.110 - Atherosclerotic heart disease of [place] coronary artery with unstable angina pectoris (4) STEMI (ST elevation myocardial infarction) Current Visit: Yes Status: Acute Qualifiers: Involved coronary artery: left main coronary artery Qualified Code(s): I21.01 - ST elevation (STEMI) myocardial infarction involving left main coronary artery Subjective Principal diagnosis: Left cerebral hemispheric dysfunction Interval history: Patient reports no new complaints. He still has paralysis of the right arm. He status post dialysis yesterday. He is hemodynamically stable. Urine output is approximately 500 mL per day. Objective - Vital Signs Vital signs: Vital Signs Temp Pulse Resp BP Pulse Ox 12/29/16 08:09 16 94 L 12/29/16 07:31 98.1 F 71 16 137/60 93 L 12/29/16 04:00 98.1 F 71 17 146/62 93 L 12/28/16 23:45 98.0 F 66 14 128/57 95 12/28/16 23:42 16 95 12/28/16 20:16 20 94 L 12/28/16 19:50 98.6 F 76 18 127/53 93 L 12/28/16 17:00 77 12/28/16 16:57 98.3 F 77 18 133/58 92 L 12/28/16 16:20 98.6 F 18 133/57 12/28/16 16:10 125/60 12/28/16 15:55 131/57 12/28/16 15:40 123/60 12/28/16 15:25 123/61 12/28/16 15:10 134/60 12/28/16 14:55 135/76 12/28/16 14:40 131/54 12/28/16 14:25 126/59 12/28/16 14:10 132/57 12/28/16 13:55 133/58 12/28/16 13:40 105/78 12/28/16 13:25 120/55 12/28/16 13:10 98.6 F 18 118/55 12/28/16 11:40 98.6 F 71 18 129/62 93 L 12/28/16 11:36 18 140/61 93 L 12/28/16 11:00 71 12/28/16 09:00 78 12/28/16 08:29 18 93 L Intake and Output 12/28/16 12/29/16 12/29/16 23:59 07:59 15:59 Intake Total 700 / 700 Output Total 3100 / 3100 100 / 100 Balance -2400 / -2400 -100 / -100 Intake: Oral 700 / 700 Output: Urine 100 / 100 100 / 100 Total Dialysis Output 3000 / 3000 Other: Stool Size Small Stool Consistency loose Stool Color Brown # Bowel Movements 1 Blood Glucose* 114 109 Hemodialysis Net Fluid 2500 Removed (mL) - General Appearance Exam: Patient is alert and oriented. He is in no acute distress. Lungs breath sounds. Heart regular rhythm. Abdomen is benign. There is less lower extremity swelling. There is weakness and edema of the right upper extremity. There is an AV fistula present in the right upper extremity. - Lab 12/29/16 04:05 12/29/16 04:05 Most recent lab results ABG pH 7.34 pH Units (7.32-7.45) 12/20/16 20:00 ABG pCO2 40 mmHg (35-45) 12/20/16 20:00 ABG pO2 65 mmHg (85-104) L 12/20/16 20:00 ABG HCO3 21.6 mEQ/L (21-27) 12/20/16 20:00 ABG O2 Saturation 91 % (95-98) L 12/20/16 20:00 Calcium 8.2 mg/dL (8.6-10.8) L 12/29/16 04:05 Magnesium 2.4 mg/dL (1.6-2.6) 12/20/16 04:14 - VTE Documentation of Mechanical Device: Graduated compression elastic hosiery Consult Discharge Plan - Plan Referrals: Corina Lopez MD [Partnered Physician] - 02/02/17 1:00 pm [facility]P [Primary Care Provider] - 01/05/17 3:30 pm
[2016-12-30] MEDS: *HR* OxyCODONE/APAP 5/325 TABLET PO PRN ×2 (05:02→10:35)
[2016-12-30 05:47] LABS: Basophils % 0.1 %; Eosinophils # 0.4 K/mcL (0.0-0.6); Hematocrit 22.7 % (37.5-50.1); Hemoglobin 7.3 g/dL (12.9-16.9); Lymphocytes # 1.4 K/mcL (0.6-4.6); Lymphocytes % 9.7 %; Mean Corpuscular HGB Conc 32.2 g/dL (31.6-35.5); Mean Corpuscular Hemoglobin 30.9 pg (28.0-33.3); Mean Corpuscular Volume 96.2 fL (83.0-100.0); Mean Platelet Volume 10.3 fL (9.4-12.4); Monocytes # 1.8 K/mcL (0.0-1.3); Monocytes % 12.6 %; Neutrophils # 10.4 K/mcL (1.6-8.9); Nucleated Red Blood Cells 0.3 /100 WBC (0); Platelet Count 342 K/mcL (140-400); Red Blood Count 2.36 M/mcL (4.19-5.50); Red Cell Distribution Width 14.1 % (11.5-14.5); Segmented Neutrophils % 71.6 %
[2016-12-30 06:08] LABS: Albumin/Globulin Ratio 0.4 (1.1-2.2); Alkaline Phosphatase 129 Units/L (38-126); Aspartate Amino Transferase 33 Units/L (5-34); BUN/Creatinine Ratio 11 (6-26); Bilirubin,Total 0.8 mg/dL (0.2-1.2); Blood Urea Nitrogen 41 mg/dL (8-26); Calcium 8.2 mg/dL (8.6-10.8); Carbon Dioxide 23 mEq/L (19-29); Chloride 101 mEq/L (98-109); Globulin 4.3 g/dL (2.4-3.5); Glucose 113 mg/dL (70-99); Osmolality,Calculated 293 (280-300); Potassium 3.5 mEq/L (3.5-4.5); Sodium 136 mEq/L (136-145); eGFR For African Americans 21 (> 60); eGFR For Non-African Americans 17 (> 60)
[2016-12-30 06:09] LABS: Alanine Aminotransferase < 6 Units/L (0-55); Albumin 1.7 g/dL (3.5-5.0)
[2016-12-30] MEDS: Pantoprazole 40 MG VIAL IVP SCH (06:14)
[2016-12-30] MEDS: *HR* Heparin 5,000 UNIT/ML VIAL SQ SCH (06:14)
[2016-12-30 07:45] VITALS: BP 139/59
[2016-12-30] MEDS: Insulin LISPRO 300 UNITS/3 ML VIAL SQ SCH (08:27)
[2016-12-30] MEDS: *HR* Amiodarone 200 MG TABLET PO SCH (08:27)
[2016-12-30] MEDS: Aspirin 81 MG TAB.CHEW PO SCH (08:28)
[2016-12-30] MEDS: Nicotine 21 MG PATCH.TD24 TD SCH (08:28)
[2016-12-30] MEDS: Docusate Oral Soln 100 MG/10 ML UDC PO SCH (08:28)
[2016-12-30] MEDS ORDERED: 0.9 % Sodium Chloride 250 ML IV PRN (09:42)
--- NOTE | 2016-12-30 09:42 | Nephrology Progress Note ---
Date of Encounter: 12/30/16 Time of Encounter: 09:41 - Assessment and Plan (1) Chronic kidney disease, stage IV (severe) Current Visit: Yes Status: Acute Patient has acute kidney injury superimposed on chronic kidney disease following emergent CABG. the patient now has end-stage renal disease. The patient will undergo dialysis today. Outpatient dialysis arrangements are in place. I anticipate the patient should be able to be discharged later today. (2) Benign hypertension with chronic kidney disease, stage IV Current Visit: Yes Status: Acute (3) CAD (coronary artery disease) Current Visit: Yes Status: Acute Qualifiers: Coronary Disease-Associated Artery/Lesion type: [place] artery [place] vs. transplanted heart: [place] heart Associated angina: with unstable angina Qualified Code(s): I25.110 - Atherosclerotic heart disease of [place] coronary artery with unstable angina pectoris (4) STEMI (ST elevation myocardial infarction) Current Visit: Yes Status: Acute Qualifiers: Involved coronary artery: left main coronary artery Qualified Code(s): I21.01 - ST elevation (STEMI) myocardial infarction involving left main coronary artery Subjective Principal diagnosis: Left cerebral hemispheric dysfunction Interval history: Patient reports no new complaints. He still has paralysis of the right arm. Patient scheduled for dialysis today. Outpatient dialysis arrangements have been made. Objective - Vital Signs Vital signs: Vital Signs Temp Pulse Resp BP Pulse Ox 12/30/16 08:34 74 12/30/16 07:50 18 93 L 12/30/16 07:42 98.6 F 73 20 139/59 93 L 12/30/16 03:45 98.2 F 75 17 140/56 94 L 12/30/16 03:31 16 93 L 12/30/16 00:26 16 93 L 12/29/16 23:00 98.7 F 69 18 138/58 94 L 12/29/16 19:59 98.1 F 74 18 143/66 94 L 12/29/16 19:42 18 92 L 12/29/16 16:05 98.2 F 71 18 132/55 93 L 12/29/16 15:48 16 92 L 12/29/16 15:17 70 12/29/16 12:34 70 12/29/16 11:37 98.3 F 71 18 130/58 92 L 12/29/16 11:16 18 93 L Intake and Output 12/29/16 12/30/16 12/30/16 23:59 07:59 15:59 Intake Total 1120 / 1120 120 / 120 Output Total 100 / 100 75 / 75 100 / 100 Balance 1020 / 1020 -75 / -75 Intake: Oral 1120 / 1120 120 / 120 Output: Urine 100 / 100 75 / 75 100 / 100 Other: Meal Breakfast Percent of Meal Consumed 100% Blood Glucose* 124 125 - General Appearance Exam: Patient is alert and oriented. He is in no acute distress. Lungs breath sounds otherwise clear. Heart regular rate and rhythm. Abdomen is benign. There is mild lower extremity swelling. There is paresis of the right upper extremity along with some swelling. An AV fistula is present in the right upper extremity. - Lab 12/30/16 05:00 12/30/16 05:00 Most recent lab results ABG pH 7.34 pH Units (7.32-7.45) 12/20/16 20:00 ABG pCO2 40 mmHg (35-45) 12/20/16 20:00 ABG pO2 65 mmHg (85-104) L 12/20/16 20:00 ABG HCO3 21.6 mEQ/L (21-27) 12/20/16 20:00 ABG O2 Saturation 91 % (95-98) L 12/20/16 20:00 Calcium 8.2 mg/dL (8.6-10.8) L 12/30/16 05:00 Magnesium 2.4 mg/dL (1.6-2.6) 12/20/16 04:14 - VTE Documentation of Mechanical Device: Graduated compression elastic hosiery Consult Discharge Plan - Plan Referrals: Antonio Muller MD [Partnered Physician] - (il will have to approve, for him to see the bro[employer] hat[employer] manager) Corina Lopez MD [Partnered Physician] - 02/02/17 1:00 pm [facility] [Primary Care Provider[facility] - ([facility]ING [facility] NO PCP APPOINTMENT NEEDED)
--- NOTE | 2016-12-30 10:28 | Discharge Summary ---
- Discharge Diagnosis (1) STEMI (ST elevation myocardial infarction) Status: Acute Qualifiers: Involved coronary artery: left main coronary artery Qualified Code(s): I21.01 - ST elevation (STEMI) myocardial infarction involving left main coronary artery - Discharge Medications Home Medications: Amlodipine Besylate 10 mg PO DAILY 12/20/16 [History] Aspirin 81 mg PO DAILY 12/20/16 [History] Atorvastatin Calcium [Lipitor] 40 mg PO DAILY 12/20/16 [History] Hydralazine HCl 100 mg PO TID 12/20/16 [History] Metoprolol [Lopressor] 50 mg PO BID 12/20/16 [History] Allergies/Adverse Reactions: Allergies No Known Allergies Allergy (Unverified 12/19/16 15:55) Date of admission: 12/19/16 16:34 [facility] care [facility]: [facility] Consults: 12/19/16 21:53 Consult to Cardiac Rehabilitation-Phase1 [CONS] Routine Comment: Reason for Consult: Post open heart Call Completed: Yes 12/20/16 08:52 Consult to Nephrology [CONS] Routine Consulting Provider: [facility] Reason for Consult: CKD, Stage IV Time Notified: 08:30 Call Completed: Yes 12/21/16 15:27 Consult to Neurology [CONS] Routine Consulting Provider: Neurology [facility] Reason for Consult: Right upper extremity paralysis. Time Notified: 15:30 Call Completed: Yes 12/22/16 06:39 Consult to Speech Therapy [CONS] Routine Comment: Evaluate, develop and implement POC Reason for Consult: Swallow evaluation. Call Completed: No 12/22/16 09:30 Consult to Dialysis [CONS] ONCE 12/23/16 12:30 Consult to Dialysis [CONS] ONCE 12/23/16 19:14 Consult to Occupational Therapy [CONS] Routine Comment: Evaluate, develop and implement POC Consult to Physical Therapy [CONS] Routine Comment: Evaluate, develop and implement POC 12/26/16 12:15 Consult to Dialysis [CONS] ONCE 12/27/16 09:03 Consult to Business Professor [CONS] Routine Reason for SW Consult: Therapy is recommending ECF placement. 12/28/16 08:15 Consult to Dialysis [CONS] ONCE 12/30/16 09:45 Consult to Dialysis [CONS] ONCE - Patient Status Condition: Critical - Discharge Instructions Follow Up With: Antonio Muller MD [Partnered Physician] - (va will have to approve, for him to see the horticulture supervisor) Corina Lopez MD [Partnered Physician] - 02/02/17 1:00 pm [facility],PCP [Primary Care Provider] - (PATIENT IS GOING TO [facility] NO PCP APPOINTMENT NEEDED) - Hospital Course Hospital course: Mr. Hargrove is a 66 year old male - Time Spent with Patient Total time spent providing and/or coordinating discharge services: Physical Examination Vital Signs, Last 4 Hours Temp Pulse Resp BP Pulse Ox 12/30/16 08:34 74 12/30/16 07:50 18 93 L 12/30/16 07:42 98.6 F 73 20 139/59 93 L - VTE Documentation of Mechanical Device: Graduated compression elastic hosiery
--- NOTE | 2016-12-30 10:40 | Discharge Summary ---
Date of Encounter: 12/30/16 Time of Encounter: 10:35 - Discharge Diagnosis (1) STEMI (ST elevation myocardial infarction) Priority: Primary Status: Acute Qualifiers: Involved coronary artery: left main coronary artery Qualified Code(s): I21.01 - ST elevation (STEMI) myocardial infarction involving left main coronary artery - Discharge Medications Prescriptions: OxyCODONE/APAP 5/325 [Percocet 5/325 MG] 1 each PO Q4HR PRN #30 tablet PRN Reason: Severe Pain Amiodarone [Cordarone] 200 mg PO DAILY #30 tablet Nicotine Patch [Nicoderm] 21 mg TD DAILY #14 patch.td24 Home Medications: Amlodipine Besylate 10 mg PO DAILY 12/20/16 [History] Aspirin 81 mg PO DAILY 12/20/16 [History] Atorvastatin Calcium [Lipitor] 40 mg PO DAILY 12/20/16 [History] Hydralazine HCl 100 mg PO TID 12/20/16 [History] Metoprolol [Lopressor] 50 mg PO BID 12/20/16 [History] Amiodarone [Cordarone] 200 mg PO DAILY #30 tablet 12/30/16 [Rx] Nicotine Patch [Nicoderm] 21 mg TD DAILY #14 patch.td24 12/30/16 [Rx] OxyCODONE/APAP 5/325 [Percocet 5/325 MG] 1 each PO Q4HR PRN #30 tablet 12/30/16 [Rx] Allergies/Adverse Reactions: Allergies No Known Allergies Allergy (Unverified 12/19/16 15:55) Date of admission: 12/19/16 16:34 Primary care physician: [facility]CP [facility] Consults: 12/19/16 21:53 Consult to Cardiac Rehabilitation-Phase1 [CONS] Routine Comment: Reason for Consult: Post open heart Call Completed: Yes 12/20/16 08:52 Consult to Nephrology [CONS] Routine Consulting Provider: [facility] Reason for Consult: CKD, Stage IV Time Notified: 08:30 Call Completed: Yes 12/21/16 15:27 Consult to Neurology [CONS] Routine Consulting Provider: Neurology [facility] Reason for Consult: Right upper extremity paralysis. Time Notified: 15:30 Call Completed: Yes 12/22/16 06:39 Consult to Speech Therapy [CONS] Routine Comment: Evaluate, develop and implement POC Reason for Consult: Swallow evaluation. Call Completed: No 12/22/16 09:30 Consult to Dialysis [CONS] ONCE 12/23/16 12:30 Consult to Dialysis [CONS] ONCE 12/23/16 19:14 Consult to Occupational Therapy [CONS] Routine Comment: Evaluate, develop and implement POC Consult to Physical Therapy [CONS] Routine Comment: Evaluate, develop and implement POC 12/26/16 12:15 Consult to Dialysis [CONS] ONCE 12/27/16 09:03 Consult to [employer] Sales [employer] Service Supervisor [CONS] Routine Reason for SW Consult: Therapy is recommending ECF placement. 12/28/16 08:15 Consult to Dialysis [CONS] ONCE 12/30/16 09:45 Consult to Dialysis [CONS] ONCE Procedure(s) Performed: December 19, 2016. Coronary artery bypass grafting 5, utilizing the left internal mammary artery. Discharging clinician: Koko Dempsey Anticipated date of discharge: 12/30/16 - Patient Status Disposition: Transfer Inpatient Rehab Fac Condition: Critical Functional capacity at discharge: independent ambulation Overall status at discharge: patient is progressing back to baseline - Discharge Instructions Follow Up With: Antonio Muller MD [Partnered Physician] - (vt will have to approve, for him to see the sign erector and repairer) Corina Lopez MD [Partnered Physician] - 02/02/17 1:00 pm [facility],PCP [Primary Care Provider] - (PATIENT IS GOING TO ECF NO PCP APPOINTMENT NEEDED) - Hospital Course Hospital course: Mr. Hargrove is a 66 year old male Patient is a 66-year-old gentleman with a history of hypertension and hypercholesterolemia. He also has a history of peripheral artery disease and he presented with a myocardial infarction. Cardiac catheterization revealed triple- vessel disease and he was referred for surgery. On December 19, 2016, Dr. Lopez took the patient to the operating room for coronary artery bypass grafting 5, utilizing his left internal mammary artery. The patient was seen by nephrology postoperatively for chronic kidney disease and was started on dialysis. He had a postoperative weakness in his right arm and was seen by neurology. Initial CT scan revealed an old stroke, but no acute strokes. He was seen by speech therapy MRI scan did reveal some small strokes in his left cerebral and cerebellar hemispheres. Chest tubes had been removed. Pacing wires were also removed. Patient was transferred to the floor on December 25 where he remained stable. He otherwise did well and was discharged on December 30. At that time, he was afebrile. He was in a normal sinus rhythm. All incisions were healing well without signs of infection and the sternum was stable. He was discharged to an extended care facility for further rehabilitation. Discharge medications include Percocet for pain. I did check the [place] automated Rx reporting system. The patient had a 0 accumulated morphine equivalent. Appropriate precautions were given. The patient was given a one-week supply and he was postoperative. The patient was to avoid lifting over 10-15 pounds for 3 months. He was to walk as much as possible he was to avoid driving. He was on a chopped, soft diet with thin liquids. He was to follow up and see Dr. Lopez in the office in 4 weeks as directed. He was to follow up with sign erector and repairer as directed. [facility]. He was to call sooner for any difficulties. - Time Spent with Patient Total time spent providing and/or coordinating discharge services: Physical Examination Vital Signs, Last 4 Hours Temp Pulse Resp BP Pulse Ox 12/30/16 08:34 74 12/30/16 07:50 18 93 L 12/30/16 07:42 98.6 F 73 20 139/59 93 L Open Heart Registry Aspirin Cont/Prescribed at DC: Yes Beta Marcos Cont/Prescribed at DC: Yes Statin Cont/Prescribed at DC: Yes ROSLYN/ARB Cont/Prescribed at DC: Not indicated - VTE Documentation of Mechanical Device: Graduated compression elastic hosiery
--- NOTE | 2016-12-30 10:49 | Physician Discharge Referral ---
ExtendedCare Referral Info Transfer To: Rehabilitation facility Provider in Charge after Transfer: PCP Institutional Level of Care: Intermediate - MR - Diagnosis (1) STEMI (ST elevation myocardial infarction) Priority: Primary Status: Acute - Transfer Medications Prescriptions: OxyCODONE/APAP 5/325 [Percocet 5/325 MG] 1 each PO Q4HR PRN #30 tablet PRN Reason: Severe Pain Amiodarone [Cordarone] 200 mg PO DAILY #30 tablet Nicotine Patch [Nicoderm] 21 mg TD DAILY #14 patch.td24 Home Medications: Amlodipine Besylate 10 mg PO DAILY 12/20/16 [History] Aspirin 81 mg PO DAILY 12/20/16 [History] Atorvastatin Calcium [Lipitor] 40 mg PO DAILY 12/20/16 [History] Hydralazine HCl 100 mg PO TID 12/20/16 [History] Metoprolol [Lopressor] 50 mg PO BID 12/20/16 [History] Amiodarone [Cordarone] 200 mg PO DAILY #30 tablet 12/30/16 [Rx] Nicotine Patch [Nicoderm] 21 mg TD DAILY #14 patch.td24 12/30/16 [Rx] OxyCODONE/APAP 5/325 [Percocet 5/325 MG] 1 each PO Q4HR PRN #30 tablet 12/30/16 [Rx] Allergies/Adverse Reactions: Allergies No Known Allergies Allergy (Unverified 12/19/16 15:55) - Respiratory Orders Smoking Cessation: Smoking cessation has been advised. For more information, call the [place] Tobacco Quit Line at 2-882-GMLR-NOW. - Ancillary Orders May use pressure relief devices daily prn, May go on [place] w/family/respon democrat w /meds at nurse discretion PRN, May have alcoholic beverages, May consult with Dentist, Chief Dispatcher, Trimming Press Operator PRN - Advance Directives Code Status: Full Code - Mobility Orders Ambulate - Rehabiliation Orders Rehab Potential: Fair Rehab Orders: Sternal Precautions, ROM Exercises, Evaluation for Physical Therapy, Evaluation for Occupational Therapy, Evaluation for Speech Therapy - Treatments Skin tear care topically daily PRN per policy, May check for fecal impaction rectally daily PRN, Fleet enema rectally every other day PRN cleansing purposes (He is on a soft, chopped diet with thin liquids.) - Diet Orders Mechanical Soft CERTIFICATION: I certify that the transfer of the above named patient to an Extended Care Facility is necessary for the continuing treatment of the diagnosis listed. The above information is true and accurate reflection of patient's current condition. Confidential - Redisclosure prohibited without a patient's written consent.
== END 2016-12-30 12:09 | DRG 233 ==
LOC: EMEROO 15:10 → ICNU 15:12 → 2NNU 12-25 14:48
PROVIDERS: ADMIT Internal Medicine Cardiovascular Disease; ATTEND Thoracic Surgery (Cardiothoracic Vascular Surgery)

== ENCOUNTER 2017-01-06 13:56 | Inpatient (IN) ==
[2017-01-06 14:15] LABS: Basophils % 0.2 %; Eosinophils # 0.3 K/mcL (0.0-0.6); Eosinophils % 2.3 %; Hematocrit 29.6 % (37.5-50.1); Hemoglobin 9.3 g/dL (12.9-16.9); Immature Granulocytes % 1.1 % (0-4); Lymphocytes # 1.7 K/mcL (0.6-4.6); Lymphocytes % 11.7 %; Mean Corpuscular HGB Conc 31.4 g/dL (31.6-35.5); Mean Corpuscular Hemoglobin 31.4 pg (28.0-33.3); Monocytes # 1.1 K/mcL (0.0-1.3); Monocytes % 7.7 %; Neutrophils # 11.3 K/mcL (1.6-8.9); Nucleated Red Blood Cells 0.2 /100 WBC (0); Platelet Count 478 K/mcL (140-400); Red Blood Count 2.96 M/mcL (4.19-5.50); Red Cell Distribution Width 17.7 % (11.5-14.5)
[2017-01-06 14:20] LABS: INR 1.2; Prothrombin Time 13.5 Seconds (9.4-12.1)
[2017-01-06 14:22] LABS: Activated Partial Thrombo Time 40.5 Seconds (26.0-36.0)
--- NOTE | 2017-01-06 14:26 | Emergency Department Note ---
Disposition Clinical Impression: Elevated troponin Acute exacerbation of CHF (congestive heart failure) Qualifiers: Congestive heart failure type: unspecified congestive heart failure type Qualified Code(s): I50.9 - Heart failure, unspecified Dyspnea Qualifiers: Dyspnea type: shortness of breath Qualified Code(s): R06.02 - Shortness of breath CKD (chronic kidney disease) Qualifiers: Chronic kidney disease stage: stage 5 Qualified Code(s): N18.5 - Chronic kidney disease, stage 5 Disposition: Admitted As Inpatient Condition: Fair SOB HPI - General Chief Complaint: ED Shortness of Breath/Dyspnea Stated Complaint: short of breathness @ Dialysis Time Seen by Provider: 01/06/17 13:57 Source: patient, EMS Mode of arrival: EMS Limitations: no limitations Nursing Notes Reviewed: Yes Vital Signs Reviewed: Yes - History of Present Illness 66-year-old male history of CAD, hypertension, dialysis-dependent renal failure , status post CABG 3 weeks ago who presents to the ER with a chief complaint of shortness of breath. Patient states he started developing shortness of breath roughly 30 minutes prior to arrival while at dialysis. Patient reportedly had 30 minutes of dialysis and then was unable to tolerate anymore. EMS was called and patient was transported here. He denies any chest pain with this. He states that he just felt nervous and short of breath. He denies any recent illnesses. No sick contacts. Patient remained hypoxic on 4 L nasal cannula and was increased to 6 at the time of arrival. No other complaints. Pt Subjective Complaint: shortness of breath Onset (ago): Just FORESTRY HUNTER Severity: moderate Consistency/Duration: constant Improves with: oxygen Worsens with: nothing Known history of: other (CABG) Treatment prior to arrival: oxygen Cough present: No Sputum production: No Sputum Amount: None - Related Data Home oxygen amount: 4 liters Home Medications Medication Instructions Recorded Confirmed Amlodipine Besylate 10 mg PO DAILY 12/20/16 01/06/17 Aspirin 81 mg PO DAILY 12/20/16 01/06/17 Atorvastatin Calcium [Lipitor] 40 mg PO DAILY 12/20/16 01/06/17 Hydralazine HCl 100 mg PO TID 12/20/16 01/06/17 Metoprolol [Lopressor] 50 mg PO BID 12/20/16 01/06/17 Previous Rx's Medication Instructions Recorded Amiodarone [Cordarone] 200 mg PO DAILY #30 tablet 12/30/16 Nicotine Patch [Nicoderm] 21 mg TD DAILY #14 patch.td24 12/30/16 OxyCODONE/APAP 5/325 [Percocet 1 each PO Q4HR PRN #30 tablet 12/30/16 5/325 MG] Allergies Allergy/AdvReac Type Severity Reaction Status Date / Time No Known Allergies Allergy Unverified 12/19/16 15:55 All systems ED: reviewed and negative except as stated. Constitutional: Denies: fever Cardiovascular: Denies: chest pain, palpitations Respiratory: Reports: dyspnea. Denies: cough, wheezes Gastrointestinal: Denies: abdominal pain, nausea, vomiting Musculoskeletal: Denies: back pain, neck pain Past Medical History - Past Medical History Attestation: Yes The following information was validated with the patient. Source: patient Medical history: Reports: COPD, coronary artery disease, hyperlipidemia, hypertension, peripheral artery disease, renal disease Surgical history: Reports: appendectomy, cataract (Bilateral implants implantation.), vascular surgery (Aortobifemoral bypass.), other (Right upper extremity AV fistula formation. ) Psychiatric history: Reports: anxiety - Social History Smoking Status: Current every day smoker Smokeless Tobacco Status: No Alcohol use: Reports: rarely Drug use: Reports: none Physical Exam - General Limitations: no limitations General appearance: alert, in no apparent distress - Head Head exam: atraumatic, normocephalic, normal inspection - Eye Eye exam: Present: normal appearance, EOMI - ENT ENT exam: normal exam - Neck Neck exam: Present: normal inspection - Chest Chest inspection: Present: normal inspection, symmetric chest wall rise, other ( Patient has a midline vertical incision that is healing.) - Respiratory Respiratory exam: Present: respiratory distress, accessory muscle use, other ( Lungs are coarse bilaterally). Absent: wheezes, prolonged expiratory phase - Cardiovascular Cardiovascular exam: Present: regular rate, normal rhythm, normal heart sounds - Abdominal Exam Abdominal exam: Present: soft, Non-Tender. Absent: tenderness - Expanded Lower Extremity Exam Hip/Pelvis exam: Present: normal inspection, full ROM Upper leg exam: Present: normal inspection, full ROM Knee exam: Present: normal inspection, full ROM Lower leg exam: Present: normal inspection, full ROM Ankle exam: Present: normal inspection, full ROM Foot/toe exam: Present: normal inspection, full ROM - Neurological Exam Neurological exam: Present: alert - Psychiatric Psychiatric exam: Present: normal affect, normal mood - Skin Skin exam: Present: warm, dry, intact, normal color Course Course Narrative: Patient seen and examined. Vital signs reviewed. He is still hypoxic on 4 L here. We have attempted to 6 L. We have talked to respiratory therapy for BiPAP. Plan for patient as EKG, chest x-ray as well as basic labs including troponin and BNP. - Reevaluation(s) Reevaluation #1: Discussed results of lab work and imaging with the patient. Patient agreeable to staying in the hospital. He does report still making some urine so we will give him 40 of Lasix. - Consultations Consultation #1: I spoke with the veneer drier on-call Dr. Vazquez. EKG was reviewed. They report that the patient is not a STEMI and does not need emergent catheterization. Continue to trend troponins. They also report that there are no prior troponins to compare to and that his first troponin will not be too helpful since he is on dialysis and will still be elevated from his CABG. Vital Signs Temperature 97.6 F 01/06/17 13:58 Pulse Rate 57 01/06/17 13:58 Respiratory Rate 20 01/06/17 13:58 Blood Pressure 127/58 01/06/17 13:58 O2 Sat by Pulse Oximetry 93 L 01/06/17 13:58 Temperature 97.4 F L 01/06/17 17:36 Pulse Rate 54 01/06/17 17:36 Respiratory Rate 20 01/06/17 17:36 Blood Pressure 131/63 01/06/17 17:36 O2 Sat by Pulse Oximetry 94 L 01/06/17 17:36 Oxygen Delivery Oxygen Delivery Nasal Cannula Shortness of Breath/Dyspnea - [facility] Narrative Medical decision making narrative: 66-year-old male presents to the ER with a chief complaint of dyspnea. Patient is status post CABG 3 weeks ago. He reports shortness of breath prior to arrival at dialysis. He denies any chest pain. His EKG shows improvement from his previous STEMI however there are new T-wave inversions in V4 through V6. This case was discussed with cardiology who reviewed the EKGs and recommended serial troponins. Patient does have an increased oxygen requirement here at 5- 6 L. His chest x-ray shows concern for pulmonary edema suggesting congestive heart failure. His BNP is over 5000. Troponin is greater than 1. His creatinine is greater than 3 and he is dialysis dependent. Patient was given 40 mg of Lasix in the emergency department. Will be admitted to the hospital for continued management. - Lab Data Lab results reviewed: Yes I reviewed the patient's lab results. Result diagrams: 01/06/17 12:45 01/06/17 12:45 Lab Results 01/06/17 01/06/17 01/06/17 Range/Units 12:45 12:45 12:45 WBC 14.7 H (4.3-11.1) K/mcL RBC 2.96 L (4.19-5.50) M/mcL Hgb 9.3 L (12.9-16.9) g/dL Hct 29.6 L (37.5-50.1) % MCV 100.0 (83.0-100.0) fL MCH 31.4 (28.0-33.3) pg MCHC 31.4 L (31.6-35.5) g/dL RDW 17.7 H (11.5-14.5) % Plt Count 478 H (140-400) K/mcL MPV 10.0 (9.4-12.4) fL Immature Gran % 1.1 (0-4) % Seg Neutrophils % 77.0 % Lymphocytes % 11.7 % Monocytes % 7.7 % Eosinophils % 2.3 % Basophils % 0.2 % Neutrophils # 11.3 H (1.6-8.9) K/mcL Lymphocytes # 1.7 (0.6-4.6) K/mcL Monocytes # 1.1 (0.0-1.3) K/mcL Eosinophils # 0.3 (0.0-0.6) K/mcL Basophils # 0.0 (0.0-0.2) K/mcL Nucleated RBCs/100 WBC 0.2 H (0) /100 WBC PT (9.4-12.1) Seconds INR APTT (26.0-36.0) Seconds Sodium 137 (136-145) mEq/L Potassium 3.8 (3.5-4.5) mEq/L Chloride 99 (98-109) mEq/L Carbon Dioxide 22 (19-29) mEq/L BUN 37 H (8-26) mg/dL Creatinine 3.38 H (0.72-1.25) mg/dL Est GFR ( Amer) 22 L (> 60) Est GFR (Non-Af Amer) 18 L (> 60) BUN/Creatinine Ratio 11 (6-26) Glucose 93 (70-99) mg/dL Calculated Osmolality 292 (280-300) Calcium 8.8 (8.6-10.8) mg/dL Troponin I 1.09 H* (0-0.03) ng/mL B-Natriuretic Peptide (0-100) pg/mL 01/06/17 01/06/17 Range/Units 12:45 12:45 WBC (4.3-11.1) K/mcL RBC (4.19-5.50) M/mcL Hgb (12.9-16.9) g/dL Hct (37.5-50.1) % MCV (83.0-100.0) fL MCH (28.0-33.3) pg MCHC (31.6-35.5) g/dL RDW (11.5-14.5) % Plt Count (140-400) K/mcL MPV (9.4-12.4) fL Immature Gran % (0-4) % Seg Neutrophils % % Lymphocytes % % Monocytes % % Eosinophils % % Basophils % % Neutrophils # (1.6-8.9) K/mcL Lymphocytes # (0.6-4.6) K/mcL Monocytes # (0.0-1.3) K/mcL Eosinophils # (0.0-0.6) K/mcL Basophils # (0.0-0.2) K/mcL Nucleated RBCs/100 WBC (0) /100 WBC PT 13.5 H (9.4-12.1) Seconds INR 1.2 APTT 40.5 H (26.0-36.0) Seconds Sodium (136-145) mEq/L Potassium (3.5-4.5) mEq/L Chloride (98-109) mEq/L Carbon Dioxide (19-29) mEq/L BUN (8-26) mg/dL Creatinine (0.72-1.25) mg/dL Est GFR ( Amer) (> 60) Est GFR (Non-Af Amer) (> 60) BUN/Creatinine Ratio (6-26) Glucose (70-99) mg/dL Calculated Osmolality (280-300) Calcium (8.6-10.8) mg/dL Troponin I (0-0.03) ng/mL B-Natriuretic Peptide > 5000 H (0-100) pg/mL - Radiology Data Radiology results reviewed: Yes I reviewed the patient's radiology results. Chest X-Ray 01/06/17 14:06 IMPRESSION: Findings are suggestive of congestive heart failure with increasing bilateral pleural effusions. D/ / Lauren Calderón MD / Lauren Calderón MD Interpreting Provider: Lauren Calderón MD - EKG Data EKG attestation: Yes I reviewed and interpreted this EKG. EKG results narrative: EKG demonstrates sinus bradycardia with a rate of 55 bpm. Normal axis. OR interval 169 QRS duration 117 QTC 434 there is the appearance of biphasic T waves in leads V1 through V3. There is T-wave inversion in lead V4 through V6. No ST elevations. Changes from previous EKG included improvement in ST elevations in lead aVL and [address] depressions in lead 3 there are no longer present. There are new T-wave inversions in lead V4 through V6 and biphasic T waves in V1 through V3. S.B.A.R. - S.B.A.R. Situation: Demographics, MOA Background: Presenting Complaint, Relevant PMH, Meds, & Allergies Assessment: Vital Signs, Course and respsone to treatment, Exam Concerns, Patient/Family Expectation, Pertinant Lab Results, Outstanding Labs Recommendation: Barrier(s) to disposition, Recommendation based on pending studies, treatments, or consults S.B.A.R. Report Given to: Dr. Archibald Attestation Statement - Attestation Attestation: For this encounter, I have reviewed the resident, HARVEST MANAGER, or PA documentation, treatment plan, and medical decision making; and I have had face to face time with this patient. 66-year-old male presents in respiratory distress. Patient states he was having a dialysis session when he acutely became short of breath. Patient states that he had associated nausea with diaphoresis at the time although he denies chest pain. Patient recently had a CABG performed within the past month and has had no complications until now. Patient satting 90% on 6 L nasal cannula. The ECG showed sinus bradycardia with possible ST elevation in V1 through 3 without reciprocal depressions. The resident showed the EKG directly to the veneer drier who was able to evaluate the EKG and recommended not activating the STEMI protocol. I requested BiPAP however the patient started to improve prior to initiating the treatment. Patient was seen satting 98% on 3 L and wished to forego BiPAP. Patient has a significantly elevated BNP and likely has acute decompensated congestive heart failure. Patient was given Lasix in the emergency department as he does produce some urine. Patient does have an elevation of his troponin however this is unclear if it is a continued elevation from his recent [facility] or if this is a new elevation. Patient was started on heparin and admitted to the hospitalist for further care and evaluation. Hospitalist spoke with the review scheduling coordinator who will take the patient to dialysis for removal of fluid. Patient comfortable with the plan for admission to hospital for continuation of care.
[2017-01-06 14:28] LABS: Calcium 8.8 mg/dL (8.6-10.8); Potassium 3.8 mEq/L (3.5-4.5)
[2017-01-06] MEDS ORDERED: Furosemide 40 MG/4 ML VIAL IVP ONE (14:58)
[2017-01-06] MEDS ORDERED: *HR* HYDROmorphone (PF) 1 MG/ML SYRINGE IVP PRN (17:33)
[2017-01-06] MEDS ORDERED: Naloxone 0.4 MG/ML INJ IVP PRN (17:33)
[2017-01-06] MEDS ORDERED: *HR* OxyCODONE/APAP 5/325 TABLET PO PRN (17:37)
--- NOTE | 2017-01-06 17:42 | Internal Med History&Physical ---
Date of Encounter: 01/07/17 Time of Encounter: 17:41 Assessment and Plan (1) Dyspnea Current visit: Yes Status: Acute Shortness of breath: Etiology is multifactorial, A)possible incomplete dialysis. B) elevated blood pressure. C) post cardiomyotomy syndrome. ? [place] syndrome Plan: -We will continue symptomatic treatment. -Spoken to nephrology: Plan for dialysis tomorrow. Qualifiers: Dyspnea type: shortness of breath Qualified Code(s): R06.02 - Shortness of breath (2) Chronic kidney disease, stage IV (severe) Current visit: No Status: Acute Patient is end-stage renal disease on hemodialysis: Monday/Monday/Monday. Patient will be scheduled for dialysis tomorrow (3) CAD (coronary artery disease) Current visit: No Status: Chronic Recent coronary artery bypass graft. Qualifiers: Coronary Disease-Associated Artery/Lesion type: [place] artery [place] vs. transplanted heart: [place] heart Associated angina: with unstable angina Qualified Code(s): I25.110 - Atherosclerotic heart disease of [place] coronary artery with unstable angina pectoris (4) Elevated troponin Current visit: Yes Status: Acute Likely multifactorial: (5) DVT prophylaxis Current visit: Yes Status: Acute Heparin Medical decision making: The patient has [id number] risk of worsening in spite of being on appropriate treatment Internal Medicine - H&P: HPI Chief complaint: SOB Admitted From: Emergency Dept Plans for Post Hospital Care: Home History of present illness: PCP: [facility] Nephrology: Dr Phillips [facility] Surgeon : Dr Ke Mason PMH: COPD, coronary artery disease, hyperlipidemia, hypertension, peripheral artery disease, ESRD on HD ( MWF) HPI: Patient states he started developing shortness of breath roughly 30 minutes prior to arrival while at dialysis. Patient reportedly had 30 minutes of dialysis and then was unable to tolerate anymore. EMS was called and patient was transported here. He denies any chest pain with this.He denies any recent illnesses. No sick contacts. Course in ER: Patient was evaluated in the emergency room. Chest x-ray showed vascular congestion. WBC count was mildly elevated. It is likely secondary to stress. EKG shows some abnormality but possibly secondary to previous surgery. Case was discussed with the cardiology. I personally examined this patient in the emergency room. I called nephrology Dr. Phillips and discuss case with him. Reason for admission: Worsening shortness of breath, likely secondary to inadequate dialysis. Elevated troponin: Multifactorial etiology. Family history: Noncontributory Past Med Surg Social Fam HX - Past Medical History Medical history: CHF, COPD, coronary artery disease, hyperlipidemia, hypertension, peripheral artery disease, renal disease Psychiatric history: anxiety - Past Surgical History Surgical History: appendectomy, cataract, vascular surgery, other - Social History Smoking Status: Former smoker Smokeless Tobacco Status: No Alcohol use: rarely Drug use: none Internal Medicine - H&P: Meds Amlodipine Besylate 10 mg PO DAILY 12/20/16 [History] Aspirin 81 mg PO DAILY 12/20/16 [History] Atorvastatin Calcium [Lipitor] 40 mg PO DAILY 12/20/16 [History] Hydralazine HCl 100 mg PO TID 12/20/16 [History] Metoprolol [Lopressor] 50 mg PO BID 12/20/16 [History] Amiodarone [Cordarone] 200 mg PO DAILY #30 tablet 12/30/16 [Rx] Nicotine Patch [Nicoderm] 21 mg TD DAILY #14 patch.td24 12/30/16 [Rx] OxyCODONE/APAP 5/325 [Percocet 5/325 MG] 1 each PO Q4HR PRN #30 tablet 12/30/16 [Rx] Allergies No Known Allergies Allergy (Unverified 12/19/16 15:55) All Systems PM: A 10-system review of systems was performed and is negative for pertinent findings except as documented above in the HPI. - Constitutional Constitutional: no chills, no fever(s), no night sweats - EENT Eyes: no change in vision, no discharge, no pain, no photophobia Ears: no ear discharge, no ear pain, no tinnitus Nose, mouth and throat: no dysphagia, no nasal discharge, no neck pain, no sore throat - Cardiovascular Cardiovascular ROS IM: dyspnea, palpitations, no chest pain, no diaphoresis, no lightheadedness, no syncope - Respiratory Respiratory: cough, dyspnea, wheezing, no excessive phlegm production - Gastrointestinal Gastrointestinal: no abdominal pain, no diarrhea, no hematemesis, no hematochezia, no melena, no nausea, no vomiting - Musculoskeletal Musculoskeletal ROS IM: no numbness, no tingling - Integumentary Integumentary IM: no rash, no unusual bruising - Neurological Neurological ROS: no confusion, no convulsions, no focal weakness, no numbness, no tingling, no tremor(s) - Hematologic/Lymphatic Hematologic/Lymphatic: no easy bruising - Constitutional Vitals: Temp Pulse Resp BP Pulse Ox 97.4 F L 54 20 131/63 94 L 01/06/17 17:36 01/06/17 17:36 01/06/17 17:36 01/06/17 17:36 01/06/17 17:36 General appearance: Present: A&O X 3, pleasant, no acute distress, answers questions appropriately - Head Head exam: Present: atraumatic, normocephalic - Eye Eye exam: Present: PERRL, conjuntiva pink, sclera anicteric Pupils: Present: PERRL - Neck Neck exam general surgery: Present: supple, trachea midline. Absent: lymphadenopathy - Respiratory Respiratory exam: Present: CTAB. Absent: accessory muscle use, rales, rhonchi, wheezes - Cardiovascular Cardiovascular exam: Present: RRR, +S1, +S2. Absent: diastolic murmur, gallop, rubs, systolic murmur - GI/Abdominal GI/Abdominal exam: Present: normal bowel sounds, soft, no peritoneal signs. Absent: distended, tenderness - Extremities Exam Extremities exam: Present: warm, radial pulses palpable and symetrical. Absent : calf tenderness, cyanotic, pedal edema - Neurological Exam Neurological exam: Present: CN II-XII intact, oriented X3, no focal deficits. Absent: pronater drift, facial droop, speech deficit - Skin Skin exam: Present: dry, intact Internal Med - H&P Results - Labs CBC & Chem 7: 01/07/17 00:49 01/07/17 00:49 Labs: Case discussed with the ER physician
[2017-01-06] MEDS: Nicotine 21 MG PATCH.TD24 TD SCH (18:24)
[2017-01-06] MEDS: *HR* Heparin 5,000 UNIT/ML VIAL SQ SCH (18:24)
[2017-01-06] MEDS ORDERED: Aspirin 325 MG TABLET PO ONE (18:35)
[2017-01-07 01:00] LABS: Basophils % 0.4 %; Eosinophils # 0.2 K/mcL (0.0-0.6); Eosinophils % 2.2 %; Hematocrit 26.4 % (37.5-50.1); Hemoglobin 8.4 g/dL (12.9-16.9); Immature Granulocytes % 0.9 % (0-4); Lymphocytes # 1.5 K/mcL (0.6-4.6); Lymphocytes % 14.3 %; Mean Corpuscular HGB Conc 31.8 g/dL (31.6-35.5); Mean Corpuscular Hemoglobin 31.6 pg (28.0-33.3); Mean Corpuscular Volume 99.2 fL (83.0-100.0); Mean Platelet Volume 9.8 fL (9.4-12.4); Monocytes % 9.2 %; Neutrophils # 7.5 K/mcL (1.6-8.9); Nucleated Red Blood Cells 0.2 /100 WBC (0); Platelet Count 422 K/mcL (140-400); Red Blood Count 2.66 M/mcL (4.19-5.50); Red Cell Distribution Width 17.9 % (11.5-14.5)
[2017-01-07 01:16] LABS: Albumin 2.1 g/dL (3.5-5.0); Albumin/Globulin Ratio 0.4 (1.1-2.2); Bilirubin,Total 0.8 mg/dL (0.2-1.2); Calcium 8.5 mg/dL (8.6-10.8); Globulin 5.1 g/dL (2.4-3.5); Magnesium 1.7 mg/dL (1.6-2.6); Phosphorous 5.5 mg/dL (2.3-4.7); Potassium 3.8 mEq/L (3.5-4.5); Total Protein 7.2 g/dL (6.0-8.3)
[2017-01-07] MEDS: *HR* Heparin 5,000 UNIT/ML VIAL SQ SCH ×2 (05:38→18:06)
--- NOTE | 2017-01-07 07:46 | Cardiology Consult Note ---
<Jd Saini - Last Filed: 01/07/17 10:52> Date of Encounter: 01/07/17 Time of Encounter: 08:00 Assessment and Plan (1) Volume overload Current Visit: Yes Status: Acute Per Cardiology: BMP noted to be greater than 5000. Chest x-ray shows: IMPRESSION: Findings are suggestive of congestive heart failure with increasing bilateral pleural effusions. Last echo showed EF preserved at 60-65%, normal diastolic function, mild AR. Recommend consult nephrology for ultrafiltration. Shortness of breath has improved. Qualifiers: Hypervolemia type: unspecified Qualified Code(s): E87.70 - Fluid overload, unspecified (2) Elevated troponin Current Visit: Yes Status: Acute Per Cardiology: Troponin elevated, however downward trending. Suspect relation to recent STEMI and bypass surgery. Remains chest pain-free. No previous troponin available for comparison. We'll continue to monitor. We'll check limited echo. Do not suspect non-STEMI. Already completed phase I cardiac rehabilitation during last hospital stay. (3) CAD (coronary artery disease) Current Visit: No Status: Chronic Per Cardiology: Recent acute anterior STEMI 3 weeks ago and status post CABG 5 with HAN to LAD , triple sequential SVG to diagonal 1 then OM1 and then OM 2, SVG to PDA. On asa , statin, and BB. Qualifiers: Coronary Disease-Associated Artery/Lesion type: [place] artery [place] vs. transplanted heart: [place] heart Associated angina: with unstable angina Qualified Code(s): I25.110 - Atherosclerotic heart disease of [place] coronary artery with unstable angina pectoris (4) CKD (chronic kidney disease) Current Visit: Yes Status: Chronic Per Cardiology: Has right AV fistula status post recent hemodialysis since bypass surgery. Nephrology consult pending. Qualifiers: Chronic kidney disease stage: stage 5 Qualified Code(s): N18.5 - Chronic kidney disease, stage 5 (5) On amiodarone therapy Current Visit: Yes Status: Chronic Per Cardiology: On amiodarone, presumed to developed postoperative atrial fibrillation. Previous records reviewed with no mention of atrial fibrillation. Currently sinus rhythm. Continue to monitor telemetry. Not on AC, has anemia. Anticipate amio to be stopped as outpatient at f/u with CT surgery. Discussion w patient/family: The assessment and plan as outlined above was discussed with the patient who expressed understanding and agreement. All questions were answered. Thank you for involving us in the care of your patient. Please call with any questions. Discussed and reviewed with Dr. Basilio. History of Present Illness Consult date: 01/07/17 Requesting physician: Manpreet Archibald Consult reason: SOB Chief complaint: SOB History of present illness: Mr. Hargrove is a 66 year old male with a relevant past medical history of nicotine abuse, peripheral vascular disease with aortobifemoral bypass, hypertension, hyperlipidemia, COPD, end-stage renal disease on dialysis, CAD with recent anterior wall STEMI 3 weeks ago with subsequent 5 with HAN to LAD , triple sequential saphenous vein graft to diagonal 1 and OM1 and OM 2 and SVG to PDA. Cardiology consult today for shortness of breath during dialysis yesterday. Patient reports since discharge he has been at rehabilitation. Dialysis is new for him, however patient had right fistula in place. Patient started dialysis after recent bypass surgery. He denies any chest pain. He reports shortness of breath at rest after dialysis yesterday. Reports currently improved today. He reports right arm weakness which has now been chronic since recent bypass surgery. Past Med Surg Social Fam HX - Past Medical History Attestation: Yes The following information was validated with the patient. Source: patient, old records reviewed Medical history: COPD, coronary artery disease, hyperlipidemia, hypertension, peripheral artery disease, renal disease Psychiatric history: anxiety - Past Surgical History Surgical History: appendectomy, cataract (Bilateral implants implantation.), vascular surgery (Aortobifemoral bypass.), other (Right upper extremity AV fistula formation. ) - Social History Smoking Status: Current every day smoker Smokeless Tobacco Status: No Alcohol use: rarely Drug use: none Medications and Allergies Amlodipine Besylate 10 mg PO DAILY 12/20/16 [History] Aspirin 81 mg PO DAILY 12/20/16 [History] Atorvastatin Calcium [Lipitor] 40 mg PO DAILY 12/20/16 [History] Hydralazine HCl 100 mg PO TID 12/20/16 [History] Metoprolol [Lopressor] 50 mg PO BID 12/20/16 [History] Amiodarone [Cordarone] 200 mg PO DAILY #30 tablet 12/30/16 [Rx] Nicotine Patch [Nicoderm] 21 mg TD DAILY #14 patch.td24 12/30/16 [Rx] OxyCODONE/APAP 5/325 [Percocet 5/325 MG] 1 each PO Q4HR PRN #30 tablet 12/30/16 [Rx] Allergies No Known Allergies Allergy (Unverified 12/19/16 15:55) All Systems Review: A 10-system review of systems was performed and is negative for pertinent findings except as documented above in the HPI. - Constitutional Constitutional: fatigue - Cardiovascular Cardiovascular: as per HPI, dyspnea at rest Physical Examination Selected Entries 01/07/17 03:26 Temperature 97.6 F Pulse Rate 53 Respiratory Rate 20 Blood Pressure 125/64 O2 Sat by Pulse Oximetry 99 Oxygen Flow Rate (LPM) 5 General: Conversant, No Apparent Distress HEENT: Atraumatic, Normocephaly, Mucus Membranes Moist Neck: No JVD, Normal carotid pulses Cardiac: Reg Rate and Rhythm, Normal S1 and S2, No Murmur Lungs: Other (decreased BS bilaterally) Neuro: Alert and responsive, No focal deficits noted Abdomen: Soft, Non-Tender Skin: No rashes noted on visualized skin, Other (Midsternal incision dry and intact, well approximated, no erythema, no drainage, mild ecchymosis, pale in appearance) Extremities: No Edema, Normal Pulses Results 01/07/17 00:49 01/07/17 00:49 Lab Results Laboratory Tests 12/30/16 01/06/17 01/06/17 05:00 12:45 12:45 Hgb 7.3 L 9.3 L Hct 22.7 L 29.6 L INR Creatinine Est GFR (Non-Af Amer) Troponin I 1.09 H* B-Natriuretic Peptide Albumin LDL Cholesterol, Calc 01/06/17 01/06/17 01/06/17 12:45 12:45 18:12 Hgb Hct INR 1.2 Creatinine Est GFR (Non-Af Amer) Troponin I 0.93 H* B-Natriuretic Peptide > 5000 H Albumin LDL Cholesterol, Calc 01/07/17 01/07/17 01/07/17 00:49 00:49 00:49 Hgb 8.4 L Hct 26.4 L INR Creatinine 4.12 H Est GFR (Non-Af Amer) 15 L Troponin I 0.90 H* B-Natriuretic Peptide Albumin 2.1 L LDL Cholesterol, Calc 62 01/07/17 06:07 Hgb Hct INR Creatinine Est GFR (Non-Af Amer) Troponin I 0.90 H* B-Natriuretic Peptide Albumin LDL Cholesterol, Calc ITS Impressions Chest X-Ray 01/06/17 14:06 IMPRESSION: Findings are suggestive of congestive heart failure with increasing bilateral pleural effusions. D/ / Lauren Calderón MD / Lauren Calderón MD Interpreting Provider: Lauren Calderón MD Intake & Output 01/04/17 01/05/17 01/06/17 01/07/17 23:59 23:59 23:59 23:59 Intake Total 0 / 0 400 / 400 Output Total 325 / 325 300 / 300 Balance -325 / -325 100 / 100 Weight 72.575 kg 93.894 kg Active Medications Amiodarone HCl (Cordarone) 200 mg PO DAILY PENDING SALE TO [facility] Stop: 07/09/17 09:01 Aspirin (Aspirin) 81 mg PO DAILY PENDING [facility] TO [facility] Stop: 07/09/17 09:01 Heparin Sodium (Porcine) (Heparin) 5,000 unit SQ Q12HCO PENDING SALE TO [facility] Stop: 07/08/17 18:01 Last Admin: 01/07/17 05:38 Dose: 5,000 unit Hydromorphone HCl (Dilaudid) 0.5 mg IVP Q4HR PRN PRN Reason: Severe Pain (7-10) Stop: 07/08/17 17:34 Metoprolol Tartrate (Lopressor) 50 mg PO BID [facility]ENDING [facility] TO [facility] Stop: 07/08/17 21:01 Last Admin: 01/06/17 21:03 Dose: 50 mg Naloxone HCl (Narcan) 0.4 mg IVP Q2MIN PRN PRN Reason: Opioid Reversal Stop: 07/08/17 17:34 Nicotine (Nicoderm) 21 mg TD DAILY PENDING [facility] PRN Reason: Protocol Stop: 07/08/17 17:46 Last Admin: 01/06/17 18:24 Dose: 21 mg Omeprazole (Prilosec) 20 mg PO DAILY@0630 PENDING S[facility] TO [facility] PRN Reason: Protocol Stop: 07/09/17 06:31 Last Admin: 01/07/17 05:38 Dose: 20 mg Oxycodone/Acetaminophen (Percocet 5/325) 1 each PO Q4HR PRN PRN Reason: pain 5-7 Stop: 07/08/17 17:38 Simvastatin (Zocor) 40 mg PO HS PENDING SALE TO [facility] Stop: 07/09/17 09:01 - Imaging and Cardiology Echo: report reviewed Cardiac cath: report reviewed - EKG Interpretation EKG results cardiology: personally reviewed (reviewed yesterday by Dr. Rain Vazquez interventional cardiology-- appeared improved from acute STEMI), other ( 24 hour telemetry reviewed with average heart rate 57, sinus rhythm, no significant events noted) Consult Discharge Plan - Plan [facility]errals: [facility]Primary Care Provider[facility] - <Ronal Basilio - Last Filed: 01/07/17 11:12> Date of Encounter: 01/07/17 Assessment and Plan Discussion w patient/family: The assessment and plan as outlined above was discussed with the patient and/or family members who expressed understanding and agreement. All questions were answered. Thank you for involving us in the care of your patient. Please call with any questions. History of Present Illness History of present illness: Mr. Hargrove is a 66 year old male All Systems Review: A 10-system review of systems was performed and is negative for pertinent findings except as documented above in the HPI. Results 01/07/17 00:49 01/07/17 00:49 Lab Results 01/06/17 01/07/17 01/07/17 18:12 00:49 00:49 WBC 10.3 Hgb 8.4 L Hct 26.4 L Plt Count 422 H Sodium Potassium Chloride Carbon Dioxide BUN Creatinine Glucose Calcium Magnesium Total Bilirubin AST ALT Alkaline Phosphatase Troponin I 0.93 H* 0.90 H* 01/07/17 01/07/17 00:49 06:07 WBC Hgb Hct Plt Count Sodium 137 Potassium 3.8 Chloride 99 Carbon Dioxide 24 BUN 45 H Creatinine 4.12 H Glucose 102 H Calcium 8.5 L Magnesium 1.7 Total Bilirubin 0.8 AST 25 ALT 12 Alkaline Phosphatase 110 Troponin I 0.90 H* - Attending Attestation Patient was seen, examined and agree with plan as outlined. SOB during dialysis yesterday. Exam and clinical work up c/w volume overload. Will need volume control via dialysis - scheduled for today. Will check a limited Echo No other procedures planned from a CV standpoint for now. Thanks for consult.
--- NOTE | 2017-01-07 10:17 | Internal Med Progress Note ---
Date of Encounter: 01/07/17 Time of Encounter: 10:14 - Assessment and plan (1) Acute exacerbation of CHF (congestive heart failure) Current Visit: Yes Status: Acute Assessment and plan: Acute on chronic diastolic CHF exacerbation related to volume overload and chronic kidney disease stage V on hemodialysis HD today Followed by Dr Rey's group limit fluid intake, may try Lasix IV large dose strict I's and O's , daily weight high risk of respiratory failure Qualifiers: Congestive heart failure type: diastolic Qualified Code(s): I50.33 - Acute on chronic diastolic (congestive) heart failure (2) Elevated troponin Current Visit: Yes Status: Acute Assessment and plan: Likely secondary to demand ischemia related to chronic kidney disease (3) CAD (coronary artery disease) Current Visit: No Status: Acute Assessment and plan: CAD with recent anterior wall STEMI 3 weeks ago with subsequent 5 with HAN to LAD, triple sequential saphenous vein graft to diagonal 1 and OM1 and OM 2 and SVG to PDA. Was evaluated by cardiology, no further diagnostic testing Continue aspirin, amiodarone, Lopressor, Zocor Qualifiers: Coronary Disease-Associated Artery/Lesion type: [place] artery [place] vs. transplanted heart: [place] heart Associated angina: with unstable angina Qualified Code(s): I25.110 - Atherosclerotic heart disease of [place] coronary artery with unstable angina pectoris (4) Chronic kidney disease, stage IV (severe) Current Visit: No Status: Acute (5) Right arm weakness Current Visit: No Status: Acute Assessment and plan: chronic condition . - Time Spent With Patient Greater than 35 minutes - Subjective Interval history: Feels less SOB, no fevers, no abdominal pain , no dysuria , no CP , no diarrhea - Constitutional Vitals: Temp Pulse Resp BP Pulse Ox 97.6 F 53 20 125/64 99 01/07/17 03:26 01/07/17 03:26 01/07/17 03:26 01/07/17 03:26 01/07/17 03:26 General appearance: Present: A&O X 3, pleasant, no acute distress, answers questions appropriately - Head Head exam: Present: atraumatic, normocephalic - Eye Eye exam: Present: PERRL, conjuntiva pink, sclera anicteric Pupils: Present: PERRL - Neck Neck exam general surgery: Present: supple, trachea midline. Absent: lymphadenopathy - Respiratory Respiratory exam: Present: CTAB, rales (Bilateral diffuse crackles, blunted breath sounds both bases). Absent: accessory muscle use, rhonchi, wheezes - Cardiovascular Cardiovascular exam: Present: RRR, +S1, +S2. Absent: diastolic murmur, gallop, rubs, systolic murmur - GI/Abdominal GI/Abdominal exam: Present: normal bowel sounds, soft, no peritoneal signs. Absent: distended, tenderness - Extremities Exam Extremities exam: Present: warm, radial pulses palpable and symetrical. Absent : calf tenderness, cyanotic, pedal edema Additional comments: Right upper extremity chronic weakness, left upper extremity AV fistula with good thrill - Neurological Exam Neurological exam: Present: CN II-XII intact, oriented X3, no focal deficits. Absent: pronater drift, facial droop, speech deficit - Skin Skin exam: Present: dry, intact Internal Medicine: Result - Labs CBC & Chem 7: 01/07/17 00:49 01/07/17 00:49 Labs: Short CBC 01/07/17 Range/Units 00:49 WBC 10.3 (4.3-11.1) K/mcL Hgb 8.4 L (12.9-16.9) g/dL Hct 26.4 L (37.5-50.1) % Plt Count 422 H (140-400) K/mcL Neutrophils # 7.5 (1.6-8.9) K/mcL BMP 01/07/17 00:49 Sodium 137 Potassium 3.8 Chloride 99 Carbon Dioxide 24 BUN 45 H Creatinine 4.12 H Glucose 102 H Calcium 8.5 L Cardiac Enzymes 01/06/17 01/07/17 01/07/17 Range/Units 18:12 00:49 06:07 Troponin I 0.93 H* 0.90 H* 0.90 H* (0-0.03) ng/mL Liver Function 01/07/17 Range/Units 00:49 Total Bilirubin 0.8 (0.2-1.2) mg/dL AST 25 (5-34) Units/L ALT 12 (0-55) Units/L Alkaline Phosphatase 110 (38-126) Units/L Albumin 2.1 L (3.5-5.0) g/dL - ABG Interpretation ABG results: PT/INR, D-dimer PT 13.5 Seconds (9.4-12.1) H 01/06/17 12:45 Consult Discharge Plan - Plan [facility]errals: [facility] [Primary Care Provider[facility] -
[2017-01-07] MEDS ORDERED: Furosemide 40 MG/4 ML VIAL IV ONE (10:20)
[2017-01-07] MEDS: Aspirin 81 MG TAB.CHEW PO SCH (10:42)
[2017-01-07] MEDS: Nicotine 21 MG PATCH.TD24 TD SCH (10:43)
[2017-01-07] MEDS: *HR* Amiodarone 200 MG TABLET PO SCH (10:44)
--- NOTE | 2017-01-07 10:45 | Nephrology Consult Note ---
Date of Encounter: 01/07/17 Time of Encounter: 10:18 Assessment and Plan (1) ESRD (end stage renal disease) Current Visit: Yes Status: Acute has SOB with volume overload. . will dialyze pt today, target UF 3- 4 kg as tolerated (2) Anemia in chronic kidney disease (CKD) Current Visit: Yes Status: Acute RDW elevated. Check iron studies, B12 folate Check on outpatient dose of Epogen (3) Essential hypertension Current Visit: Yes Status: Acute BP stable. Continue metoprolol History of Present Illness - Reason for Consult end stage renal disease - Chief Complaint volume overload, Shortness of breath, needs Dialysis - History of Present Illness 66 years old male with h/o HTN, CAD, s/p CABG 3 weeks ago. Has known h/o CKD stage IV, renal function deteriorated after CABG and dialysis was started. Currently dialyzes Monday at outpatient facility, and denies any problems on dialysis other than AV fistula infiltration few days ago. Started having shortness of breath about 30 minutes prior to dialysis, got worse while on dialysis and could not take it anymore. He was dialyzed for about 30 minutes and was brought to the emergency room for further management. In the ER T 97, P 57, BP 127/98, hypoxic requiring 6 L of oxygen. Chest x-ray pulmonary vascular congestion, bilateral pleural effusions Labs significant for hemoglobin 9.3, troponin 0.9. EKG showed T-wave inversions in L1, L2,V1 to V6. Received 40 mg of Lasix IV in the ER and admitted for further management. Patient is a vague historian Past Med Surg Social Fam HX - Past Medical History Medical history: COPD, coronary artery disease, hyperlipidemia, hypertension, peripheral artery disease, renal disease Psychiatric history: anxiety - Past Surgical History Surgical History: appendectomy, cataract (Bilateral implants implantation.), vascular surgery (Aortobifemoral bypass.), other (Right upper extremity AV fistula formation. ) - Social History Smoking Status: Current every day smoker Smokeless Tobacco Status: No Alcohol use: rarely Drug use: none Medications and Allergies Amlodipine Besylate 10 mg PO DAILY 12/20/16 [History] Aspirin 81 mg PO DAILY 12/20/16 [History] Atorvastatin Calcium [Lipitor] 40 mg PO DAILY 12/20/16 [History] Hydralazine HCl 100 mg PO TID 12/20/16 [History] Metoprolol [Lopressor] 50 mg PO BID 12/20/16 [History] Amiodarone [Cordarone] 200 mg PO DAILY #30 tablet 12/30/16 [Rx] Nicotine Patch [Nicoderm] 21 mg TD DAILY #14 patch.td24 12/30/16 [Rx] OxyCODONE/APAP 5/325 [Percocet 5/325 MG] 1 each PO Q4HR PRN #30 tablet 12/30/16 [Rx] Allergies No Known Allergies Allergy (Unverified 12/19/16 15:55) Review of Systems All Systems review (narrative): RESPIRATORY Continues to have shortness of breath but is better than last evening. Denies associated symptoms. Makes minimal amount of urine PLASTIC WELDER; unable to move right arm. All other review of symptoms is negative Exam - Vital Signs Vital signs: Initial Vital Signs Temp Pulse Resp BP Pulse Ox 97.6 F 57 20 127/58 93 L 01/06/17 13:58 01/06/17 13:58 01/06/17 13:58 01/06/17 13:58 01/06/17 13:58 Vital Signs - Last 8 Hours Temp Pulse Resp BP Pulse Ox 01/07/17 03:26 97.6 F 53 20 125/64 99 Intake and Output 01/06/17 01/07/17 01/07/17 23:59 07:59 15:59 Intake Total 0 / 0 400 / 400 Output Total 325 / 325 300 / 300 Balance -325 / -325 100 / 100 Intake: Oral 0 / 0 400 / 400 Output: Urine 325 / 325 300 / 300 Other: Weight 93.894 kg Patient Weight 01/07/17 23:59 Weight 93.894 kg - General Appearance Exam: HEENT; perrl, pallor present. no icterus NECK; supple , no JVD, lymphadenopathy CVS; s1s2 present, regular, no murmurs. Sternal incision has healed well RESP; decreased air entry, clear to auscultation ABD; soft, NT, BS present, no organomegaly, no bruits EXT; no edema, DP pulses palpable. PLASTIC WELDER; alert oriented -3, rt arm hemiplegia Results - Lab Results 01/07/17 00:49 01/07/17 00:49 Most recent lab results Calcium 8.5 mg/dL (8.6-10.8) L 01/07/17 00:49 Phosphorus 5.5 mg/dL (2.3-4.7) H 01/07/17 00:49 Magnesium 1.7 mg/dL (1.6-2.6) 01/07/17 00:49 Consult Discharge Plan - Plan [facility]errals: [facility] [Primary Care Provider] -
[2017-01-07] MEDS ORDERED: 0.9 % Sodium Chloride 250 ML IV PRN (10:48)
[2017-01-07] MEDS ORDERED: 0.9 % Sodium Chloride 2,000 ML ONE (15:17)
[2017-01-08] MEDS: *HR* Heparin 5,000 UNIT/ML VIAL SQ SCH ×2 (05:51→17:45)
[2017-01-08 06:44] LABS: Hematocrit 26.8 % (37.5-50.1); Hemoglobin 8.4 g/dL (12.9-16.9); Mean Corpuscular HGB Conc 31.3 g/dL (31.6-35.5); Mean Corpuscular Hemoglobin 31.1 pg (28.0-33.3); Mean Corpuscular Volume 99.3 fL (83.0-100.0); Platelet Count 293 K/mcL (140-400); Red Cell Distribution Width 18.1 % (11.5-14.5)
[2017-01-08 07:00] LABS: Calcium 8.3 mg/dL (8.6-10.8); Potassium 3.7 mEq/L (3.5-4.5)
--- NOTE | 2017-01-08 07:30 | Cardiology Progress Note ---
Date of Encounter: 01/08/17 Time of Encounter: 08:00 Assessment and Plan (1) Volume overload Current Visit: Yes Status: Acute Per Cardiology: BMP noted to be greater than 5000. Chest x-ray showed: IMPRESSION: Findings are suggestive of congestive heart failure with increasing bilateral pleural effusions. Last echo showed EF preserved at 60-65%, normal diastolic function, mild AR. Current echo pending. Net - 4258ml. SOB improved. Qualifiers: Qualified Code(s): E87.70 - Fluid overload, unspecified (2) Elevated troponin Current Visit: Yes Status: Acute Per Cardiology: Troponin elevated, however downward trending. Suspect relation to recent STEMI and bypass surgery. Remains chest pain-free. No previous troponin available for comparison. CP free. Awaiting limited echo. Do not suspect non-STEMI. (3) CAD (coronary artery disease) Current Visit: No Status: Chronic Per Cardiology: Recent acute anterior STEMI 3 weeks ago and status post CABG 5 with HAN to LAD , triple sequential SVG to diagonal 1 then OM1 and then OM 2, SVG to PDA. On asa , statin, and BB. Qualifiers: Qualified Code(s): I25.110 - Atherosclerotic heart disease of [place] coronary artery with unstable angina pectoris (4) CKD (chronic kidney disease) Current Visit: Yes Status: Chronic Per Cardiology: Has right AV fistula status post recent hemodialysis since bypass surgery. Nephrology following. Qualifiers: Qualified Code(s): N18.5 - Chronic kidney disease, stage 5 (5) On amiodarone therapy Current Visit: Yes Status: Chronic Per Cardiology: On amiodarone, presumed to developed postoperative atrial fibrillation. Previous records reviewed with no mention of atrial fibrillation. Remains sinus rhythm on telemetry with no significant events noted. Anticipate amio to be stopped as outpatient at f/u with CT surgery. Discussion w patient/family: The assessment and plan as outlined above was discussed with the patient who expressed understanding and agreement. All questions were answered. Thank you for involving us in the care of your patient. Please call with any questions. Discussed and reviewed with Dr. Basilio. Subjective Principal diagnosis: SOB Interval history: Patient denies any CP. Report SOB improved. Denies any palpitations. Objective Vital Signs, Last 4 Hours Temp Pulse Resp BP Pulse Ox 01/08/17 07:02 96.9 F L 56 16 119/68 99 01/08/17 04:50 97.7 F 55 18 114/49 99 General: Conversant, No Apparent Distress HEENT: Atraumatic, Normocephaly, Mucus Membranes Moist Cardiac: Reg Rate and Rhythm, Normal S1 and S2, No Murmur Lungs: Normal Breath Sounds, No Wheeze, Rales, Rhonchi, Other (Slightly diminished to bilateral bases.) Neuro: Alert and responsive, No focal deficits noted Skin: No rashes noted on visualized skin, Other (Midsternal and R leg vein harvest sites well-approximated, no drainage, no erythema) Extremities: Other (+1 nonpitting bilateral LE) Results 01/08/17 06:20 01/08/17 06:20 Lab Results Intake & Output 01/05/17 01/06/17 01/07/17 01/08/17 23:59 23:59 23:59 23:59 Intake Total 0 / 0 1000 / 1000 Output Total 325 / 325 4883 / 4883 50 / 50 Balance -325 / -325 -3883 / -3883 -50 / -50 Weight 72.575 kg 93.894 kg Active Medications Amiodarone HCl (Cordarone) 200 mg PO DAILY [facility] Stop: 07/09/17 09:01 Last Admin: 01/07/17 10:44 Dose: Not Given Aspirin (Aspirin) 81 mg PO DAILY [facility] Stop: 07/09/17 09:01 Last Admin: 01/07/17 10:42 Dose: 81 mg Heparin Sodium (Porcine) (Heparin) 5,000 unit SQ Q12HCO [facility] Stop: 07/08/17 18:01 Last Admin: 01/08/17 05:51 Dose: 5,000 unit Hydromorphone HCl (Dilaudid) 0.5 mg IVP Q4HR PRN PRN Reason: Severe Pain (7-10) Stop: 07/08/17 17:34 Sodium Chloride (0.9 % Sodium Chloride) 250 mls @ 999 mls/hr IV ONCE PRN PRN Reason: Hypotension Stop: 07/09/17 10:49 Metoprolol Tartrate (Lopressor) 50 mg PO BID [facility] Stop: 07/08/17 21:01 Last Admin: 01/07/17 21:33 Dose: 50 mg Naloxone HCl (Narcan) 0.4 mg IVP Q2MIN PRN PRN Reason: Opioid Reversal Stop: 07/08/17 17:34 Nicotine (Nicoderm) 21 mg TD DAILY [facility] PRN Reason: Protocol Stop: 07/08/17 17:46 Last Admin: 01/07/17 10:43 Dose: 21 mg Omeprazole (Prilosec) 20 mg PO DAILY@0630 [facility] PRN Reason: Protocol Stop: 07/09/17 06:31 Last Admin: 01/08/17 05:51 Dose: 20 mg Oxycodone/Acetaminophen (Percocet 5/325) 1 each PO Q4HR PRN PRN Reason: pain 5-7 Stop: 07/08/17 17:38 Polyethylene Glycol (Miralax) 17 gm PO DAILY [facility] Stop: 07/09/17 17:22 Last Admin: 01/07/17 18:06 Dose: 17 gm Simvastatin (Zocor) 40 mg PO HS [facility] Stop: 07/09/17 09:01 Last Admin: 01/07/17 21:32 Dose: 40 mg - EKG Interpretation EKG results cardiology: other (24-hour telemetry reviewed with average heart rate 59, sinus bradycardia to sinus rhythm, no significant events noted) Consult Discharge Plan - Plan [facility]errals: [facility] [Primary Care Provider] -
[2017-01-08] MEDS: *HR* Amiodarone 200 MG TABLET PO SCH (09:13)
[2017-01-08] MEDS: Nicotine 21 MG PATCH.TD24 TD SCH (09:13)
[2017-01-08] MEDS: Aspirin 81 MG TAB.CHEW PO SCH (09:14)
--- NOTE | 2017-01-08 10:07 | Discharge Summary ---
Date of Encounter: 01/08/17 Time of Encounter: 10:01 - Discharge Diagnosis (1) Acute exacerbation of CHF (congestive heart failure) Priority: Primary Status: Acute Comments: Acute on chronic diastolic CHF exacerbation related to volume overload and chronic kidney disease stage V on hemodialysis Qualifiers: Congestive heart failure type: diastolic Qualified Code(s): I50.33 - Acute on chronic diastolic (congestive) heart failure (2) Elevated troponin Priority: Secondary Status: Acute Comments: Likely secondary to demand ischemia related to chronic kidney disease (3) CAD (coronary artery disease) Priority: Secondary Status: Chronic Comments: CAD with recent anterior wall STEMI 3 weeks ago with subsequent 5 with HAN to LAD, triple sequential saphenous vein graft to diagonal 1 and OM1 and OM 2 and SVG to PDA. Qualifiers: Coronary Disease-Associated Artery/Lesion type: [place] artery [place] vs. transplanted heart: [place] heart Associated angina: with unstable angina Qualified Code(s): I25.110 - Atherosclerotic heart disease of [place] coronary artery with unstable angina pectoris (4) Chronic kidney disease, stage IV (severe) Priority: Secondary Status: Acute (5) Right arm weakness Priority: Secondary Status: Acute Comments: possible CVA in the past - Discharge Medications Prescriptions: Furosemide [Lasix] 80 mg PO BID #60 tablet Home Medications: Amlodipine Besylate 10 mg PO DAILY 12/20/16 [History] Aspirin 81 mg PO DAILY 12/20/16 [History] Atorvastatin Calcium [Lipitor] 40 mg PO DAILY 12/20/16 [History] Hydralazine HCl 100 mg PO TID 12/20/16 [History] Metoprolol [Lopressor] 50 mg PO BID 12/20/16 [History] Amiodarone [Cordarone] 200 mg PO DAILY #30 tablet 12/30/16 [Rx] Nicotine Patch [Nicoderm] 21 mg TD DAILY #14 patch.td24 12/30/16 [Rx] OxyCODONE/APAP 5/325 [Percocet 5/325 MG] 1 each PO Q4HR PRN #30 tablet 12/30/16 [Rx] Furosemide [Lasix] 80 mg PO BID #60 tablet 01/08/17 [Rx] Allergies/Adverse Reactions: Allergies No Known Allergies Allergy (Unverified 12/19/16 15:55) Procedures/tests Complete & Pending: Procedures Performed prior 72 hours Category Date Time Status EV limited echocardiogram Routine Y 01/08/17 11:00 Completed Date of admission: 01/06/17 17:33 [facility] care [facility]: [facility] Consults: 01/07/17 10:03 Consult to Nephrology [CONS] Routine Consulting Provider: Estiven Phillips Reason for Consult: HD Call Completed: Yes 01/07/17 11:00 Consult to Dialysis [CONS] ONCE - Patient Status Disposition: Home Health Service Condition: Fair Overall status at discharge: patient is progressing back to baseline - Discharge Instructions Follow Up With: [facility] [Primary Care Provider] - Additional Instructions: Follow with primary care physician within the next 7 days. Continue dialysis on Wednesdays. Start Lasix 80 mg twice a day on nondialysis days. Oxygen therapy. Follow-up with personal lines sales executive within the next 2-3 weeks. Decrease fluid intake - Diet and Activity Activity: increase activity as tolerated, wear oxygen at night Diet: low fat, low cholesterol (Renal diet) Hospital course: Mr. Hargrove is a 66 year old male with a relevant past medical history of nicotine abuse, peripheral vascular disease with aortobifemoral bypass, hypertension, hyperlipidemia, COPD, end-stage renal disease on dialysis, CAD with recent anterior wall STEMI 3 weeks ago with subsequent 5 with HAN to LAD , triple sequential saphenous vein graft to diagonal 1 and OM1 and OM 2 and SVG to PDA. Came for shortness of breath during dialysis yesterday. Patient reported that since discharge he has been at rehabilitation. Dialysis is new for him, however patient had right fistula in place. Patient started dialysis after recent bypass surgery. Upon admission, the chest x-ray shows vascular congestion with bilateral pleural effusions. The patient had dialysis on 01/07/2017 and more than 4 L were removed. Patient is feeling much better today. Was evaluated by cardiology, and no further diagnostic testing. Continue aspirin, amiodarone, Lopressor, statin. Followed by Dr Rey's group limit fluid intake, may try Lasix IV large dose An echocardiogram will be performed prior to his discharge and he will be released if no new findings are evidence. The patient does not want to go to a nursing facility and prefers to go home on home health. Time spent discussing smoking cessation with patient: 3 to 10 minutes - Time Spent with Patient Total time spent providing and/or coordinating discharge services: Greater than 30 minutes (40 min) - Constitutional Vitals: Temp Pulse Resp BP Pulse Ox 96.9 F L 56 16 119/68 99 01/08/17 07:02 01/08/17 07:02 01/08/17 07:02 01/08/17 07:02 01/08/17 07:02 General appearance: Present: A&O X 3, pleasant, no acute distress, answers questions appropriately - Head Head exam: Present: atraumatic, normocephalic - Eye Eye exam: Present: PERRL, conjuntiva pink, sclera anicteric Pupils: Present: PERRL - Neck Neck exam general surgery: Present: supple, trachea midline. Absent: lymphadenopathy - Respiratory Respiratory exam: Present: CTAB. Absent: accessory muscle use, rales, rhonchi, wheezes - Cardiovascular Cardiovascular exam: Present: RRR, +S1, +S2. Absent: diastolic murmur, gallop, rubs, systolic murmur - GI/Abdominal GI/Abdominal exam: Present: normal bowel sounds, soft, no peritoneal signs. Absent: distended, tenderness - Extremities Exam Extremities exam: Present: warm, radial pulses palpable and symetrical. Absent : calf tenderness, cyanotic, pedal edema Additional comments: Right upper extremity AV fistula. kenisha-paresis/ Right upper extremity - Neurological Exam Neurological exam: Present: CN II-XII intact, oriented X3, no focal deficits. Absent: pronater drift, facial droop, speech deficit - Skin Skin exam: Present: dry, intact
--- NOTE | 2017-01-08 10:18 | Physician Discharge Referral ---
Home Health/Hosp Referral Info Transfer to: Home Health Provider in Charge Post Discharge: PCP - Diagnosis (1) Acute exacerbation of CHF (congestive heart failure) Status: Acute (2) Elevated troponin Status: Acute (3) CAD (coronary artery disease) Status: Chronic (4) Chronic kidney disease, stage IV (severe) Status: Acute (5) Right arm weakness Status: Acute - Respiratory Orders Oxygen / L per min (2 L continuously) Smoking Cessation: Smoking cessation has been advised. For more information, call the [place] Tobacco Quit Line at 0-485-YFUU-NOW. - Diet/Nutrition Diet/Nutrition Orders: Renal - Services Needed Following services are medically necessary services: Home Health Aide, Physical Therapy Home Care Orders: Follow with primary care physician within the next 7 days. Continue dialysis on Wednesdays. Start Lasix 80 mg twice a day on nondialysis days. Oxygen therapy. Follow-up with portainer operator within the next 2-3 weeks. Decrease fluid intake - Transfer Medications Prescriptions: Furosemide [Lasix] 80 mg PO BID #60 tablet Home Medications: Amlodipine Besylate 10 mg PO DAILY 12/20/16 [History] Aspirin 81 mg PO DAILY 12/20/16 [History] Atorvastatin Calcium [Lipitor] 40 mg PO DAILY 12/20/16 [History] Hydralazine HCl 100 mg PO TID 12/20/16 [History] Metoprolol [Lopressor] 50 mg PO BID 12/20/16 [History] Amiodarone [Cordarone] 200 mg PO DAILY #30 tablet 12/30/16 [Rx] Nicotine Patch [Nicoderm] 21 mg TD DAILY #14 patch.td24 12/30/16 [Rx] OxyCODONE/APAP 5/325 [Percocet 5/325 MG] 1 each PO Q4HR PRN #30 tablet 12/30/16 [Rx] Furosemide [Lasix] 80 mg PO BID #60 tablet 01/08/17 [Rx] Allergies/Adverse Reactions: Allergies No Known Allergies Allergy (Unverified 12/19/16 15:55) Certification: Further, I certify that my clinical findings support that this patient is homebound (i.e. absences from home require considerable and taxing effort and are for medical reasons or oriental orthodox services or infrequently or short duration when for other reasons) because: Homebound Reason: Patient requires assistance of a person or device to safely leave home Attestation: My signature below is to certify that this patient is under my care and that I, or nurse practitioner, or a physician's assistant department manager working with me, has a face-to -face encounter with this patient.
--- NOTE | 2017-01-08 10:24 | ECHO - Doppler Report ---
Limited Echocardiogram Name: Bill Hargrove Date of Study: 01/08/2017 Date: 1950 Ht: 66.0 in Medical Record#: [id number] Age: 66 Wt: 207.0 lb Gender: Male BSA: 2.03 Order #: [id number] Location: [facility] Room #: 2A35 Reading Physician: Hao Sepulveda MD, [facility] Medical Dermatologist: JASWINDER WillardT, [facility] Ordering Physician: Jd Saini CNP Primary Physician: [facility] Indications: Shortness of breath, Coronary artery disease Impressions: LVEF 55-60%. No segmental dysfunction. Left Ventricular Wall Motion: Rest Echo Findings All wall segments showed normal motion. Findings: Study Quality * Technically adequate exam. ECG Findings * Sinus bradycardia. Left Ventricle * LVEF 55-60%. * No segmental dysfunction. Right Ventricle * Normal right ventricular structure and function. Left Atrium * Mildly dilated left atrium. Right Atrium * Normal right atrial size. History Hypertension Hypercholesteremia Years 55 Packs 1 History of CAD/PTCA Coronary Artery Bypass Graft 12/20/2016 a Previous Echo was performed. Measurements: BP: 119/ 68 2D Normal Values RVIDd: 2.89 cm <2.7 cm IVSd: 1.17 cm 0.6 - 1.0 cm LVIDd: 5.00 cm 3.7 - 5.6 cm LVPWd: 1.11 cm 0.6 - 1.1 cm LVIDs: 3.39 cm 1.5 - 3.6 cm LA: 4.40 cm 2.0 - 4.0cm %FS: 32.20 cm >25 % LA volume: Updated by Hao Sepulveda MD, [facility] on 01/08/2017 10:17:33 AM electronically signed on 01/08/2017 10:18:15 AM with status of Final Wall Motion Ludwig: 1=Normal, 2=Hypokinesis, 3=Akinesis, 4=Dyskinesis, 5=Aneurysmal, 6=Hyperkinetic, X=Not Visualized (Blank)=Missing
--- NOTE | 2017-01-08 11:38 | Event Note ---
Date of Encounter: 01/08/17 Time of Encounter: 11:30 - Cardiology Event Note EF remains preserved on echo 55-60% and acute abnormalities. Cardiology will sign off, re-consult as needed, follow up as outpatient--arranged. Discharge pending.
[2017-01-08 12:19] LABS: % Iron Saturation 21 % (20-55); Transferrin 195 mg/dL (174-364)
[2017-01-08 12:20] LABS: Iron 57 mcg/dL (65-175)
[2017-01-08 12:38] LABS: Ferritin 1221 ng/ml (22-275)
[2017-01-08 14:31] LABS: Folate 4.6 ng/mL (7.0-31.4)
--- NOTE | 2017-01-09 06:58 | Electrocardiograph Report ---
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
[2017-01-09 07:45] LABS: Hematocrit 27.2 % (37.5-50.1); Hemoglobin 8.4 g/dL (12.9-16.9); Mean Corpuscular HGB Conc 30.9 g/dL (31.6-35.5); Mean Corpuscular Hemoglobin 30.8 pg (28.0-33.3); Mean Corpuscular Volume 99.6 fL (83.0-100.0); Mean Platelet Volume 9.9 fL (9.4-12.4); Platelet Count 333 K/mcL (140-400); Red Blood Count 2.73 M/mcL (4.19-5.50); Red Cell Distribution Width 17.4 % (11.5-14.5)
[2017-01-09 08:04] LABS: Calcium 8.2 mg/dL (8.6-10.8); Potassium 3.6 mEq/L (3.5-4.5)
[2017-01-09] MEDS ORDERED: 0.9 % Sodium Chloride 250 ML IV PRN (08:18)
--- NOTE | 2017-01-09 08:18 | Nephrology Progress Note ---
Date of Encounter: 01/09/17 Time of Encounter: 08:17 - Assessment and Plan (1) ESRD (end stage renal disease) Current Visit: Yes Status: Acute Patient will undergo his usual dialysis today. I believe he is to be discharged back to the detention following dialysis today. His shortness of breath has resolved with additional dialysis this past Monday. (2) Acute exacerbation of CHF (congestive heart failure) Current Visit: Yes Status: Acute Qualifiers: Congestive heart failure type: diastolic Qualified Code(s): I50.33 - Acute on chronic diastolic (congestive) heart failure (3) Anemia in chronic kidney disease (CKD) Current Visit: Yes Status: Acute (4) Right arm weakness Current Visit: No Status: Acute Subjective Principal diagnosis: SOB Interval history: Patient denies any new complaints. He denies any shortness of breath. He will undergo his usual dialysis today. Objective - Vital Signs Vital signs: Vital Signs Temp Pulse Resp BP Pulse Ox 01/09/17 04:46 98.3 F 55 16 124/60 94 L 01/09/17 00:27 97.5 F L 58 18 111/54 94 L 01/08/17 20:07 97.9 F 59 18 125/55 94 L 01/08/17 15:00 97.3 F L 60 16 118/52 93 L 01/08/17 11:48 90 L 01/08/17 11:19 97.6 F 57 16 113/63 96 01/08/17 09:15 98 Intake and Output 01/08/17 01/09/17 01/09/17 23:59 07:59 15:59 Intake Total 240 / 240 Output Total 100 / 100 Balance 140 / 140 Intake: Oral 240 / 240 Output: Urine 100 / 100 Other: # Voids 1 - General Appearance Exam: Patient is alert and oriented. He is in no acute distress. Lungs sounds otherwise clear. Heart regular rhythm with a 2/6 ejection murmur. Abdomen is benign. There is no lower extremity swelling. There is a functioning AV fistula in the right upper extremity. - Lab 01/09/17 07:11 01/09/17 07:11 Most recent lab results Calcium 8.2 mg/dL (8.6-10.8) L 01/09/17 07:11 Phosphorus 5.5 mg/dL (2.3-4.7) H 01/07/17 00:49 Magnesium 1.7 mg/dL (1.6-2.6) 01/07/17 00:49 Consult Discharge Plan - Plan Additional Instructions: Follow with primary care physician within the next 7 days. Continue dialysis on Wednesdays. Start Lasix 80 mg twice a day on nondialysis days. Oxygen therapy. Follow-up with personal financial planner within the next 2-3 weeks. Decrease fluid intake Referrals: [facility] [Primary Care Provider] - Prescriptions: Furosemide [Lasix] 80 mg PO BID #60 tablet
--- NOTE | 2017-01-09 08:29 | Internal Med Progress Note ---
Date of Encounter: 01/09/17 Time of Encounter: 08:27 - Assessment and plan (1) Acute exacerbation of CHF (congestive heart failure) Current Visit: Yes Status: Acute Assessment and plan: Acute on chronic diastolic CHF exacerbation related to volume overload and chronic kidney disease stage V on hemodialysis HD today prior to discharge Followed by Dr Rey's group limit fluid intake, will try Lasix 80 mg twice a day and on non dialysis days strict I's and O's , daily weight Qualifiers: Congestive heart failure type: diastolic Qualified Code(s): I50.33 - Acute on chronic diastolic (congestive) heart failure (2) Elevated troponin Current Visit: Yes Status: Acute Assessment and plan: Likely secondary to demand ischemia related to chronic kidney disease (3) CAD (coronary artery disease) Current Visit: No Status: Chronic Assessment and plan: CAD with recent anterior wall STEMI 3 weeks ago with subsequent 5 with HAN to LAD, triple sequential saphenous vein graft to diagonal 1 and OM1 and OM 2 and SVG to PDA. Was evaluated by cardiology, no further diagnostic testing Continue aspirin, amiodarone, Lopressor, Zocor Qualifiers: Coronary Disease-Associated Artery/Lesion type: [place] artery [place] vs. transplanted heart: [place] heart Associated angina: with unstable angina Qualified Code(s): I25.110 - Atherosclerotic heart disease of [place] coronary artery with unstable angina pectoris (4) Chronic kidney disease, stage IV (severe) Current Visit: No Status: Acute (5) Right arm weakness Current Visit: No Status: Acute Assessment and plan: chronic condition . - Time Spent With Patient Greater than 35 minutes - Subjective Interval history: The patient is feeling much better today, no fevers, no abdominal pain , no dysuria , no CP , no diarrhea - Constitutional Vitals: Temp Pulse Resp BP Pulse Ox 98.3 F 55 16 124/60 94 L 01/09/17 04:46 01/09/17 04:46 01/09/17 04:46 01/09/17 04:46 01/09/17 04:46 General appearance: Present: A&O X 3, pleasant, no acute distress, answers questions appropriately - Head Head exam: Present: atraumatic, normocephalic - Eye Eye exam: Present: PERRL, conjuntiva pink, sclera anicteric Pupils: Present: PERRL - Neck Neck exam general surgery: Present: supple, trachea midline. Absent: lymphadenopathy - Respiratory Respiratory exam: Present: decreased breath sounds, CTAB. Absent: accessory muscle use, rales, rhonchi, wheezes - Cardiovascular Cardiovascular exam: Present: RRR, +S1, +S2. Absent: diastolic murmur, gallop, rubs, systolic murmur - GI/Abdominal GI/Abdominal exam: Present: normal bowel sounds, soft, no peritoneal signs. Absent: distended, tenderness - Extremities Exam Extremities exam: Present: warm, radial pulses palpable and symetrical. Absent : calf tenderness, cyanotic, pedal edema Additional comments: Right upper extremity chronic weakness, AV fistula with good thrill in right upper extremity - Neurological Exam Neurological exam: Present: CN II-XII intact, oriented X3, no focal deficits. Absent: pronater drift, facial droop, speech deficit - Skin Skin exam: Present: dry, intact Internal Medicine: Result - Labs CBC & Chem 7: 01/09/17 07:11 01/09/17 07:11 Labs: Short CBC 01/09/17 Range/Units 07:11 WBC 8.2 (4.3-11.1) K/mcL Hgb 8.4 L (12.9-16.9) g/dL Hct 27.2 L (37.5-50.1) % Plt Count 333 (140-400) K/mcL BMP 01/09/17 07:11 Sodium 135 L Potassium 3.6 Chloride 96 L Carbon Dioxide 26 BUN 41 H D Creatinine 4.04 H Glucose 107 H Calcium 8.2 L - ABG Interpretation ABG results: PT/INR, D-dimer PT 13.5 Seconds (9.4-12.1) H 01/06/17 12:45 Consult Discharge Plan - Plan Additional Instructions: Follow with primary care physician within the next 7 days. Continue dialysis on Wednesdays. Start Lasix 80 mg twice a day on nondialysis days. Oxygen therapy. 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 Decrease fluid intake [facility]: [facility] Care Provider[facility] - Prescriptions: Furosemide [Lasix] 80 mg PO BID #60 tablet
[2017-01-09] MEDS: Aspirin 81 MG TAB.CHEW PO SCH (08:33)
[2017-01-09] MEDS: *HR* Amiodarone 200 MG TABLET PO SCH (08:33)
[2017-01-09] MEDS: Nicotine 21 MG PATCH.TD24 TD SCH (08:34)
[2017-01-09] MEDS: *HR* Heparin 5,000 UNIT/ML VIAL SQ SCH (08:35)
[2017-01-09] MEDS ORDERED: 0.9 % Sodium Chloride 2,000 ML ONE (10:04)
[2017-01-09 12:53] VITALS: BP 108/48
== END 2017-01-09 16:49 | disposition home health service (06) | DRG 291 ==
LOC: 2ANU 13:56 → EMEROO 13:56 → 2ANU 16:32
PROVIDERS: ADMIT Internal Medicine; ATTEND Internal Medicine

== ENCOUNTER 2019-10-31 20:36 | Observation (INO) ==
[2019-10-31] MEDS ORDERED: Ipratropium/Albuterol Neb 3 ML IH ONE (21:02)
[2019-10-31] MEDS ORDERED: Furosemide 20 MG/2 ML VIAL IVP ONE (21:50)
[2019-11-01] MEDS ORDERED: Naloxone 0.4 MG/ML INJ IVP PRN (02:56)
[2019-11-01] MEDS ORDERED: Albuterol 2.5 MG/3 ML NEBULIZER IH PRN (03:26)
[2019-11-01] MEDS: Ipratropium/Albuterol Neb 3 ML IH SCH ×4 (04:07→22:55)
[2019-11-01] MEDS: Azithromycin 500 MG in 0.9 % Sodium Chloride 250 ML IVPB SCH (04:39)
[2019-11-01 05:25] LABS: Basophils % 0.4 %; Eosinophils # 0.1 K/mcL (0.0-0.6); Eosinophils % 1.6 %; Hematocrit 35.7 % (37.5-50.1); Hemoglobin 12.1 g/dL (12.9-16.9); Immature Granulocytes % 0.3 % (0-4); Lymphocytes # 0.9 K/mcL (0.6-4.6); Lymphocytes % 13.7 %; Mean Corpuscular HGB Conc 33.9 g/dL (31.6-35.5); Mean Corpuscular Hemoglobin 32.4 pg (28.0-33.3); Mean Corpuscular Volume 95.5 fL (83.0-100.0); Mean Platelet Volume 9.8 fL (9.4-12.4); Monocytes # 0.6 K/mcL (0.0-1.3); Monocytes % 8.4 %; Neutrophils # 5.2 K/mcL (1.6-8.9); Platelet Count 175 K/mcL (140-400); Red Blood Count 3.74 M/mcL (4.19-5.50); Red Cell Distribution Width 15.2 % (11.5-14.5); Segmented Neutrophils % 75.6 %; White Blood Count 6.9 K/mcL (4.3-11.1)
[2019-11-01] MEDS: *HR* Heparin 5,000 UNIT/ML VIAL SQ SCH ×2 (05:43→17:08)
[2019-11-01 05:52] LABS: Albumin 3.5 g/dL (3.5-5.7); Albumin/Globulin Ratio 1.1 (1.1-2.2); Bilirubin,Total 1.5 mg/dL (0.3-1.0); Calcium 9.2 mg/dL (8.6-10.3); Globulin 3.1 g/dL (2.4-3.5); Magnesium 1.9 mg/dL (1.6-2.6); Phosphorous 2.7 mg/dL (2.7-4.5); Potassium 3.3 mEq/L (3.5-5.1); Total Protein 6.6 g/dL (6.4-8.9); Troponin I 0.09 ng/mL (< 0.04)
[2019-11-01] MEDS: Nicotine 21 MG PATCH.TD24 TD SCH (06:12)
[2019-11-01] MEDS: Furosemide 40 MG/4 ML VIAL IVP SCH (09:44)
[2019-11-01 17:27] LABS: Hepatitis B Surface Antibody < 3.10 mIU/mL
[2019-11-01 17:38] LABS: Hepatitis B Surface Antigen Nonreactive (Nonreactive)
[2019-11-02] MEDS: Azithromycin 500 MG in 0.9 % Sodium Chloride 250 ML IVPB SCH (03:08)
[2019-11-02] MEDS: Ipratropium/Albuterol Neb 3 ML IH SCH ×2 (04:33→10:20)
[2019-11-02] MEDS: *HR* Heparin 5,000 UNIT/ML VIAL SQ SCH (05:55)
[2019-11-02] MEDS ORDERED: 0.9 % Sodium Chloride 250 ML IVC PRN (08:57)
[2019-11-02] MEDS ORDERED: Metoprolol XL (24 HR) Succ 25 MG TAB.ER.24H PO SCH (09:00)
[2019-11-02] MEDS ORDERED: Aspirin Enteric Coated 81 MG Tablet PO SCH (09:00)
[2019-11-02] MEDS ORDERED: 0.9 % Sodium Chloride 1,000 ML PRIME SCH (09:00)
[2019-11-02] MEDS ORDERED: amLODIPine 5 MG TABLET PO SCH (09:00)
[2019-11-02] MEDS: Furosemide 40 MG/4 ML VIAL IVP SCH (09:04)
[2019-11-02] MEDS: Nicotine 21 MG PATCH.TD24 TD SCH (09:12)
[2019-11-02 13:29] VITALS: BP 151/72
== END 2019-11-02 14:14 | disposition home or self-care (01) ==
LOC: EMEROOARM 20:36 → 3BNU 20:36
PROVIDERS: ADMIT Internal Medicine; ATTEND Internal Medicine

== ENCOUNTER 2020-06-22 18:51 | Inpatient (IN) ==
[2020-06-22] MEDS ORDERED: Ipratropium/Albuterol Neb 3 ML IH ONE (19:24)
[2020-06-22] MEDS ORDERED: methylPREDNISolone 125 MG/2 ML VIAL IVP ONE (19:24)
[2020-06-22 19:28] LABS: Basophils # 0.1 K/mcL (0.0-0.2); Basophils % 0.5 %; Eosinophils # 0.2 K/mcL (0.0-0.6); Eosinophils % 1.9 %; Hematocrit 44.6 % (37.5-50.1); Hemoglobin 14.4 g/dL (12.9-16.9); Immature Granulocytes % 0.5 % (0-4); Lymphocytes # 0.6 K/mcL (0.6-4.6); Lymphocytes % 4.8 %; Mean Corpuscular HGB Conc 32.3 g/dL (31.6-35.5); Mean Corpuscular Hemoglobin 32.4 pg (28.0-33.3); Mean Corpuscular Volume 100.2 fL (83.0-100.0); Mean Platelet Volume 10.2 fL (9.4-12.4); Monocytes # 0.9 K/mcL (0.0-1.3); Monocytes % 7.2 %; Neutrophils # 10.1 K/mcL (1.6-8.9); Platelet Count 165 K/mcL (140-400); Red Blood Count 4.45 M/mcL (4.19-5.50); Red Cell Distribution Width 15.5 % (11.5-14.5); Segmented Neutrophils % 85.1 %; White Blood Count 11.9 K/mcL (4.3-11.1)
[2020-06-22 19:47] LABS: Calcium 9.7 mg/dL (8.6-10.3); Potassium 3.3 mEq/L (3.5-5.1)
[2020-06-22 20:00] LABS: Troponin I 0.09 ng/mL (< 0.04)
[2020-06-22] MEDS ORDERED: cefTRIAXone 1,000 MG in Water for inj. (sterile) 10 ML IVP ONE (20:08)
[2020-06-22] MEDS ORDERED: Azithromycin 500 MG in 0.9 % Sodium Chloride 250 ML IVPB ONE (20:09)
[2020-06-22] MEDS ORDERED: Albuterol Sulfate 2 MG/5 ML UDC PO ONE (20:29)
[2020-06-22] MEDS ORDERED: Doxycycline 100 MG in 0.9 % Sodium Chloride Mini Bag 100 ML IVPB ONE (20:59)
[2020-06-22 22:04] LABS: Adenovirus Not Detected (Not Detect); Bordetella Pertussis Not Detected (Not Detect); Chlamydophila pneumoniae Not Detected (Not Detect); Coronavirus 229E Not Detected (Not Detect); Coronavirus HKU1 Not Detected (Not Detect); Coronavirus NL63 Not Detected (Not Detect); Coronavirus OC43 Not Detected (Not Detect); Human Metapneumovirus Not Detected (Not Detect); Human Rhinovirus/Enterovirus Not Detected (Not Detect); Influenza A Subtype 2009 H1 Not Detected (Not Detect); Influenza B Not Detected (Not Detect); Mycoplasma pneumoniae Not Detected (Not Detect); Parainfluenza Virus 1 Not Detected (Not Detect); Parainfluenza Virus 2 Not Detected (Not Detect); Parainfluenza Virus 3 Not Detected (Not Detect); Parainfluenza Virus 4 Not Detected (Not Detect); Respiratory Syncytial Virus Not Detected (Not Detect)
[2020-06-22] MEDS ORDERED: *HR* Promethazine 25 MG/ML VIAL IVP PRN (22:18)
[2020-06-22] MEDS ORDERED: Naloxone 0.4 MG/ML INJ IVP PRN (22:18)
[2020-06-22] MEDS ORDERED: Ipratropium/Albuterol Neb 3 ML IH PRN (22:20)
[2020-06-22] MEDS ORDERED: *HR* Heparin 5,000 UNIT/ML VIAL SQ SCH (22:30)
[2020-06-22] MEDS ORDERED: Perflutren Lipid Microsphere 1.3 ML in 0.9 % Sodium Chloride 8.7 ML IVP PRN (23:18)
[2020-06-22] MEDS ORDERED: Furosemide 20 MG/2 ML VIAL IVP ONE (23:19)
[2020-06-23 01:52] LABS: Basophils % 0.2 %; Eosinophils % 0.1 %; Hematocrit 41.5 % (37.5-50.1); Hemoglobin 13.5 g/dL (12.9-16.9); Immature Granulocytes % 0.3 % (0-4); Lymphocytes # 0.3 K/mcL (0.6-4.6); Lymphocytes % 3.2 %; Mean Corpuscular HGB Conc 32.5 g/dL (31.6-35.5); Mean Corpuscular Hemoglobin 32.5 pg (28.0-33.3); Mean Corpuscular Volume 99.8 fL (83.0-100.0); Mean Platelet Volume 10.3 fL (9.4-12.4); Monocytes # 0.1 K/mcL (0.0-1.3); Monocytes % 1.1 %; Platelet Count 161 K/mcL (140-400); Red Blood Count 4.16 M/mcL (4.19-5.50); Red Cell Distribution Width 15.5 % (11.5-14.5); Segmented Neutrophils % 95.1 %; White Blood Count 9.4 K/mcL (4.3-11.1)
[2020-06-23 01:53] LABS: INR 1.1
[2020-06-23 02:08] LABS: Albumin 3.6 g/dL (3.5-5.7); Bilirubin,Total 2.1 mg/dL (0.3-1.0); Calcium 9.3 mg/dL (8.6-10.3); Globulin 3.7 g/dL (2.4-3.5); Magnesium 1.9 mg/dL (1.6-2.6); Phosphorous 3.7 mg/dL (2.7-4.5); Total Protein 7.3 g/dL (6.4-8.9)
[2020-06-23 02:20] LABS: Thyroid Stimulating Hormone 1.153 mcIU/mL (0.340-5.600)
[2020-06-23] MEDS ORDERED: *HR* Heparin 5,000 UNIT/ML VIAL IVP PRN ×2 (02:55)
[2020-06-23] MEDS ORDERED: *HR* Heparin 5,000 UNIT/ML VIAL IVP ONE (02:55)
[2020-06-23] MEDS ORDERED: Heparin 25,000UNIT/250ML 1/2NS 25,000 UNIT/250 ML IV.SOLN IVC SCH (03:00)
[2020-06-23 03:45] LABS: Mean Corpuscular HGB Conc 32.5 g/dL (31.6-35.5); Mean Corpuscular Hemoglobin 32.2 pg (28.0-33.3); Mean Platelet Volume 10.3 fL (9.4-12.4); Platelet Count 159 K/mcL (140-400); Red Blood Count 4.04 M/mcL (4.19-5.50); Red Cell Distribution Width 15.4 % (11.5-14.5); White Blood Count 8.6 K/mcL (4.3-11.1)
[2020-06-23 03:48] LABS: Heparin anti-factor XA UFH < 0.04 IU/mL (0.30-0.70); INR 1.1; Prothrombin Time 12.8 Seconds (9.4-12.1)
[2020-06-23] MEDS ORDERED: MethylPREDNISolone 40 MG/ML VIAL IVP SCH (04:00)
[2020-06-23] MEDS: cefTRIAXone 1,000 MG in Water for inj. (sterile) 10 ML IVP SCH (08:47)
[2020-06-23] MEDS: amLODIPine 5 MG TABLET PO SCH (08:48)
[2020-06-23] MEDS: Aspirin Enteric Coated 81 MG Tablet PO SCH (08:48)
[2020-06-23] MEDS: Furosemide 20 MG TABLET PO SCH (08:48)
[2020-06-23] MEDS: Metoprolol XL (24 HR) Succ 25 MG TAB.ER.24H PO SCH (08:50)
[2020-06-23] MEDS: Nicotine 14 MG PATCH.TD24 TD SCH (08:51)
[2020-06-23] MEDS ORDERED: Doxycycline 100 MG in 0.9 % Sodium Chloride Mini Bag 100 ML IVPB SCH (09:00)
[2020-06-23 09:10] LABS: Hepatitis B Surface Antibody < 3.10 mIU/mL
[2020-06-23 09:20] LABS: Hepatitis B Surface Antigen Nonreactive (Nonreactive)
[2020-06-23] MEDS: Ipratropium/Albuterol Neb 3 ML IH SCH ×3 (11:26→20:28)
[2020-06-23 11:28] LABS: Troponin I 0.16 ng/mL (< 0.04)
[2020-06-23 13:34] LABS: RBC,Pleural Fluid 4000 RBC/mcL
[2020-06-23 13:38] LABS: Appearance of Pleural Fl Hazy (Clear)
[2020-06-23 13:43] LABS: Total Protein,Pleural Fluid 3.4 g/dL
[2020-06-23] MEDS: Doxycycline 100 MG CAPSULE PO SCH ×2 (15:25→21:17)
[2020-06-23 15:40] LABS: Basophils,Pleural Fluid 0 %
[2020-06-23] MEDS: MethylPREDNISolone 40 MG/ML VIAL IVP SCH (18:26)
[2020-06-24] MEDS: Ipratropium/Albuterol Neb 3 ML IH SCH ×7 (00:16→23:42)
[2020-06-24 01:44] LABS: Basophils % 0.1 %; Hematocrit 37.9 % (37.5-50.1); Hemoglobin 12.4 g/dL (12.9-16.9); Immature Granulocytes % 0.5 % (0-4); Lymphocytes # 0.4 K/mcL (0.6-4.6); Mean Corpuscular HGB Conc 32.7 g/dL (31.6-35.5); Mean Corpuscular Hemoglobin 32.6 pg (28.0-33.3); Mean Corpuscular Volume 99.7 fL (83.0-100.0); Mean Platelet Volume 10.4 fL (9.4-12.4); Monocytes # 0.4 K/mcL (0.0-1.3); Monocytes % 3.1 %; Neutrophils # 11.1 K/mcL (1.6-8.9); Platelet Count 166 K/mcL (140-400); Red Cell Distribution Width 15.7 % (11.5-14.5); Segmented Neutrophils % 93.3 %; White Blood Count 11.9 K/mcL (4.3-11.1)
[2020-06-24 02:08] LABS: Calcium 9.4 mg/dL (8.6-10.3); Magnesium 1.8 mg/dL (1.6-2.6); Potassium 3.9 mEq/L (3.5-5.1)
[2020-06-24] MEDS: MethylPREDNISolone 40 MG/ML VIAL IVP SCH (05:36)
[2020-06-24] MEDS ORDERED: 0.9 % Sodium Chloride 250 ML IVC PRN (08:15)
[2020-06-24] MEDS ORDERED: 0.9 % Sodium Chloride 1,000 ML PRIME SCH (08:15)
[2020-06-24] MEDS: cefTRIAXone 1,000 MG in Water for inj. (sterile) 10 ML IVP SCH (08:23)
[2020-06-24] MEDS: Nicotine 14 MG PATCH.TD24 TD SCH (08:23)
[2020-06-24] MEDS: Aspirin Enteric Coated 81 MG Tablet PO SCH (08:24)
[2020-06-24] MEDS: Doxycycline 100 MG CAPSULE PO SCH ×2 (08:24→20:30)
[2020-06-24] MEDS: amLODIPine 5 MG TABLET PO SCH (13:08)
[2020-06-24] MEDS: Metoprolol XL (24 HR) Succ 25 MG TAB.ER.24H PO SCH (13:09)
[2020-06-24] MEDS: Furosemide 20 MG TABLET PO SCH (13:09)
[2020-06-24] MEDS ORDERED: Nitroglycerin 0.4 MG TAB.SUBL SL PRN (15:01)
[2020-06-24] MEDS: lisinopriL 5 MG TABLET PO SCH (16:22)
[2020-06-24] MEDS: *HR* Heparin 5,000 UNIT/ML VIAL SQ SCH (17:51)
[2020-06-25] MEDS: Ipratropium/Albuterol Neb 3 ML IH SCH ×3 (03:23→11:06)
[2020-06-25] MEDS: *HR* Heparin 5,000 UNIT/ML VIAL SQ SCH (05:49)
[2020-06-25 07:03] LABS: Calcium 9.6 mg/dL (8.6-10.3); Magnesium 1.7 mg/dL (1.6-2.6); Phosphorous 3.1 mg/dL (2.7-4.5)
[2020-06-25] MEDS ORDERED: predniSONE 20 MG TABLET PO SCH (09:00)
[2020-06-25] MEDS: Furosemide 20 MG TABLET PO SCH (09:09)
[2020-06-25] MEDS: Doxycycline 100 MG CAPSULE PO SCH (09:09)
[2020-06-25] MEDS: amLODIPine 5 MG TABLET PO SCH (09:09)
[2020-06-25] MEDS: Aspirin Enteric Coated 81 MG Tablet PO SCH (09:09)
[2020-06-25] MEDS: lisinopriL 5 MG TABLET PO SCH (09:10)
[2020-06-25] MEDS: Nicotine 14 MG PATCH.TD24 TD SCH (09:10)
[2020-06-25] MEDS: Metoprolol XL (24 HR) Succ 25 MG TAB.ER.24H PO SCH (09:10)
[2020-06-25 10:48] VITALS: BP 119/64
== END 2020-06-25 12:15 | disposition home or self-care (01) | DRG 280 ==
LOC: 2ANU 18:51 → EMEROOARM 18:51 → SUATTDRO 22:12 → 2ANU 22:47
PROVIDERS: ADMIT Student in an Organized Health Care Education/Training Program; ATTEND Internal Medicine

== ENCOUNTER 2020-07-27 14:29 | Observation (INO) ==
[2020-07-27 15:00] LABS: Basophils # 0.1 K/mcL (0.0-0.2); Basophils % 0.6 %; Eosinophils # 0.4 K/mcL (0.0-0.6); Eosinophils % 4.4 %; Hematocrit 37.2 % (37.5-50.1); Hemoglobin 11.9 g/dL (12.9-16.9); Immature Granulocytes % 0.2 % (0-4); Lymphocytes % 12.6 %; Mean Corpuscular Hemoglobin 32.8 pg (28.0-33.3); Mean Corpuscular Volume 102.5 fL (83.0-100.0); Monocytes # 0.6 K/mcL (0.0-1.3); Monocytes % 7.2 %; Platelet Count 206 K/mcL (140-400); Red Blood Count 3.63 M/mcL (4.19-5.50); Red Cell Distribution Width 15.7 % (11.5-14.5)
[2020-07-27 15:27] LABS: Albumin 3.6 g/dL (3.5-5.7); Bilirubin,Total 1.6 mg/dL (0.3-1.0); Calcium 9.7 mg/dL (8.6-10.3); Globulin 3.5 g/dL (2.4-3.5); Potassium 3.8 mEq/L (3.5-5.1); Total Protein 7.1 g/dL (6.4-8.9); Troponin I 0.07 ng/mL (< 0.04)
[2020-07-27] MEDS ORDERED: *HR* HYDROcodone/Acet 5/325 mg TABLET PO PRN (16:06)
[2020-07-27] MEDS ORDERED: Naloxone 0.4 MG/ML INJ IVP PRN (16:06)
[2020-07-27] MEDS ORDERED: Nitroglycerin 0.4 MG TAB.SUBL SL PRN (16:10)
[2020-07-27] MEDS ORDERED: Ipratropium/Albuterol Neb 3 ML IH PRN (16:10)
[2020-07-27] MEDS: *HR* Heparin 5,000 UNIT/ML VIAL SQ SCH (18:54)
[2020-07-27] MEDS: Furosemide 40 MG/4 ML VIAL IVP SCH ×2 (18:56→21:50)
[2020-07-28 02:56] LABS: Prothrombin Time 11.8 Seconds (9.4-12.1)
[2020-07-28 02:59] LABS: Activated Partial Thrombo Time 32.9 Seconds (26.0-36.0); Basophils % 0.6 %; Eosinophils # 0.5 K/mcL (0.0-0.6); Eosinophils % 7.3 %; Hemoglobin 11.8 g/dL (12.9-16.9); Immature Granulocytes % 0.3 % (0-4); Lymphocytes # 1.1 K/mcL (0.6-4.6); Lymphocytes % 16.2 %; Mean Corpuscular HGB Conc 32.8 g/dL (31.6-35.5); Mean Corpuscular Hemoglobin 33.4 pg (28.0-33.3); Mean Platelet Volume 10.2 fL (9.4-12.4); Monocytes # 0.6 K/mcL (0.0-1.3); Monocytes % 9.1 %; Neutrophils # 4.5 K/mcL (1.6-8.9); Platelet Count 198 K/mcL (140-400); Red Blood Count 3.53 M/mcL (4.19-5.50); Red Cell Distribution Width 15.8 % (11.5-14.5); Segmented Neutrophils % 66.5 %; White Blood Count 6.7 K/mcL (4.3-11.1)
[2020-07-28 03:08] LABS: Calcium 9.6 mg/dL (8.6-10.3); Magnesium 2.1 mg/dL (1.6-2.6); Phosphorous 4.5 mg/dL (2.7-4.5); Potassium 3.9 mEq/L (3.5-5.1)
[2020-07-28] MEDS: *HR* Heparin 5,000 UNIT/ML VIAL SQ SCH ×2 (05:59→17:51)
[2020-07-28] MEDS ORDERED: levoFLOXacin 750 MG TABLET PO SCH (07:30)
[2020-07-28] MEDS ORDERED: levoFLOXacin 750 MG/150 ML 750 MG/150 ML BAG IVPB ONE (08:00)
[2020-07-28] MEDS ORDERED: *HR* Heparin 10,000 UNIT/10 ML VIAL IV PRN (08:04)
[2020-07-28] MEDS ORDERED: 0.9 % Sodium Chloride 250 ML IVC PRN (08:04)
[2020-07-28] MEDS ORDERED: 0.9 % Sodium Chloride 1,000 ML PRIME SCH (08:15)
[2020-07-28] MEDS: lisinopriL 5 MG TABLET PO SCH (08:22)
[2020-07-28] MEDS: Aspirin Enteric Coated 81 MG Tablet PO SCH (08:22)
[2020-07-28] MEDS: amLODIPine 5 MG TABLET PO SCH (08:23)
[2020-07-28] MEDS: Furosemide 40 MG/4 ML VIAL IVP SCH ×2 (08:23→20:41)
[2020-07-28] MEDS: Metoprolol XL (24 HR) Succ 50 MG TAB.ER.24H PO SCH (08:23)
[2020-07-28 10:58] LABS: Hepatitis B Surface Antibody < 3.10 mIU/mL
[2020-07-28 11:09] LABS: Hepatitis B Surface Antigen Nonreactive (Nonreactive)
[2020-07-28 16:32] LABS: Appearance of Pleural Fl Cloudy (Clear)
[2020-07-28 16:47] LABS: Amylase,Pleural Fluid 48 Units/L (No Ref Range); Glucose,Pleural Fluid 103 mg/dL (No Ref Range); LDH,Pleural Fluid 145 Units/L (No Ref Range); Total Protein,Pleural Fluid < 3.0 g/dL
[2020-07-28 16:48] LABS: RBC,Pleural Fluid 9000 RBC/mcL
[2020-07-29 05:06] LABS: Basophils % 0.4 %; Eosinophils # 0.4 K/mcL (0.0-0.6); Eosinophils % 6.3 %; Hematocrit 36.1 % (37.5-50.1); Immature Granulocytes % 0.3 % (0-4); Lymphocytes # 1.2 K/mcL (0.6-4.6); Lymphocytes % 16.6 %; Mean Corpuscular HGB Conc 33.2 g/dL (31.6-35.5); Mean Corpuscular Volume 99.2 fL (83.0-100.0); Mean Platelet Volume 9.7 fL (9.4-12.4); Monocytes # 0.6 K/mcL (0.0-1.3); Monocytes % 8.5 %; Neutrophils # 4.7 K/mcL (1.6-8.9); Platelet Count 191 K/mcL (140-400); Red Blood Count 3.64 M/mcL (4.19-5.50); Red Cell Distribution Width 15.5 % (11.5-14.5); Segmented Neutrophils % 67.9 %; White Blood Count 6.9 K/mcL (4.3-11.1)
[2020-07-29 05:26] LABS: Calcium 9.2 mg/dL (8.6-10.3); Phosphorous 3.9 mg/dL (2.7-4.5); Potassium 4.1 mEq/L (3.5-5.1)
[2020-07-29] MEDS: *HR* Heparin 5,000 UNIT/ML VIAL SQ SCH (05:47)
[2020-07-29] MEDS ORDERED: *HR* Heparin 10,000 UNIT/10 ML VIAL IV PRN (07:25)
[2020-07-29] MEDS ORDERED: 0.9 % Sodium Chloride 250 ML IVC PRN (07:25)
[2020-07-29] MEDS ORDERED: 0.9 % Sodium Chloride 1,000 ML PRIME SCH (07:30)
[2020-07-29] MEDS: Furosemide 40 MG/4 ML VIAL IVP SCH (12:10)
[2020-07-29] MEDS: Aspirin Enteric Coated 81 MG Tablet PO SCH (12:10)
[2020-07-29] MEDS: lisinopriL 5 MG TABLET PO SCH (12:10)
[2020-07-29] MEDS: amLODIPine 5 MG TABLET PO SCH (12:11)
[2020-07-29] MEDS: Metoprolol XL (24 HR) Succ 50 MG TAB.ER.24H PO SCH (12:12)
[2020-07-29 15:25] VITALS: BP 108/61
[2020-07-30] MEDS ORDERED: levoFLOXacin 500 MG/100 ML 500 MG/100 ML BAG IVPB SCH (14:00)
== END 2020-07-29 17:03 | disposition home or self-care (01) ==
LOC: 2ANU 14:29 → EMEROOARM 14:29 → SUATTDRO 17:15 → 2ANU 18:00
PROVIDERS: ADMIT Internal Medicine; ATTEND Internal Medicine

== ENCOUNTER 2021-04-06 02:25 | Inpatient (IN) ==
[2021-04-06 02:42] LABS: ABG Base Excess -10 mEq/L (-2 to 3); ABG HCO3 17 mEq/L (21-27); ABG Oxygen Saturation 96 % (95-98); ABG PCO2 40 mmHg (35-45); ABG PH 7.24 pH Units (7.32-7.45); ABG PO2 97 mmHg (85-104); ABG TCO2 18 mEq/L (20-26); Blood Gas Modality BiLevel
[2021-04-06 02:52] LABS: Basophils # 0.1 K/mcL (0.0-0.2); Basophils % 0.5 %; Eosinophils # 1.9 K/mcL (0.0-0.6); Eosinophils % 10.1 %; Hematocrit 30.8 % (37.5-50.1); Immature Granulocytes % 0.6 % (0-4); Lymphocytes # 7.5 K/mcL (0.6-4.6); Lymphocytes % 39.7 %; Mean Corpuscular HGB Conc 32.5 g/dL (31.6-35.5); Mean Corpuscular Hemoglobin 36.2 pg (28.0-33.3); Mean Corpuscular Volume 111.6 fL (83.0-100.0); Mean Platelet Volume 9.8 fL (9.4-12.4); Monocytes # 0.9 K/mcL (0.0-1.3); Monocytes % 4.7 %; Neutrophils # 8.4 K/mcL (1.6-8.9); Platelet Count 323 K/mcL (140-400); Red Blood Count 2.76 M/mcL (4.19-5.50); Red Cell Distribution Width 13.7 % (11.5-14.5); Segmented Neutrophils % 44.4 %
[2021-04-06 02:57] LABS: VBG HCO3 17 mEq/L (21-27); VBG PCO2 53 mmHg (41-51); VBG PH 7.12 pH Units (7.32-7.42); VBG PO2 140 mmHg (25-50)
[2021-04-06 02:59] LABS: Prothrombin Time 11.5 Seconds (9.4-12.1)
[2021-04-06 03:01] LABS: Activated Partial Thrombo Time 29.1 Seconds (26.0-36.0)
[2021-04-06 03:10] LABS: Anisocytosis 1+ (Not Present); Poikilocytosis 1+ (Not Present)
[2021-04-06 03:11] LABS: Platelet Estimate Normal (Normal)
[2021-04-06] MEDS ORDERED: Piperacillin/Tazobactam 3.375 GM in 0.9 % Sodium Chloride Mini Bag 100 ML IVPB ONE (03:23)
[2021-04-06 03:25] LABS: Albumin 3.7 g/dL (3.5-5.7); Albumin/Globulin Ratio 1.1 (1.1-2.2); Bilirubin,Direct 0.1 mg/dL (0.0-0.2); Bilirubin,Indirect 0.4 mg/dL (0.0-1.0); Bilirubin,Total 0.5 mg/dL (0.3-1.0); Calcium 8.9 mg/dL (8.6-10.3); Globulin 3.5 g/dL (2.4-3.5); Magnesium 2.6 mg/dL (1.6-2.6); Phosphorous 7.9 mg/dL (2.7-4.5); Potassium 3.8 mEq/L (3.5-5.1); Total Protein 7.2 g/dL (6.4-8.9); Troponin I 0.07 ng/mL (< 0.04)
[2021-04-06] MEDS ORDERED: Furosemide 40 MG/4 ML VIAL IVP ONE (04:28)
[2021-04-06] MEDS ORDERED: 0.9 % Sodium Chloride 250 ML IVC PRN (04:35)
[2021-04-06] MEDS ORDERED: 0.9 % Sodium Chloride 1,000 ML PRIME SCH (04:45)
[2021-04-06] MEDS ORDERED: Naloxone 0.4 MG/ML INJ IVP PRN (05:32)
[2021-04-06 06:55] LABS: Bacteria,Urine Few per hpf (None-Few); Bilirubin,Urine Negative (Negative); Blood,Urine Trace (Negative); Clarity,Urine Clear (Clear); Color,Urine Light-Yellow (Yellow); Glucose,Urine (UA) 200 mg/dL (Normal); Ketones,Urine Negative (Negative); Leukocyte Esterase,Urine Negative (Negative); Mucus,Urine Few per lpf (None-Few); Nitrite,Urine Negative (Negative); PH,Urine 7.5 pH Units (5.0-8.0); Protein,Urine 100 mg/dL (Neg-Trace); RBC,Urine 0-3 per hpf (0-3); Specific Gravity,Urine 1.014 (1.010-1.025); Urobilinogen,Urine Normal (Normal); WBC,Urine 0-3 per hpf (0-3)
[2021-04-06] MEDS ORDERED: *HR* Heparin 5,000 UNIT/ML VIAL SQ SCH (07:00)
[2021-04-06] MEDS ORDERED: Acetaminophen IV 1,000 MG/100 ML BAG IVPB ONE (07:30)
[2021-04-06 08:51] LABS: Adenovirus Not Detected (Not Detect); Bordetella Pertussis Not Detected (Not Detect); Chlamydophila pneumoniae Not Detected (Not Detect); Coronavirus 229E Not Detected (Not Detect); Coronavirus HKU1 Not Detected (Not Detect); Coronavirus NL63 Not Detected (Not Detect); Coronavirus OC43 Not Detected (Not Detect); Human Metapneumovirus Not Detected (Not Detect); Human Rhinovirus/Enterovirus Not Detected (Not Detect); Influenza A Subtype 2009 H1 Not Detected (Not Detect); Influenza B Not Detected (Not Detect); Mycoplasma pneumoniae Not Detected (Not Detect); Parainfluenza Virus 1 Not Detected (Not Detect); Parainfluenza Virus 2 Not Detected (Not Detect); Parainfluenza Virus 3 Not Detected (Not Detect); Parainfluenza Virus 4 Not Detected (Not Detect); Respiratory Syncytial Virus Not Detected (Not Detect); SARS-CoV-2 Not Detected (Not Detect)
[2021-04-06] MEDS ORDERED: *HR* Heparin 5,000 UNIT/ML VIAL IVP PRN ×2 (14:05)
[2021-04-06] MEDS ORDERED: *HR* Heparin 5,000 UNIT/ML VIAL IVP ONE (14:05)
[2021-04-06] MEDS ORDERED: Perflutren Lipid Microsphere 1.3 ML in 0.9 % Sodium Chloride 8.7 ML IVP PRN (14:11)
[2021-04-06 14:13] LABS: Hepatitis B Surface Antibody < 3.10 mIU/mL
[2021-04-06] MEDS ORDERED: Aspirin 81 MG TAB.CHEW PO SCH (14:15)
[2021-04-06 14:24] LABS: Hepatitis B Surface Antigen Nonreactive (Nonreactive)
[2021-04-06] MEDS: Heparin 25,000UNIT/250ML 1/2NS 25,000 UNIT/250 ML IV.SOLN IVC SCH (15:02)
[2021-04-06 15:29] LABS: Heparin anti-factor XA UFH 0.07 IU/mL (0.30-0.70); INR 1.1; Prothrombin Time 12.2 Seconds (9.4-12.1)
[2021-04-06 15:31] LABS: Activated Partial Thrombo Time 28.6 Seconds (26.0-36.0)
[2021-04-06 16:04] LABS: Hemoglobin 9.6 g/dL (12.9-16.9); Mean Corpuscular HGB Conc 33.1 g/dL (31.6-35.5); Mean Corpuscular Hemoglobin 34.7 pg (28.0-33.3); Mean Corpuscular Volume 104.7 fL (83.0-100.0); Mean Platelet Volume 9.5 fL (9.4-12.4); Platelet Count 219 K/mcL (140-400); Red Blood Count 2.77 M/mcL (4.19-5.50); Red Cell Distribution Width 13.8 % (11.5-14.5); White Blood Count 12.6 K/mcL (4.3-11.1)
[2021-04-06] MEDS: Furosemide 20 MG TABLET PO SCH (16:24)
[2021-04-06] MEDS: Metoprolol XL (24 HR) Succ 50 MG TAB.ER.24H PO SCH (16:24)
[2021-04-07 05:18] LABS: Hematocrit 27.4 % (37.5-50.1); Hemoglobin 9.1 g/dL (12.9-16.9); Mean Corpuscular HGB Conc 33.2 g/dL (31.6-35.5); Mean Corpuscular Volume 105.4 fL (83.0-100.0); Mean Platelet Volume 9.7 fL (9.4-12.4); Platelet Count 240 K/mcL (140-400); Red Cell Distribution Width 14.1 % (11.5-14.5); White Blood Count 10.4 K/mcL (4.3-11.1)
[2021-04-07 05:33] LABS: Calcium 8.9 mg/dL (8.6-10.3)
[2021-04-07] MEDS ORDERED: 0.9 % Sodium Chloride 250 ML IVC PRN (07:27)
[2021-04-07] MEDS: amLODIPine 5 MG TABLET PO SCH (09:55)
[2021-04-07] MEDS: Metoprolol XL (24 HR) Succ 50 MG TAB.ER.24H PO SCH (09:55)
[2021-04-07] MEDS: Aspirin Enteric Coated 81 MG Tablet PO SCH (09:55)
[2021-04-07] MEDS: Metoprolol XL (24 HR) Succ 25 MG TAB.ER.24H PO SCH (20:38)
[2021-04-07] MEDS: Heparin 25,000UNIT/250ML 1/2NS 25,000 UNIT/250 ML IV.SOLN IVC SCH (21:43)
[2021-04-08 03:01] LABS: Basophils # 0.1 K/mcL (0.0-0.2); Basophils % 0.6 %; Eosinophils % 8.8 %; Hematocrit 28.5 % (37.5-50.1); Hemoglobin 9.7 g/dL (12.9-16.9); Immature Granulocytes % 0.6 % (0-4); Lymphocytes # 2.4 K/mcL (0.6-4.6); Lymphocytes % 22.3 %; Mean Corpuscular Hemoglobin 35.8 pg (28.0-33.3); Mean Corpuscular Volume 105.2 fL (83.0-100.0); Mean Platelet Volume 9.5 fL (9.4-12.4); Monocytes # 1.1 K/mcL (0.0-1.3); Monocytes % 10.3 %; Neutrophils # 6.2 K/mcL (1.6-8.9); Platelet Count 243 K/mcL (140-400); Red Blood Count 2.71 M/mcL (4.19-5.50); Red Cell Distribution Width 14.4 % (11.5-14.5); Segmented Neutrophils % 57.4 %; White Blood Count 10.9 K/mcL (4.3-11.1)
[2021-04-08 03:19] LABS: Calcium 9.2 mg/dL (8.6-10.3); Potassium 4.1 mEq/L (3.5-5.1)
[2021-04-08] MEDS: Aspirin Enteric Coated 81 MG Tablet PO SCH (08:22)
[2021-04-08] MEDS: Metoprolol XL (24 HR) Succ 25 MG TAB.ER.24H PO SCH (08:22)
[2021-04-08] MEDS: amLODIPine 5 MG TABLET PO SCH (08:23)
[2021-04-08] MEDS: Furosemide 20 MG TABLET PO SCH (08:26)
[2021-04-08] MEDS ORDERED: Renal Vitamin 1 CAP CAPSULE PO SCH (09:00)
[2021-04-08 10:23] VITALS: BP 105/59
== END 2021-04-08 12:58 | disposition home or self-care (01) | DRG 280 ==
LOC: EMEROOARM 02:25 → ICNU 05:39 → 2ANU 18:41
PROVIDERS: ADMIT Family Medicine; ATTEND Family Medicine

== ENCOUNTER 2021-07-04 15:21 | Observation (INO) ==
[2021-07-04] MEDS ORDERED: Melatonin 3 MG TABLET PO PRN (20:20)
[2021-07-04] MEDS ORDERED: Naloxone 0.4 MG/ML INJ IVP PRN (20:20)
[2021-07-04] MEDS ORDERED: Ondansetron 4 MG/2 ML VIAL IVP PRN (20:20)
[2021-07-04 22:39] LABS: Basophils # 0.1 K/mcL (0.0-0.2); Basophils % 0.6 %; Eosinophils # 0.9 K/mcL (0.0-0.6); Eosinophils % 8.4 %; Hemoglobin 8.3 g/dL (12.9-16.9); Immature Granulocytes % 0.6 % (0-4); Lymphocytes % 18.9 %; Mean Corpuscular HGB Conc 31.9 g/dL (31.6-35.5); Mean Corpuscular Hemoglobin 34.9 pg (28.0-33.3); Mean Corpuscular Volume 109.2 fL (83.0-100.0); Mean Platelet Volume 9.8 fL (9.4-12.4); Monocytes # 0.6 K/mcL (0.0-1.3); Monocytes % 5.6 %; Neutrophils # 6.9 K/mcL (1.6-8.9); Nucleated Red Blood Cells 0.2 /100 WBC (0); Platelet Count 294 K/mcL (140-400); Red Blood Count 2.38 M/mcL (4.19-5.50); Red Cell Distribution Width 17.1 % (11.5-14.5); Segmented Neutrophils % 65.9 %; White Blood Count 10.5 K/mcL (4.3-11.1)
[2021-07-04 22:46] LABS: INR 1.1; Prothrombin Time 12.8 Seconds (9.4-12.1)
[2021-07-04 22:49] LABS: Activated Partial Thrombo Time 32.6 Seconds (26.0-36.0)
[2021-07-04 23:01] LABS: % Iron Saturation 81 % (20-55); Iron 221 mcg/dL (65-175); Transferrin 195 mg/dL (203-362)
[2021-07-04 23:03] LABS: Albumin 3.7 g/dL (3.5-5.7); Albumin/Globulin Ratio 0.9 (1.1-2.2); Bilirubin,Total 0.8 mg/dL (0.3-1.0); Calcium 9.1 mg/dL (8.6-10.3); Globulin 3.9 g/dL (2.4-3.5); Magnesium 2.3 mg/dL (1.6-2.6); Phosphorous 5.7 mg/dL (2.7-4.5); Potassium 4.1 mEq/L (3.5-5.1); Total Protein 7.6 g/dL (6.4-8.9)
[2021-07-04 23:14] LABS: Troponin I 0.06 ng/mL (< 0.04)
[2021-07-04 23:19] LABS: Ferritin > 1500 ng/mL (20-250)
[2021-07-04 23:24] LABS: Folate 15.9 ng/mL (3.0-16.0)
[2021-07-04 23:25] LABS: Vitamin B12 > 1500 pg/mL (250-1100)
[2021-07-05 03:03] LABS: Calcium 9.2 mg/dL (8.6-10.3); Potassium 4.5 mEq/L (3.5-5.1)
[2021-07-05 06:20] LABS: Troponin I 0.07 ng/mL (< 0.04)
[2021-07-05] MEDS: Pantoprazole 40 MG VIAL IVP SCH ×2 (06:49→17:03)
[2021-07-05] MEDS ORDERED: Isovue-370 500 ML BOTTLE IVP ONE (07:17)
[2021-07-05] MEDS ORDERED: 0.9 % Sodium Chloride 250 ML IVC PRN (07:35)
[2021-07-05] MEDS ORDERED: 0.9 % Sodium Chloride 1,000 ML PRIME SCH (07:45)
[2021-07-05 08:27] LABS: Hematocrit 25.1 % (37.5-50.1); Hemoglobin 8.1 g/dL (12.9-16.9); Mean Corpuscular HGB Conc 32.3 g/dL (31.6-35.5); Mean Corpuscular Hemoglobin 35.2 pg (28.0-33.3); Mean Corpuscular Volume 109.1 fL (83.0-100.0); Mean Platelet Volume 10.1 fL (9.4-12.4); Platelet Count 278 K/mcL (140-400); Red Cell Distribution Width 17.1 % (11.5-14.5); White Blood Count 9.1 K/mcL (4.3-11.1)
[2021-07-05 10:29] LABS: Hepatitis B Surface Antibody < 3.10 mIU/mL
[2021-07-05 10:41] LABS: Hepatitis B Surface Antigen Nonreactive (Nonreactive)
[2021-07-05] MEDS: Metoprolol XL (24 HR) Succ 25 MG TAB.ER.24H PO SCH (20:46)
[2021-07-06 02:34] LABS: Basophils % 0.4 %; Eosinophils # 0.9 K/mcL (0.0-0.6); Eosinophils % 9.4 %; Hematocrit 24.2 % (37.5-50.1); Hemoglobin 7.9 g/dL (12.9-16.9); Immature Granulocytes % 0.4 % (0-4); Lymphocytes # 1.5 K/mcL (0.6-4.6); Lymphocytes % 16.2 %; Mean Corpuscular HGB Conc 32.6 g/dL (31.6-35.5); Mean Corpuscular Hemoglobin 35.1 pg (28.0-33.3); Mean Corpuscular Volume 107.6 fL (83.0-100.0); Mean Platelet Volume 9.8 fL (9.4-12.4); Monocytes # 0.7 K/mcL (0.0-1.3); Neutrophils # 6.3 K/mcL (1.6-8.9); Nucleated Red Blood Cells 0.3 /100 WBC (0); Platelet Count 254 K/mcL (140-400); Red Blood Count 2.25 M/mcL (4.19-5.50); Red Cell Distribution Width 17.2 % (11.5-14.5); Segmented Neutrophils % 66.6 %; White Blood Count 9.5 K/mcL (4.3-11.1)
[2021-07-06 02:47] LABS: Calcium 9.2 mg/dL (8.6-10.3); Potassium 4.2 mEq/L (3.5-5.1)
[2021-07-06] MEDS: Pantoprazole 40 MG VIAL IVP SCH ×2 (05:26→17:14)
[2021-07-06] MEDS: Renal Vitamin 1 CAP CAPSULE PO SCH (08:37)
[2021-07-06] MEDS: Metoprolol XL (24 HR) Succ 25 MG TAB.ER.24H PO SCH ×2 (08:38→20:39)
[2021-07-06] MEDS ORDERED: amLODIPine 5 MG TABLET PO SCH (09:00)
[2021-07-06] MEDS ORDERED: Aspirin Enteric Coated 81 MG Tablet PO SCH (09:00)
[2021-07-06 09:22] LABS: Hematocrit 25.1 % (37.5-50.1); Hemoglobin 8.1 g/dL (12.9-16.9)
[2021-07-06] MEDS ORDERED: Ipratropium/Albuterol Neb 3 ML IH PRN (09:31)
[2021-07-06] MEDS: Calcium Acetate 667 MG CAPSULE PO SCH ×3 (11:37→17:13)
[2021-07-06] MEDS ORDERED: Furosemide 40 MG TABLET PO SCH (12:10)
[2021-07-06 16:56] LABS: Hematocrit 23.5 % (37.5-50.1); Hemoglobin 7.7 g/dL (12.9-16.9)
[2021-07-07 01:29] LABS: Basophils % 0.4 %; Eosinophils # 0.9 K/mcL (0.0-0.6); Eosinophils % 8.9 %; Hematocrit 22.9 % (37.5-50.1); Hemoglobin 7.5 g/dL (12.9-16.9); Immature Granulocytes % 0.5 % (0-4); Lymphocytes # 1.8 K/mcL (0.6-4.6); Lymphocytes % 17.7 %; Mean Corpuscular HGB Conc 32.8 g/dL (31.6-35.5); Mean Corpuscular Hemoglobin 35.9 pg (28.0-33.3); Mean Corpuscular Volume 109.6 fL (83.0-100.0); Mean Platelet Volume 9.4 fL (9.4-12.4); Monocytes # 0.8 K/mcL (0.0-1.3); Monocytes % 7.3 %; Neutrophils # 6.7 K/mcL (1.6-8.9); Nucleated Red Blood Cells 0.3 /100 WBC (0); Platelet Count 272 K/mcL (140-400); Red Blood Count 2.09 M/mcL (4.19-5.50); Red Cell Distribution Width 17.5 % (11.5-14.5); Segmented Neutrophils % 65.2 %; White Blood Count 10.3 K/mcL (4.3-11.1)
[2021-07-07 01:49] LABS: Potassium 4.3 mEq/L (3.5-5.1)
[2021-07-07] MEDS: Pantoprazole 40 MG VIAL IVP SCH (05:12)
[2021-07-07] MEDS ORDERED: 0.9 % Sodium Chloride 250 ML IVC PRN (07:15)
[2021-07-07] MEDS: Calcium Acetate 667 MG CAPSULE PO SCH ×2 (09:46→12:53)
[2021-07-07] MEDS: Renal Vitamin 1 CAP CAPSULE PO SCH (09:46)
[2021-07-07] MEDS: Metoprolol XL (24 HR) Succ 25 MG TAB.ER.24H PO SCH (09:46)
[2021-07-07] MEDS ORDERED: Lidocaine -MPF 2% 5 ML VIAL ONE (10:14)
[2021-07-07] MEDS ORDERED: EPHEDrine 50 MG/ML VIAL ONE (10:49)
[2021-07-07 11:42] VITALS: BP 109/55; PULSE 60; TEMP 97.4; O2SAT 96
== END 2021-07-07 14:27 | disposition left against medical advice (07) ==
LOC: 2ANU → SUATTDRO 18:54
PROVIDERS: ADMIT Internal Medicine; ATTEND Internal Medicine
PROC: ENDOEBX (2021-07-07 13:40)

== ENCOUNTER 2021-12-19 19:29 | Observation (INO) ==
[2021-12-19] MEDS ORDERED: 0.9 % Sodium Chloride 500 ML IVC ONE (20:10)
[2021-12-19] MEDS ORDERED: Acetaminophen 325 MG TABLET PO ONE (20:12)
[2021-12-19 20:21] LABS: Basophils # 0.1 K/mcL (0.0-0.2); Basophils % 0.5 %; Eosinophils # 0.6 K/mcL (0.0-0.6); Eosinophils % 4.5 %; Hematocrit 39.1 % (37.5-50.1); Hemoglobin 12.8 g/dL (12.9-16.9); Immature Granulocytes % 0.5 % (0-4); Lymphocytes # 0.6 K/mcL (0.6-4.6); Lymphocytes % 4.8 %; Mean Corpuscular HGB Conc 32.7 g/dL (31.6-35.5); Mean Corpuscular Hemoglobin 33.8 pg (28.0-33.3); Mean Corpuscular Volume 103.2 fL (83.0-100.0); Mean Platelet Volume 10.7 fL (9.4-12.4); Monocytes # 0.9 K/mcL (0.0-1.3); Monocytes % 6.8 %; Neutrophils # 10.8 K/mcL (1.6-8.9); Platelet Count 203 K/mcL (140-400); Red Blood Count 3.79 M/mcL (4.19-5.50); Red Cell Distribution Width 17.6 % (11.5-14.5); Segmented Neutrophils % 82.9 %
[2021-12-19] MEDS ORDERED: predniSONE 20 MG TABLET PO ONE (20:34)
[2021-12-19] MEDS ORDERED: Ipratropium/Albuterol Neb 3 ML IH ONE (20:36)
[2021-12-19 20:43] LABS: Calcium 9.5 mg/dL (8.6-10.3); Potassium 5.7 mEq/L (3.5-5.1); Troponin I 0.11 ng/mL (< 0.04)
[2021-12-19 21:11] LABS: Influenza A PCR Negative (Negative); Influenza B PCR Negative (Negative); Resp. Syncytial Virus PCR Negative (Negative); SARS-CoV-2 by PCR (In House) Negative (Negative)
[2021-12-19] MEDS ORDERED: Albuterol 2.5 MG/3 ML NEBULIZER IH ONE (21:11)
[2021-12-19] MEDS ORDERED: Calcium Gluconate 1gm/50mL 1 GM/50 ML BAG IVPB STA (21:12)
[2021-12-19] MEDS ORDERED: Azithromycin 500 MG in 0.9 % Sodium Chloride 250 ML IVPB ONE (21:13)
[2021-12-19] MEDS ORDERED: cefTRIAXone 1,000 MG in Water for inj. (sterile) 10 ML IVP ONE (21:13)
[2021-12-19] MEDS ORDERED: Calcium Gluconate 1gm/50mL 1 GM/50 ML BAG IVPB ONE (21:15)
[2021-12-19] MEDS ORDERED: Naloxone 0.4 MG/ML INJ IVP PRN (22:43)
[2021-12-19] MEDS ORDERED: Melatonin 3 MG TABLET PO PRN (22:43)
[2021-12-19] MEDS ORDERED: Ondansetron 4 MG/2 ML VIAL IVP PRN (22:43)
[2021-12-20] MEDS ORDERED: *HR* Heparin 5,000 UNIT/ML VIAL IVP ONE (00:24)
[2021-12-20] MEDS ORDERED: *HR* Heparin 5,000 UNIT/ML VIAL IVP PRN ×2 (00:24)
[2021-12-20] MEDS: cefTRIAXone 1,000 MG in 0.9 % Sodium Chloride Mini Bag 100 ML IVPB SCH ×2 (00:39→10:34)
[2021-12-20] MEDS: MethylPREDNISolone 40 MG/ML VIAL IVP SCH ×2 (00:54→06:10)
[2021-12-20 01:20] LABS: Hematocrit 39.6 % (37.5-50.1); Hemoglobin 12.7 g/dL (12.9-16.9); Mean Corpuscular HGB Conc 32.1 g/dL (31.6-35.5); Mean Corpuscular Hemoglobin 33.2 pg (28.0-33.3); Mean Corpuscular Volume 103.7 fL (83.0-100.0); Mean Platelet Volume 10.4 fL (9.4-12.4); Platelet Count 184 K/mcL (140-400); Red Blood Count 3.82 M/mcL (4.19-5.50); Red Cell Distribution Width 17.7 % (11.5-14.5); White Blood Count 14.7 K/mcL (4.3-11.1)
[2021-12-20 01:21] LABS: VBG HCO3 22 mEq/L (21-27); VBG PCO2 27 mmHg (41-51); VBG PH 7.51 pH Units (7.32-7.42); VBG PO2 133 mmHg (25-50)
[2021-12-20] MEDS: Heparin 25,000UNIT/250ML 1/2NS 25,000 UNIT/250 ML IV.SOLN IVC SCH (01:27)
[2021-12-20 01:41] LABS: Calcium 9.3 mg/dL (8.6-10.3); Potassium 4.3 mEq/L (3.5-5.1)
[2021-12-20 02:27] LABS: Hepatitis B Surface Antibody < 3.10 mIU/mL
[2021-12-20 02:37] LABS: Hepatitis B Surface Antigen Nonreactive (Nonreactive)
[2021-12-20] MEDS: Ipratropium/Albuterol Neb 3 ML IH SCH ×7 (03:47→23:29)
[2021-12-20] MEDS ORDERED: *HR* Heparin 10,000 UNIT/10 ML VIAL IV PRN (09:16)
[2021-12-20] MEDS ORDERED: 0.9 % Sodium Chloride 250 ML IVC PRN (09:16)
[2021-12-20] MEDS ORDERED: 0.9 % Sodium Chloride 1,000 ML PRIME SCH (09:30)
[2021-12-20] MEDS: Azithromycin 500 MG in 0.9 % Sodium Chloride 250 ML IVPB SCH (10:35)
[2021-12-20] MEDS: predniSONE 20 MG TABLET PO SCH (11:08)
[2021-12-20] MEDS: Aspirin Enteric Coated 81 MG Tablet PO SCH (11:16)
[2021-12-20] MEDS: Metoprolol XL (24 HR) Succ 25 MG TAB.ER.24H PO SCH ×2 (11:16→20:50)
[2021-12-20] MEDS ORDERED: Perflutren Lipid Microsphere 1.3 ML in 0.9 % Sodium Chloride 8.7 ML IVP PRN (11:20)
[2021-12-20] MEDS: Calcium Acetate 667 MG CAPSULE PO SCH (16:22)
[2021-12-20] MEDS: BuPROPion SR (12 HR) 150 MG TABLET PO SCH (20:50)
[2021-12-21] MEDS: Heparin 25,000UNIT/250ML 1/2NS 25,000 UNIT/250 ML IV.SOLN IVC SCH (02:55)
[2021-12-21] MEDS: Ipratropium/Albuterol Neb 3 ML IH SCH (03:50)
[2021-12-21] MEDS ORDERED: Ipratropium/Albuterol Neb 3 ML IH PRN (04:56)
[2021-12-21] MEDS: Aspirin Enteric Coated 81 MG Tablet PO SCH (07:59)
[2021-12-21] MEDS: predniSONE 20 MG TABLET PO SCH (07:59)
[2021-12-21] MEDS: Calcium Acetate 667 MG CAPSULE PO SCH ×2 (07:59→13:42)
[2021-12-21] MEDS: cefTRIAXone 1,000 MG in 0.9 % Sodium Chloride Mini Bag 100 ML IVPB SCH (07:59)
[2021-12-21] MEDS: BuPROPion SR (12 HR) 150 MG TABLET PO SCH (07:59)
[2021-12-21] MEDS: Metoprolol XL (24 HR) Succ 25 MG TAB.ER.24H PO SCH (07:59)
[2021-12-21] MEDS: Azithromycin 500 MG in 0.9 % Sodium Chloride 250 ML IVPB SCH (08:00)
[2021-12-21] MEDS ORDERED: amLODIPine 5 MG TABLET PO SCH (09:00)
[2021-12-21] MEDS ORDERED: 0.9 % Sodium Chloride 1,000 ML ONE (12:03)
[2021-12-21] MEDS ORDERED: Isovue-370 500 ML BOTTLE IVP ONE (12:28)
[2021-12-21 12:29] LABS: Hematocrit 36.7 % (37.5-50.1); Hemoglobin 11.4 g/dL (12.9-16.9); Mean Corpuscular HGB Conc 31.1 g/dL (31.6-35.5); Mean Corpuscular Hemoglobin 33.6 pg (28.0-33.3); Mean Corpuscular Volume 108.3 fL (83.0-100.0); Mean Platelet Volume 12.1 fL (9.4-12.4); Platelet Count 114 K/mcL (140-400); Red Blood Count 3.39 M/mcL (4.19-5.50); Red Cell Distribution Width 17.3 % (11.5-14.5); White Blood Count 13.5 K/mcL (4.3-11.1)
[2021-12-21 12:32] LABS: ABG Base Excess -8 mEq/L (-2 to 3); ABG HCO3 18 mEq/L (21-27); ABG Oxygen Saturation 100 % (95-98); ABG PCO2 37 mmHg (35-45); ABG PH 7.29 pH Units (7.32-7.45); ABG PO2 357 mmHg (85-104); ABG TCO2 19 mEq/L (20-26); Blood Gas Modality ASSIST CONTROL; Blood Gas VT 475 cc
[2021-12-21] MEDS ORDERED: Norepinephrine 4 MG/254 ML IV.SOLN IVC ONE (12:45)
[2021-12-21] MEDS ORDERED: Artificial Tears SOLN 15 ML BOTTLE BOTH EYES PRN (12:46)
[2021-12-21] MEDS ORDERED: FentaNYL (PF) 1,000 MCG/100 ML IV.SOLN IVC SCH (13:00)
[2021-12-21] MEDS ORDERED: Chlorhexidine Rinse 15 ML MOUTHWASH MM SCH (13:00)
[2021-12-21] MEDS ORDERED: Norepinephrine 4 MG/254 ML IV.SOLN IVC SCH (13:00)
[2021-12-21] MEDS ORDERED: Pantoprazole 40 MG VIAL IVP SCH (13:00)
[2021-12-21] MEDS ORDERED: Amiodarone Premix 360 MG/200 ML BAG IVC ONE (13:00)
[2021-12-21 13:50] LABS: Bilirubin,Urine Negative (Negative); Blood,Urine Large (Negative); Clarity,Urine Ex.Turbid (Clear); Color,Urine Light-Orange (Yellow); Glucose,Urine (UA) 200 mg/dL (Normal); Ketones,Urine Negative (Negative); Leukocyte Esterase,Urine Negative (Negative); Nitrite,Urine Negative (Negative); PH,Urine 6.5 pH Units (5.0-8.0); Protein,Urine >=300 mg/dL (Neg-Trace); RBC,Urine TNTC per hpf (0-3); Specific Gravity,Urine 1.019 (1.010-1.025); Sperm,Urine Present per hpf (None Seen); Urobilinogen,Urine Normal (Normal); WBC,Urine 30-50 per hpf (0-3)
[2021-12-21 13:55] LABS: INR 1.3
[2021-12-21 14:09] LABS: ABG Base Excess -13 mEq/L (-2 to 3); ABG HCO3 14 mEq/L (21-27); ABG Oxygen Saturation 100 % (95-98); ABG PCO2 32 mmHg (35-45); ABG PH 7.24 pH Units (7.32-7.45); ABG PO2 416 mmHg (85-104); ABG TCO2 15 mEq/L (20-26); Blood Gas Modality ASSIST CONTROL; Blood Gas VT 475 cc
[2021-12-21 14:42] LABS: Hematocrit 35.8 % (37.5-50.1); Hemoglobin 10.8 g/dL (12.9-16.9); Mean Corpuscular HGB Conc 30.2 g/dL (31.6-35.5); Mean Corpuscular Hemoglobin 33.6 pg (28.0-33.3); Mean Corpuscular Volume 111.5 fL (83.0-100.0); Mean Platelet Volume 11.4 fL (9.4-12.4); Nucleated Red Blood Cells 0.2 /100 WBC (0); Platelet Count 146 K/mcL (140-400); Red Blood Count 3.21 M/mcL (4.19-5.50); Red Cell Distribution Width 18.1 % (11.5-14.5); White Blood Count 11.6 K/mcL (4.3-11.1)
[2021-12-21] MEDS ORDERED: Amiodarone 450 MG in 0.9 % Sodium Chloride Excel Bg 241 ML IVC ONE (14:53)
[2021-12-21] MEDS ORDERED: Furosemide 40 MG TABLET PO SCH (14:56)
[2021-12-21] MEDS ORDERED: Vasopressin 40 UNIT in D5% in Water 100 ML IVC SCH (15:00)
[2021-12-21 15:13] LABS: Anisocytosis 1+ (Not Present); Lymphocytes # 2.6 K/mcL (0.6-4.6); Macrocytosis Present (Not Present); Neutrophils # 9.1 K/mcL (1.6-8.9); Platelet Estimate Normal (Normal)
[2021-12-21] MEDS ORDERED: 0.9 % Sodium Chloride 1,000 ML IVC ONE (15:22)
[2021-12-21] MEDS ORDERED: Artificial Tears SOLN 15 ML BOTTLE BOTH EYES SCH (16:00)
[2021-12-21 16:08] LABS: Troponin I 2.43 ng/mL (< 0.04)
[2021-12-21 16:13] VITALS: O2SAT 98
[2021-12-21 16:16] VITALS: TEMP 94.5
[2021-12-21 16:30] LABS: Albumin 2.9 g/dL (3.5-5.7); Albumin/Globulin Ratio 0.9 (1.1-2.2); Bilirubin,Total 1.4 mg/dL (0.3-1.0); Calcium 10.9 mg/dL (8.6-10.3); Globulin 3.1 g/dL (2.4-3.5); Magnesium 2.7 mg/dL (1.6-2.6); Phosphorous 9.5 mg/dL (2.7-4.5); Potassium 6.5 mEq/L (3.5-5.1)
[2021-12-21] MEDS ORDERED: Norepinephrine 16 MG in 0.9 % Sodium Chloride 500 ML IVC SCH (17:00)
[2021-12-21 17:10] VITALS: BP 69/36; PULSE 55
[2021-12-21] MEDS ORDERED: Atropine Sulfate 1% 40 DROP/2 ML BOTTLE SL PRN (17:28)
[2021-12-21] MEDS ORDERED: Piperacillin/Tazobactam 3.375 GM in 0.9 % Sodium Chloride Mini Bag 100 ML IVPB SCH (18:00)
[2021-12-21] MEDS ORDERED: Amiodarone Premix 360 MG/200 ML BAG IVC SCH (19:00)
[2021-12-21] MEDS ORDERED: Ampicillin/Sulbactam 3,000 MG in 0.9 % Sodium Chloride Mini Bag 100 ML IVPB SCH (20:00)
[2021-12-21] MEDS ORDERED: Hydrocortisone Sodium Succ 100 MG/2 ML VIAL IVP SCH (20:00)
== END 2021-12-21 17:51 | disposition expired ==
LOC: EMEROOARM 19:29 → 2ANU 19:29 → SUATTDRO 21:33 → 2ANU 22:45 → ICNU 12-21 15:27
PROVIDERS: ADMIT Internal Medicine; ATTEND Internal Medicine